=== PATIENT | female | born 1970 | race Caucasian/White ===

== ENCOUNTER → 2017-06-24 | Outpatient (CLI) | payer OTHER ==
[~2017-06-24] MED LIST: ASPI81TA27 PO; SIMV10TA84 PO
[2017-06-24 08:11] LABS: Basophils # (auto) 0 uL; Basophils % (auto) 0.4 % (0.0-2.0); Eosinophils # (auto) 0.2 uL; Eosinophils % (auto) 2.6 % (0.0-7.0); Hematocrit 43.5 % (36.0-46.0); Lymphocytes # (auto) 1.7 uL; Lymphocytes % (auto) 21.8 % (10.0-50.0); Mean Corpuscular Hemoglobin 32.1 pg (28.0-32.0); Mean Corpuscular Hgb Conc. 34.3 g/dL (32.0-36.0); Mean Corpuscular Volume 93.6 fL (80.0-100.0); Monocytes # (auto) 0.8 uL; Monocytes % (auto) 9.7 % (0.0-12.0); Neutrophils # (auto) 5.2 uL; Neutrophils % (auto) 65.5 % (37.0-80.0); Platelet Count (auto) 266 10^3/uL (140-450); Red Blood Cells 4.65 10^6/uL (4.0-5.20); White Blood Cell 7.9 10^3/uL (4.4-10.8)
[2017-06-24 08:35] LABS: Albumin 3.7 g/dL (3.4-5.0); BUN/Creatinine Ratio 14.8; Bilirubin, Total 0.5 mg/dL (0.2-1.0); Calcium 9.2 mg/dL (8.5-10.1); Potassium 4.4 mmol/L (3.5-5.1)
== END | disposition home or self-care (01) ==
LOC: LAB 07:28
PROVIDERS: ATTEND Physician Assistant
DX: E78.5 Hyperlipidemia, unspecified (principal); E11.22 Type 2 diabetes mellitus with diabetic chronic kidney disease; I12.9 Hypertensive chronic kidney disease with stage 1 through stage 4 chronic kidney disease, or unspecified chronic kidney disease; N18.3 Chronic kidney disease, stage 3 (moderate); Z86.73 Personal history of transient ischemic attack (TIA), and cerebral infarction without residual deficits; Z79.899 Other long term (current) drug therapy
CPT/HCPCS: 36415; 80053; 80061; 83036; 85025

== ENCOUNTER → 2018-02-02 | Outpatient (CLI) | payer OTHER ==
[2018-02-02 09:19] LABS: White Blood Cell 6.3 10^3/uL (4.4-10.8)
[2018-02-02 09:25] LABS: Basophils % (auto) 1.2 % (0.0-2.0); Lymphocytes % (auto) 20.1 % (10.0-50.0); Monocytes % (auto) 9.1 % (0.0-12.0); Neutrophils # (auto) 4.3 uL; Neutrophils % (auto) 67.6 % (37.0-80.0)
[2018-02-02 09:26] LABS: Basophils # (auto) 0.1 uL; Eosinophils # (auto) 0.1 uL; Hematocrit 44.7 % (36.0-46.0); Hemoglobin 15.2 g/dL (12.2-16.2); Lymphocytes # (auto) 1.3 uL; Mean Corpuscular Hemoglobin 32.2 pg (28.0-32.0); Mean Corpuscular Volume 94.5 fL (80.0-100.0); Monocytes # (auto) 0.6 uL; Platelet Count (auto) 264 10^3/uL (140-450); Red Blood Cells 4.72 10^6/uL (4.0-5.20); Red Cell Distribution Width 12.8 % (11.8-14.3)
[2018-02-02 10:45] LABS: Follicle Stimulating Hormone 11.42 IU/L (SEE BELOW); Leuteinizing Hormone 5.3 IU/L
== END | disposition home or self-care (01) ==
LOC: LAB 08:38
PROVIDERS: ATTEND Obstetrics & Gynecology
DX: N93.9 Abnormal uterine and vaginal bleeding, unspecified (principal); I10 Essential (primary) hypertension; E11.9 Type 2 diabetes mellitus without complications
CPT/HCPCS: 36415; 82670; 83001; 83002; 84403; 84443; 85025

== ENCOUNTER → 2018-10-01 | Outpatient (CLI) | payer OTHER ==
[~2018-10-01] MED LIST changes: +ASPI-404 PO; -ASPI81TA27 PO
[2018-10-01 10:36] LABS: Basophils # (auto) 0 uL; Basophils % (auto) 0.6 % (0.0-2.0); Eosinophils # (auto) 0.1 uL; Eosinophils % (auto) 1.7 % (0.0-7.0); Hematocrit 46.3 % (36.0-46.0); Hemoglobin 15.7 g/dL (12.2-16.2); Lymphocytes # (auto) 1.3 uL; Lymphocytes % (auto) 18.5 % (10.0-50.0); Mean Corpuscular Hemoglobin 31.9 pg (28.0-32.0); Mean Corpuscular Volume 93.8 fL (80.0-100.0); Monocytes # (auto) 0.7 uL; Monocytes % (auto) 10.7 % (0.0-12.0); Neutrophils # (auto) 4.7 uL; Neutrophils % (auto) 68.5 % (37.0-80.0); Platelet Count (auto) 258 10^3/uL (140-450); Red Blood Cells 4.94 10^6/uL (4.0-5.20); Red Cell Distribution Width 12.7 % (11.8-14.3); White Blood Cell 6.9 10^3/uL (4.4-10.8)
[2018-10-01 11:51] LABS: Follicle Stimulating Hormone 4.56 IU/L (SEE BELOW); Leuteinizing Hormone 1.9 IU/L
== END | disposition home or self-care (01) ==
LOC: LAB 10:07
PROVIDERS: ATTEND Obstetrics & Gynecology
DX: N95.1 Menopausal and female climacteric states (principal)
CPT/HCPCS: 36415; 82670; 83001; 83002; 84443; 85025

== ENCOUNTER → 2018-11-30 | Outpatient (CLI) | payer OTHER ==
[2018-11-30 09:40] LABS: Basophils # (auto) 0 uL; Basophils % (auto) 0.4 % (0.0-2.0); Eosinophils # (auto) 0.1 uL; Eosinophils % (auto) 1.5 % (0.0-7.0); Hematocrit 43.4 % (36.0-46.0); Hemoglobin 14.6 g/dL (12.2-16.2); Lymphocytes # (auto) 2.1 uL; Lymphocytes % (auto) 20.8 % (10.0-50.0); Mean Corpuscular Hemoglobin 31.7 pg (28.0-32.0); Mean Corpuscular Hgb Conc. 33.8 g/dL (32.0-36.0); Mean Corpuscular Volume 93.9 fL (80.0-100.0); Monocytes # (auto) 0.9 uL; Neutrophils # (auto) 6.7 uL; Neutrophils % (auto) 68.3 % (37.0-80.0); Platelet Count (auto) 292 10^3/uL (140-450); Red Blood Cells 4.62 10^6/uL (4.0-5.20); Red Cell Distribution Width 12.7 % (11.8-14.3); White Blood Cell 9.9 10^3/uL (4.4-10.8)
[2018-11-30 10:24] LABS: Potassium 4.1 mmol/L (3.5-5.1)
[2018-11-30 10:41] LABS: Albumin 3.4 g/dL (3.4-5.0); BUN/Creatinine Ratio 16.9; Bilirubin, Total 0.4 mg/dL (0.2-1.0); Calcium 9.1 mg/dL (8.5-10.1); Total Protein 7.6 g/dL (6.4-8.2)
== END | disposition home or self-care (01) ==
LOC: LAB 08:36
PROVIDERS: ATTEND Physician Assistant
DX: R03.0 Elevated blood-pressure reading, without diagnosis of hypertension (principal); E78.5 Hyperlipidemia, unspecified; N95.1 Menopausal and female climacteric states; F32.81 Premenstrual dysphoric disorder
CPT/HCPCS: 36415; 80053; 80061; 85025

== ENCOUNTER → 2019-03-14 | Outpatient (CLI) | payer OTHER ==
[2019-03-14 09:44] LABS: Albumin 3.8 g/dL (3.4-5.0); Calcium 8.7 mg/dL (8.5-10.1)
[2019-03-14 09:48] LABS: BUN/Creatinine Ratio 17.9; Bilirubin, Total 0.4 mg/dL (0.2-1.0); Total Protein 7.8 g/dL (6.4-8.2)
[2019-03-14 11:04] LABS: Basophils # (auto) 0 uL; Basophils % (auto) 0.4 % (0.0-2.0); Eosinophils # (auto) 0.2 uL; Eosinophils % (auto) 2.6 % (0.0-7.0); Hemoglobin 15.4 g/dL (12.2-16.2); Lymphocytes # (auto) 1.9 uL; Lymphocytes % (auto) 26.8 % (10.0-50.0); Mean Corpuscular Hgb Conc. 33.5 g/dL (32.0-36.0); Mean Corpuscular Volume 92.5 fL (80.0-100.0); Monocytes # (auto) 0.6 uL; Neutrophils # (auto) 4.3 uL; Neutrophils % (auto) 61.2 % (37.0-80.0); Platelet Count (auto) 283 10^3/uL (140-450); Red Blood Cells 4.97 10^6/uL (4.0-5.20); Red Cell Distribution Width 12.7 % (11.8-14.3); White Blood Cell 7.1 10^3/uL (4.4-10.8)
== END | disposition home or self-care (01) ==
LOC: LAB 09:00
PROVIDERS: ATTEND Physician Assistant
DX: E78.5 Hyperlipidemia, unspecified (principal); F32.81 Premenstrual dysphoric disorder; E55.9 Vitamin D deficiency, unspecified; R03.0 Elevated blood-pressure reading, without diagnosis of hypertension; R73.9 Hyperglycemia, unspecified
CPT/HCPCS: 36415; 80053; 80061; 82306; 85025

== ENCOUNTER → 2019-08-08 | Outpatient (CLI) | payer OTHER | END | disposition home or self-care (01) | LOC: LAB 11:18 | PROVIDERS: ATTEND Physician Assistant | DX: N39.0 Urinary tract infection, site not specified (principal) | CPT/HCPCS: 87086 ==

== ENCOUNTER → 2019-08-30 | Outpatient (CLI) | payer OTHER | END | disposition home or self-care (01) | LOC: LAB 10:41 | PROVIDERS: ATTEND Internal Medicine | DX: N39.0 Urinary tract infection, site not specified (principal) | CPT/HCPCS: 87086 ==

== ENCOUNTER → 2019-09-08 | Outpatient (CLI) | payer OTHER ==
[~2019-09-08] MED LIST changes: -ASPI-404 PO; +ASPI-543 PO
== END | disposition home or self-care (01) ==
LOC: LAB 13:23
PROVIDERS: ATTEND Urology
DX: N39.0 Urinary tract infection, site not specified (principal)
CPT/HCPCS: 87086; 87088; 87186

== ENCOUNTER → 2019-10-18 | Outpatient (CLI) | payer OTHER | END | disposition home or self-care (01) | LOC: LAB 12:05 | PROVIDERS: ATTEND Urology | DX: N39.0 Urinary tract infection, site not specified (principal) | CPT/HCPCS: 87086 ==

== ENCOUNTER → 2020-03-21 | Outpatient (CLI) | payer OTHER | END | disposition home or self-care (01) | LOC: LAB 10:26 | PROVIDERS: ATTEND Urology | DX: N39.0 Urinary tract infection, site not specified (principal) | CPT/HCPCS: 87086 ==

== ENCOUNTER → 2020-05-22 | Outpatient (CLI) | payer OTHER ==
[2020-05-22 08:47] LABS: Basophils # (auto) 0 10 ^3/uL (0-0.2); Basophils % (auto) 0.4 % (0.0-2.0); Eosinophils # (auto) 0.1 10 ^3/uL (0-0.8); Eosinophils % (auto) 1.7 % (0.0-7.0); Hematocrit 43.2 % (36.0-46.0); Hemoglobin 14.9 g/dL (12.2-16.2); Lymphocytes # (auto) 1.9 10 ^3/uL (0.4-5.4); Lymphocytes % (auto) 23.2 % (10.0-50.0); Mean Corpuscular Hemoglobin 32.4 pg (28.0-32.0); Mean Corpuscular Hgb Conc. 34.5 g/dL (32.0-36.0); Mean Corpuscular Volume 93.8 fL (80.0-100.0); Monocytes # (auto) 0.8 10 ^3/uL (0-1.3); Monocytes % (auto) 9.4 % (0.0-12.0); Neutrophils # (auto) 5.2 10 ^3/uL (1.6-8.6); Neutrophils % (auto) 65.3 % (37.0-80.0); Platelet Count (auto) 262 10^3/uL (140-450); Red Cell Distribution Width 12.7 % (11.8-14.3)
[2020-05-22 09:29] LABS: Albumin 3.9 g/dL (3.4-5.0); Potassium 4.3 mmol/L (3.5-5.1)
[2020-05-22 11:22] LABS: BUN/Creatinine Ratio 19.8; Bilirubin, Total 0.8 mg/dL (0.2-1.0); Calcium 9.4 mg/dL (8.5-10.1); Total Protein 7.9 g/dL (6.4-8.2)
== END | disposition home or self-care (01) ==
LOC: LAB 08:26
PROVIDERS: ATTEND Physician Assistant
DX: Z00.00 Encounter for general adult medical examination without abnormal findings (principal); E78.5 Hyperlipidemia, unspecified; R73.9 Hyperglycemia, unspecified; E55.9 Vitamin D deficiency, unspecified; N39.0 Urinary tract infection, site not specified; Z68.32 Body mass index [BMI] 32.0-32.9, adult
CPT/HCPCS: 36415; 80053; 80061; 82306; 85025

== ENCOUNTER → 2021-03-29 | Outpatient (CLI) | payer OTHER ==
[2021-03-29 09:13] LABS: Basophils # (auto) 0 10 ^3/uL (0-0.2); Basophils % (auto) 0.4 % (0.0-2.0); Eosinophils # (auto) 0.2 10 ^3/uL (0-0.8); Eosinophils % (auto) 2.7 % (0.0-7.0); Hemoglobin 14.6 g/dL (12.2-16.2); Lymphocytes # (auto) 1.7 10 ^3/uL (0.4-5.4); Lymphocytes % (auto) 27.2 % (10.0-50.0); Mean Corpuscular Hemoglobin 31.8 pg (28.0-32.0); Mean Corpuscular Hgb Conc. 34.1 g/dL (32.0-36.0); Mean Corpuscular Volume 93.3 fL (80.0-100.0); Monocytes # (auto) 0.6 10 ^3/uL (0-1.3); Monocytes % (auto) 9.5 % (0.0-12.0); Neutrophils # (auto) 3.8 10 ^3/uL (1.6-8.6); Neutrophils % (auto) 60.2 % (37.0-80.0); Red Blood Cells 4.61 10^6/uL (4.0-5.20); White Blood Cell 6.4 10^3/uL (4.4-10.8)
[2021-03-29 09:25] LABS: Albumin 3.6 g/dL (3.4-5.0); Potassium 4.1 mmol/L (3.5-5.1)
[2021-03-29 09:30] LABS: BUN/Creatinine Ratio 18.3; Bilirubin, Total 0.4 mg/dL (0.2-1.0); Total Protein 7.3 g/dL (6.4-8.2)
== END | disposition home or self-care (01) ==
LOC: LAB 08:19
PROVIDERS: ATTEND Nurse Practitioner Family
DX: E55.9 Vitamin D deficiency, unspecified (principal); F41.9 Anxiety disorder, unspecified; E73.9 Lactose intolerance, unspecified; E78.5 Hyperlipidemia, unspecified
CPT/HCPCS: 36415; 80053; 80061; 82306; 83036; 85025

== ENCOUNTER → 2021-06-17 | Outpatient (CLI) | payer OTHER | END | disposition home or self-care (01) | LOC: LAB 15:10 | PROVIDERS: ATTEND Urology | DX: N39.0 Urinary tract infection, site not specified (principal) | CPT/HCPCS: 87086 ==

== ENCOUNTER → 2021-06-25 | Outpatient (CLI) | payer OTHER | END | disposition home or self-care (01) | LOC: LAB 11:52 | PROVIDERS: ATTEND Urology | DX: N39.0 Urinary tract infection, site not specified (principal) | CPT/HCPCS: 87086 ==

== ENCOUNTER → 2022-04-07 | Outpatient (CLI) | payer OTHER ==
[2022-04-07 09:50] LABS: Basophils # (auto) 0 10 ^3/uL (0-0.2); Basophils % (auto) 0.5 % (0.0-2.0); Eosinophils # (auto) 0.2 10 ^3/uL (0-0.8); Eosinophils % (auto) 2.5 % (0.0-7.0); Hematocrit 43.9 % (36.0-46.0); Hemoglobin 15.2 g/dL (12.2-16.2); Lymphocytes # (auto) 1.8 10 ^3/uL (0.4-5.4); Lymphocytes % (auto) 25.4 % (10.0-50.0); Mean Corpuscular Hgb Conc. 34.6 g/dL (32.0-36.0); Mean Corpuscular Volume 92.5 fL (80.0-100.0); Monocytes # (auto) 0.7 10 ^3/uL (0-1.3); Monocytes % (auto) 9.2 % (0.0-12.0); Neutrophils # (auto) 4.5 10 ^3/uL (1.6-8.6); Neutrophils % (auto) 62.4 % (37.0-80.0); Red Blood Cells 4.74 10^6/uL (4.0-5.20); Red Cell Distribution Width 12.7 % (11.8-14.3); White Blood Cell 7.2 10^3/uL (4.4-10.8)
[2022-04-07 10:11] LABS: Potassium 4.2 mmol/L (3.5-5.1)
[2022-04-07 10:19] LABS: Albumin 3.7 g/dL (3.4-5.0); Bilirubin, Total 0.5 mg/dL (0.2-1.0); Calcium 9.1 mg/dL (8.5-10.1); Total Protein 7.7 g/dL (6.4-8.2)
== END | disposition home or self-care (01) ==
LOC: LAB 08:52
PROVIDERS: ATTEND Nurse Practitioner Family
DX: R73.03 Prediabetes (principal); E55.9 Vitamin D deficiency, unspecified; E78.5 Hyperlipidemia, unspecified
CPT/HCPCS: 36415; 80053; 80061; 82043; 82306; 84439; 84443; 85025

== ENCOUNTER → 2023-10-13 | Outpatient (CLI) | payer OTHER ==
[~2023-10-13] MED LIST changes: +SIMV10TA20 PO; -SIMV10TA84 PO
[2023-10-14 06:06] LABS: RPR Non Reactive (Non Reactive)
[2023-10-14 13:45] LABS: Chlamydia Trachomatis, NAA Negative (Negative); Neisseria gonorrhoeae, NAA Negative (Negative)
[2023-10-15 02:06] LABS: HSV 1 IgG Antibody <0.91 index (0.00-0.90); HSV 2 IgG Antibody <0.91 index (0.00-0.90)
== END | disposition home or self-care (01) ==
LOC: LAB 11:35
PROVIDERS: ATTEND Nurse Practitioner Family
DX: Z20.2 Contact with and (suspected) exposure to infections with a predominantly sexual mode of transmission (principal)
CPT/HCPCS: 86592; 86695; 86696; 86703

== ENCOUNTER → 2024-04-14 | Outpatient (CLI) | payer OTHER ==
[2024-04-14 11:15] LABS: Basophils # (auto) 0 10 ^3/uL (0-0.2); Basophils % (auto) 0.7 % (0.0-2.0); Eosinophils # (auto) 0.2 10 ^3/uL (0-0.8); Hematocrit 45.7 % (36.0-46.0); Hemoglobin 15.4 g/dL (12.2-16.2); Lymphocytes # (auto) 1.7 10 ^3/uL (0.4-5.4); Lymphocytes % (auto) 24.7 % (10.0-50.0); Mean Corpuscular Hemoglobin 31.1 pg (28.0-32.0); Mean Corpuscular Hgb Conc. 33.7 g/dL (32.0-36.0); Mean Corpuscular Volume 92.3 fL (80.0-100.0); Monocytes # (auto) 0.6 10 ^3/uL (0-1.3); Monocytes % (auto) 9.1 % (0.0-12.0); Neutrophils # (auto) 4.2 10 ^3/uL (1.6-8.6); Neutrophils % (auto) 62.5 % (37.0-80.0); Nucleated Red Blood Cells % 0.1 %; Platelet Count (auto) 256 10^3/uL (140-450); Red Blood Cells 4.94 10^6/uL (4.0-5.20); Red Cell Distribution Width 13.4 % (11.8-14.3); White Blood Cell 6.7 10^3/uL (4.4-10.8)
[2024-04-14 11:53] LABS: Alanine Aminotransferase 19 U/L (7-40); Albumin 4.8 g/dL (3.2-4.8); Anion Gap 9 (5-15); Aspartate Aminotransferase 20 U/L (13-40); BUN/Creatinine Ratio 13.5 (10.0-20.0); Blood Urea Nitrogen 12 mg/dL (9-23); Calcium 10.1 mg/dL (8.7-10.4); Carbon Dioxide 25 mmol/L (20-31); Chloride 103 mmol/L (98-107); Cholesterol 174 mg/dL (< 200); Glucose 99 mg/dL (74-106); HDL Cholesterol 60 mg/dL (40-59); LDL Cholesterol 95 mg/dL (< 100); Potassium 4.4 mmol/L (3.5-5.1); Sodium 137 mmol/L (136-145); Triglycerides 68 mg/dL (< 150)
[2024-04-14 11:54] LABS: Bilirubin, Total 0.6 mg/dL (0.2-1.0)
[2024-04-14 12:01] LABS: Alkaline Phosphatase 157 U/L (46-116)
== END | disposition home or self-care (01) ==
LOC: LAB 10:56
PROVIDERS: ATTEND Nurse Practitioner Family
DX: E78.5 Hyperlipidemia, unspecified (principal); E55.9 Vitamin D deficiency, unspecified; R73.03 Prediabetes; F41.9 Anxiety disorder, unspecified
CPT/HCPCS: 36415; 80053; 80061; 82043; 82306; 82672; 83036; 84403; 84443; 85025

== ENCOUNTER → 2024-06-29 | Outpatient (CLI) | payer OTHER ==
[2024-06-30 08:07] LABS: Immunoglobulin A 305 mg/dL (87-352)
[2024-07-02 06:07] LABS: Endomysial IgA Antibody Negative (Negative)
== END | disposition home or self-care (01) ==
LOC: LAB 09:33
PROVIDERS: ATTEND Physician Assistant
DX: R19.7 Diarrhea, unspecified (principal)
CPT/HCPCS: 82784; 83516; 86255; 87045; 87427; 87493

== ENCOUNTER → 2024-09-10 | Day surgery (SDC) | payer OTHER ==
[2024-09-07 11:33] LABS: Hematocrit 45.9 % (36.0-46.0); Hemoglobin 15.4 g/dL (12.2-16.2); Mean Corpuscular Hemoglobin 30.6 pg (28.0-32.0); Mean Corpuscular Volume 90.8 fL (80.0-100.0); Nucleated Red Blood Cells % 0.1 %
[2024-09-07 11:48] LABS: INR 0.97 (0.9-1.15); Partial Thromboplastin Time 29.7 SEC (24.5-34.5); Prothrombin Time 10.3 sec (9.3-11.8)
[2024-09-07 11:51] LABS: Alanine Aminotransferase 19 U/L (7-40); Albumin 4.8 g/dL (3.2-4.8); Anion Gap 9 (5-15); BUN/Creatinine Ratio 12.6 (10.0-20.0); Bilirubin, Total 0.4 mg/dL (0.2-1.0); Blood Urea Nitrogen 11 mg/dL (9-23); Calcium 10.1 mg/dL (8.7-10.4); Carbon Dioxide 27 mmol/L (20-31); Chloride 103 mmol/L (98-107); Glucose 94 mg/dL (74-106); Potassium 4.3 mmol/L (3.5-5.1); Sodium 139 mmol/L (136-145); Total Protein 7.9 g/dL (5.7-8.2)
[2024-09-07 11:57] LABS: Alkaline Phosphatase 137 U/L (46-116)
[~2024-09-10] VITALS: Ht 157.5 cm; Wt 79.8 kg
[~2024-09-10] MED LIST changes: +ASPI81CH59 PO; +CALC280T PO; +CHOL20007 PO; +D-MA1POW OR; +HYDR10SY18 PO; +MAGN400T40 PO; +OXYB10GE TOP; +ZINC100T5 PO
[2024-09-10] MEDS: fentaNYL CITRATE 100 MCG/2 ML VL ONE (10:03)
[2024-09-10] MEDS: MIDAZOLAM HCL 2MG/2ML 2ml VIAL (1mg/ml) ONE ×3 (10:03→10:26)
[2024-09-10] MEDS: EPINEPHrine HCL 1 MG/10 ML SYRG ONE ×2 (10:19→10:26)
--- NOTE | 2024-09-10 10:48 | DVHNC2 ---
Procedure - PROCEDURE DATE: SEPTEMBER 10, 2024 PERFORMED BY: DR. BACON REFERRING PROVIDER:DR LESTER KURTZ PROCEDURE PERFORMED: 1. COLONOSCOPY WITH MODERATE SEDATION 2.COLONOSCOPY WITH BIOPSY 3.COLONOSCOPY WITH COLD SNARE POLYPECTOMY 4.COLONOSCOPY WITH ENDOCLIP PLACEMENT PREPROCEDURE DIAGNOSIS: 1. COLON CANCER SCREENING 2.CHANGE IN BOWEL HABITS POSTPROCEDURE DIAGNOSIS: 1. INTERNALHEMORRHOIDS 2. SEVERE DIVERTICULOSIS WITH NARROWING LEFT COLON 3.INFLAMMED ILEOCECAL VALVE MEDICATIONS USED: 9MG OF VERSED AND 100 MCG OF FENTANYL IV INDICATIONS FOR PROCEDURE: THE PATIENT IS A 53`-YEAR-OLD FEMALE PRESENTS FOR OUTPATIENT COLONOSCOPY FOR SCREENING, CHANGE IN BOWEL HABITS THAT IMPROVED WITH D/C ABX FOR CHRONIC UTI DETAILS OF THE PROCEDURE: INFORMED CONSENT WAS OBTAINED AFTER RISKS BENEFITS AND ALTERNATIVES WERE DISCUSSED AT LENGTH WITH THE PATIENT. THE PATIENT GAVE CONSENT TO THE PROCEDURES WELL A MEDICATION USED FOR SEDATION. THE PATIENT WAS PLACED IN THE LEFT LATERAL DECUBITUS POSITION. DIGITAL RECTAL EXAMINATION SHOWED INTERNAL HEMORRHOIDS AN OLYMPUS VARIABLE TORSION ADULT COLONOSCOPE WAS INSERTED INTO THE RECTUM ADVANCE THE SIGMOID, I COULD NOT ADVANCE BEYOND THIS POINT DUE TO INFLAMMATION AND NARROWING DUE TO DIVERTICULOSIS. THE SCOPE WAS WITHDRAWN AND A ENDOSCOPE WAS INSERTED AND AND EASILY ADVANCED TO THE CECUM. THE SCOPE WAS THEN WITHDRAWN. THE PREP WAS GOOD WITH ONLY SMALL AMOUNTS OF STOOL. THE VALVE WAS ENLARGED AND INFLAMMED-BIOPSIES WERE TAKEN AND THE PATIENT HAD OOZING OF BLOOD. MORE THAN 30CC WAS NOTED AND EPINEPHRINE WAS INJECTED TO CONTROL BLEEDING. THE SCOPE WAS THEN WITHDRAWN. THERE WERE NO LARGE POLYPS, MASSES, STRICTURES, OR ARTERIOVENOUS MALFORMATION SEEN. THERE WAS SEVERE DIVERTICULOSIS SEEN. THERE WAS A POLYP IN THE RECTUM MEASURING 6MM REMOVED WITH SNARE AND ONE ENDOCLIP WAS PLACED. RETROFLEXION SHOWED INTERNAL HEMORRHOIDS. PATIENT TOLERATED THE PROCEDURE WELL. PREP SCORE: 9 IMPRESSION: 1. SEVERE DIVERTICULOSIS AND NARROWING OF THE LEFT COLON 2. INFLAMED IC VALVE BIOSPIES TAKEN AND OOZING OF BLOOD 3.INTERNAL HEMORRHOIDS 4.RECTAL POLYP RECOMMENDATIONS: 1. FOLLOW UP IN GI CLINIC 2. WILL OBSERVE FOR ANY COMPLICATIONS IN RECOVERY 3. REPEAT COLONOSCOPY IN 3 YEARS UNLESS INDICATED OTHERWISE 4.PATIENT WILL NEED CT ABD AND PELVIS 5.CONSIDER IBD WORKUP, FECAL CALPROTECTIN AND IMAGING I WOULD LIKE TO THANK DR. KURTZ FOR THE REFERRAL LANDY BACON MD Sep 10, 2024 10:48
--- NOTE | 2024-09-10 11:59 | DVH ---
EXAM: CT Abdomen and Pelvis Without Intravenous Contrast CLINICAL INDICATION: PAIN, BLOATING, ABD HARDNESS TECHNIQUE: Axial computed tomography images of the abdomen and pelvis without intravenous contrast. This CT exam was performed using one or more of the following dose reduction techniques: automated exposure control, adjustment of the mA and/or kV according to patient size, and/or use of iterative r econstruction technique. CONTRAST: COMPARISON: No relevant prior studies available. FINDINGS: LUNG BASES: Unremarkable. No mass. No consolidation. MEDIASTINUM: Small esophageal hiatal hernia. ABDOMEN: LIVER: Ill-defined hypodense lesion of the liver, likely cysts. This could be further evaluated wit h MRI or CT of the abdomen using hepatic mass protocol. Fatty infiltration of the liver. GALLBLADDER AND BILE DUCTS: Unremarkable. No calcified stones. No ductal dilation. PANCREAS: Unremarkable. No ductal dilation. SPLEEN: Unremarkable. No splenomegaly. ADRENALS: Unremarkable. No mass. KIDNEYS AND URETERS: Unremarkable. No obstructing stones. No hydronephrosis. STOMACH AND BOWEL: Fecal retention in the colon consistent with constipation. No obstruction. No mucosal thickening. PELVIS: APPENDIX: No findings to suggest acute appendicitis. BLADDER: Unremarkable. No stones. REPRODUCTIVE: Unremarkable as visualized. ABDOMEN and PELVIS: INTRAPERITONEAL SPACE: Unremarkable. No free air. No significant fluid collection. BONES/JOINTS: No acute fracture. No dislocation. SOFT TISSUES: Umbilical hernia containing fat. VASCULATURE: Unremarkable. No abdominal aortic aneurysm. LYMPH NODES: Unremarkable. No enlarged lymph nodes. OTHER FINDINGS: Comparison None. . IMPRESSION: 1. Ill-defined hypodense lesion of the liver, likely cysts. This could be further evaluated with MRI or CT of the abdomen using hepatic mass protocol. 2. Small esophageal hiatal hernia. 3. Fecal retention in the colon consistent with constipation. 4. Umbilical hernia containing fat. HS:Y
[2024-09-10 12:15] VITALS: BP 149/89; PULSE 81; RESP 13; O2SAT 100
== END | disposition home or self-care (01) ==
LOC: GI 09:21
PROVIDERS: ATTEND Specialist
DX: R19.5 Other fecal abnormalities (principal); D12.8 Benign neoplasm of rectum; K57.30 Diverticulosis of large intestine without perforation or abscess without bleeding; K64.8 Other hemorrhoids; E66.9 Obesity, unspecified; E78.00 Pure hypercholesterolemia, unspecified; F41.9 Anxiety disorder, unspecified; Z98.51 Tubal ligation status; Z98.890 Other specified postprocedural states; Z82.49 Family history of ischemic heart disease and other diseases of the circulatory system; Z79.82 Long term (current) use of aspirin; Z79.899 Other long term (current) drug therapy; Z86.73 Personal history of transient ischemic attack (TIA), and cerebral infarction without residual deficits
CPT/HCPCS: 36415; 45380; 45385; 74176; 80053; 85025; 85610; 85730; 88305; J0169; J2250; J3010; 99152; 99153

== ENCOUNTER 2024-10-13 11:43 | Outpatient (CLI) | payer OTHER ==
[2024-10-13 12:56] LABS: Alanine Aminotransferase 16 U/L (7-40); Albumin 4.7 g/dL (3.2-4.8); Anion Gap 7 (5-15); BUN/Creatinine Ratio 17.1 (10.0-20.0); Bilirubin, Total 0.3 mg/dL (0.2-1.0); Blood Urea Nitrogen 14 mg/dL (9-23); Calcium 9.5 mg/dL (8.7-10.4); Carbon Dioxide 28 mmol/L (20-31); Chloride 104 mmol/L (98-107); Glucose 100 mg/dL (74-106); Lipase 32 U/L (12-53); Potassium 4.3 mmol/L (3.5-5.1); Sodium 139 mmol/L (136-145); Total Protein 8.0 g/dL (5.7-8.2)
[2024-10-13 12:59] LABS: Alkaline Phosphatase 130 U/L (46-116)
== END 2024-10-13 17:00 | disposition home or self-care (01) ==
LOC: LAB 11:43
PROVIDERS: ATTEND Physician Assistant
DX: K76.89 Other specified diseases of liver (principal)
CPT/HCPCS: 36415; 80053; 83690

== ENCOUNTER 2024-10-28 15:06 | Inpatient (IN) | payer OTHER ==
[~2024-10-28] VITALS: Ht 157.5 cm; Wt 79.0 kg
--- NOTE | 2024-10-28 15:47 | ED.PDOC ---
GI ASSESSMENT HPI Comments This is a 53 year old female presenting to the ED with chief complaint of abdominal pain. Patient reports that she has been experiencing chronic LUQ abdominal pain for the past 2 months. Patient relays that she had a recent colonoscopy done in August where polyps and diverticulosis was found, but medications prescribed after have provided no relief. Patient denies any N/V/D, fever, chills, dizziness, or chest pain. Patient is a hypertensive at arrival. Chief Complaint: Abdominal Pain Time Seen by MD: 15:45 Primary Care Provider: JESICA Patricia Notes: Nurses Notes, Medications, Allergies Allergies: Coded Allergies: NO KNOWN ALLERGIES (Unverified , 06/06/16) Home Meds Reported Medications Aspirin (Aspirin Low Dose) 81 Mg Chw, 1 TAB PO DAILY, #90 TAB 3 Refills 09/07/24 Zinc Gluconate (ZINC) 100 Mg Tab, 100 MG PO, TAB 09/07/24 Cholecalciferol (VITAMIN D3) 2,000 Unit Tab, 1 TAB PO DAILY, #90 TAB 3 Refills 09/07/24 Calcium Amino Acid Chelate (Calcium) 280 Mg Tab, 280 MG PO, TAB 09/07/24 Magnesium Oxide (MAGNESIUM OXIDE) 400 Mg Tab, 1 TAB PO DAILY, #90 TAB 3 Refills 09/07/24 Mannose (D-MANNOSE) Pow, 1 OR, POW 09/07/24 Hydroxyzine Hcl (Hydroxyzine Hcl) 10 Mg/5 Ml Syp, 5 ML PO PRN, #150 ML 09/07/24 Oxybutynin Chloride (Gelnique) 10 % Gel, 1 PACK TOP DAILY, #90 PACK 3 Refills 09/07/24 Aspirin (Aspir-Low) 81 Mg Tab, 81 MG PO DAILY for 30 Days, MG 06/07/16 Simvastatin (Simvastatin) 10 Mg Tab, 10 MG PO DAILY for 30 Days, MG 06/07/16 Information Source: Patient Mode of Arrival: Ambulatory Timing: Months Duration: Since onset Prehospital treatment: None Quality: Sharp Vomitus: None Stool: Normal Severity: Moderate Recent: Recent Surgery Recent Hx of: None Pain Location: Diffuse, LLQ Associated sign and symptoms: Abdominal Pain Past Medical History PAST MEDICAL HISTORY: DM, High Lipids, HTN Surgical History: Denies all surgeries [employer]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 Family History Family History: Reviewed,noncontributory to illness, No family hx of DM, No family hx of Heart philip, No family hx of HTN Social History Smoker: Non-Smoker Alcohol: Denies ETOH Use Drugs: Denies Drug Use Lives In: Home Constitutional: denies: chills, diaphoresis, fatigue, fever, malaise, sweats, weakness, others EENTM: denies: blurred vision, double vision, ear bleeding, ear discharge, ear drainage, ear pain, ear ringing, eye pain, eye redness, hearing loss, mouth pain, mouth swelling, nasal discharge, nose bleeding, nose congestion, nose pain, photophobia, tearing, throat pain, throat swelling, voice changes, others Respiratory: denies: cough, hemoptysis, orthopnea, SOB at rest, shortness of breath, SOB with excertion, stridor, wheezing, others Cardiovascular: denies: chest pain, dizzy spells, diaphoresis, Dyspnea on exertion, edema, irregular heart beat, left arm pain, lightheadedness, palpitations, PND, syncope, others Gastrointestinal: reports: abdominal pain; denies: abdomen distended, blood streaked bowels, constipated, diarrhea, dysphagia, difficulty swallowing, hematemesis, melena, poor appetite, poor fluid intake, rectal bleeding, rectal pain, vomiting, others Genitourinary: denies: abnormal vagina bleeding, burning, dyspareunia, dysuria, flank pain, frequency, hematuria, incontinence, pain, , vagina discharge, urgency, others Neurological: denies: dizziness, fainting, headache, left sided numbness, left sided weakness, numbness, paresthesia, pre-existing deficit, right sided numbness, right sided weakness, seizure, speech problems, tingling, tremors, weakness, others Musculoskeletal: denies: back pain, gout, joint pain, joint swelling, muscle pain, muscle stiffness, neck pain, others Integumetry: denies: bruises, change in color, change in hair/nails, dryness, laceration, lesions, lumps, rash, wounds, others Allergic/Immunocompromised: denies: Difficulty Healing, Frequent Infections, Hives, Itching, others Hematologic/Lymphatic: denies: anemia, blood clots, easy bleeding, easy bruising, swollen glands, others Endocrine: denies: excessive hunger, excessive sweating, excessive thirst, excessive urination, flushing, intolerance to cold, intolerance to heat, unexplained weight gain, unexplained weight loss, others Psychiatric: denies: anxiety, bipolar disorder, depression, hopeless, panic disorder, schizophrenia, sleepless, suicidal, others All Other Systems: Reviewed and Negative Physical Exam General Appearance: Moderate Distress (Moderate distress due to diffuse left lower quadrant abdominal pain), Obese HEENT: Normal ENT Inspection, Pharynx Normal, TMs Normal Neck: Full Range of Motion, Non-Tender, Normal, Normal Inspection Respiratory: Chest Non-Tender, Lungs Clear, No Accessory Muscle Use, No Respiratory Distress, Normal Breath Sounds Cardiovascular: No Edema, No JVD, No Murmur, No Gallop, Normal Peripheral Pulses, Regular Rate/Rhythm Breast Exam: Deferred Gastrointestinal: Other (Diffuse bilateral lower quadrant tenderness to pal pation throughout with left-sided greater than right. Nonspecific pain. No pulsatile masses. Abdomen was mildly rigid.) Genitalia: Deferred Pelvic: Deferred Rectal: Deferred Extremities: No calf tenderness, Normal capillary refill, Normal inspection, Normal range of motion, Non-tender, No pedal edema Musculoskeletal : Apperance: Normal Neurologic: Alert, No Motor Deficits, Normal Affect, Normal Mood, No Sensory Deficits Cerebellar Function: NOT DONE Reflexes: NOT DONE Skin: Dry, Normal Color, Warm Lymphatic: No Adenopathy Was a procedure done? Was a procedure done?: No GI differential Dx Differential Diagnosis: Appendicitis, Cholecystitis, Constipation, Diverticular disease, Gastritis/PUD, Gastroenteritis, Pancreatitis, Other (Diverticulitis) X-Ray, Labs, Meds, VS Vital Signs Date Time Temp Pulse Resp B/P (MAP) Pulse Ox O2 Delivery O2 Flow Rate FiO2 10/28/24 15:17 75 10/28/24 15:07 98.2 100 16 151/115 96 98.2 Lab Test 10/28/24 15:54 Range/Units White Blood Count 12.0 H 4.4-10.8 10^3/uL Red Blood Count 5.31 H 4.0-5.20 10^6/uL Hemoglobin 16.3 H 12.2-16.2 g/dL Hematocrit 47.9 H 36.0-46.0 % Mean Corpuscular Volume 90.1 80.0-100.0 fL Mean Corpuscular Hemoglobin 30.7 28.0-32.0 pg Mean Corpuscular Hemoglobin Concent 34.1 32.0-36.0 g/dL Red Cell Distribution Width 13.2 11.8-14.3 % Platelet Count 326 140-450 10^3/uL Mean Platelet Volume 9.3 6.9-10.8 fL Neutrophils (%) (Auto) 83.1 H 37.0-80.0 % Lymphocytes (%) (Auto) 9.7 L 10.0-50.0 % Monocytes (%) (Auto) 6.1 0.0-12.0 % Eosinophils (%) (Auto) 0.6 0.0-7.0 % Basophils (%) (Auto) 0.5 0.0-2.0 % Neutrophils # (Auto) 10.0 H 1.6-8.6 10 ^3/uL Lymphocytes # (Auto) 1.2 0.4-5.4 10 ^3/uL Monocytes # (Auto) 0.7 0-1.3 10 ^3/uL Eosinophils # (Auto) 0.1 0-0.8 10 ^3/uL Basophils # (Auto) 0.1 0-0.2 10 ^3/uL Nucleated Red Blood Cells 0.1 % Sodium Level 141 136-145 mmol/L Potassium Level 4.6 3.5-5.1 mmol/L Chloride Level 104 98-107 mmol/L Carbon Dioxide Level 25 20-31 mmol/L Anion Gap 12 5-15 Blood Urea Nitrogen 10 9-23 mg/dL Creatinine 0.85 0.550-1.02 mg/dL Glomerular Filtration Rate Calc 83 >90 mL/min BUN/Creatinine Ratio 11.8 10.0-20.0 Serum Glucose 113 H 74-106 mg/dL Calcium Level 10.0 8.7-10.4 mg/dL Troponin I High Sensitivity < 3 L </=34 ng/L Lipase 25 12-53 U/L X-Ray, Labs, Meds, VS Comment All studies performed the ED were evaluated by me personally. EKG revealed a sinus rhythm with a rate of 75. Probable left atrial enlargement noted with right axis deviation. MA interval 122 and QT interval of 479. Serum studies were for any systemic concerns. Urinalysis was pending at time of this note. CT of the abdomen and pelvis revealed a small bowel obstruction and possible metastasis concerns. Liver involvement as well. Patient will be admitted for GI evaluation and possible surgical intervention. Time of 1ST Reevaluation: 18:15 Reevaluation 1ST: Improved Consultation: PCP Patient Education/Counseling: Diagnosis, Treatment Family Education/Counseling: Diagnosis, Treatment, No Family Present SEPSIS Sepsis Screen Date sepsis recognized/suspect: Oct 28, 2024 Time Sepsis recognized/suspect: 1509 Recent Procedure: No Respiratory Rate >20: No Heart Rate >90: Yes Temp<36 C (96.8 F) or >38.3 C: No SBP <90 or MAP <65 mmHG: No New Acute Mental Status Change: No Is the patient on CPAP, BIPAP,: No Physician Orders Electrocardigram (10/28/24 15:24) Urinalysis (10/28/24 15:43) Ct Ab Pel Wo Con-No Oral Or Iv (10/28/24 15:43) Vital Signs Date Time Temp Pulse Resp B/P (MAP) Pulse Ox O2 Delivery O2 Flow Rate FiO2 10/28/24 15:17 75 10/28/24 15:07 98.2 100 16 151/115 96 98.2 Laboratory Tests Test 10/28/24 15:54 White Blood Count 12.0 10^3/uL (4.4-10.8) H Departure 1 Departure Time of Disposition: 18:15 Impression: Primary Impression: Small bowel obstruction Additional Impressions: Hypertension Diabetes Disposition: ADMITTED INPATIENT Condition: Fair Discharged With: Self Critical Care Note Critical Care Time?: No Stability Stability form required: No Heart Score Heart Score: Heart Score Response (Comments) Value History Slightly Suspicious 0 EKG Repolarization Disturb 1 Age 45-64 1 Risk Factors 1 or 2 risk factors 1 Troponin Normal limit 0 Total 3 I personally scribed for NATO PARIKH PAC ([email or web address]) on 10/28/24 at 15:47. Electronically submitted by Manoj Frost ([email or web address]). NATO PARIKH PAC Oct 28, 2024 15:47
[2024-10-28 16:08] LABS: Hematocrit 47.9 % (36.0-46.0); Hemoglobin 16.3 g/dL (12.2-16.2); Mean Corpuscular Hemoglobin 30.7 pg (28.0-32.0); Mean Corpuscular Volume 90.1 fL (80.0-100.0); Nucleated Red Blood Cells % 0.1 %
[2024-10-28 16:25] LABS: Chloride 104 mmol/L (98-107); Potassium 4.6 mmol/L (3.5-5.1); Sodium 141 mmol/L (136-145)
[2024-10-28 16:27] LABS: Anion Gap 12 (5-15); Calcium 10.0 mg/dL (8.7-10.4); Carbon Dioxide 25 mmol/L (20-31)
[2024-10-28 16:32] LABS: BUN/Creatinine Ratio 11.8 (10.0-20.0); Blood Urea Nitrogen 10 mg/dL (9-23); Glucose 113 mg/dL (74-106); Lipase 25 U/L (12-53)
--- NOTE | 2024-10-28 16:32 | DVH ---
EXAM: CT CT AB PEL WO CON-NO ORAL OR IV INDICATION: Diffuse abdominal pain TECHNIQUE: Volumetric multidetector CT images of the abdomen and pelvis were obtained without contras t. All CT scans at this facility use dose modulation, iterative reconstruction, and/or weight based d osing when appropriate to reduce radiation dose to as low as reasonably achievable. COMPARISON: US ABDOMEN COMPLETE SONOGRAM on DOS: 10/18/24 FINDINGS: [LOWER CHEST]: The partially visualized lung bases are clear without a pleural effusion. Trace perica rdial effusion. Indeterminate nodule/ mass of the periphery of the right breast, measuring 0.9 cm [LIVER]: Oval cannonball like hypoattenuating lesions of the liver concerning primarily for metastati c disease. Dominant lesion of the left hepatic lobe, 2.7 cm. [GALLBLADDER AND BILIARY TREE]: No cholelithiasis. [SPLEEN]: Unremarkable. [PANCREAS]: Unremarkable. [ADRENAL GLANDS]: Unremarkable [KIDNEYS]: No hydronephrosis. No nephroureterolithiasis. No suspicious focal lesion. [BLADDER]: Unremarkable for the degree distention. [REPRODUCTIVE ORGANS]: Unremarkable. [BOWEL/MESENTERY]: Stomach is normal. Significant abnormal area of masslike spiculated appearance loc ated within the right lower quadrant measuring 3.4 x 2.3 cm with marginal coarse calcification (coron al image 43). Lesion possibly located in the region of the cecum to ileum and subsequent proximal sma ll-bowel obstruction with dilation up to 3.2 cm. Surgical consultation recommended. Areas of inconsp icuous nodularity and possible soft tissue irregularity along the anterior lower omentum and peritone al carcinomatosis not excluded. Small amount of sigmoid diverticulosis. [ASCITES]: Small volume ascites [LYMPHADENOPATHY]: Measurable abnormal CT apparent lymphadenopathy [VASCULATURE]: No aneurysmal dilatation. [ABDOMINAL WALL]: Unremarkable. [MUSCULOSKELETAL]: No acute fracture or aggressive focal osseous lesion. Multifocal degenerative nixon ge of the visualized spine. IMPRESSION: 1. Abnormal spiculated mass of the right lower quadrant with possible involvement of the cecum to ile um and subsequent proximal small-bowel obstruction. 2. Surgical consultation recommended. 3. Abnormal hypoattenuating lesions of the liver concerning for metastatic disease. 4. Abnormal nodularity of the anterior lower omentum and possible peritoneal carcinomatosis. 5. Small volume ascites.
[2024-10-28] MEDS: HYDROcodone-ACET 10/325MG TAB PO ONE (21:06)
[2024-10-28] MEDS: ONDANSETRON ODT 4 MG TAB PO ONE (21:08)
[2024-10-29] VITALS (9 sets, daily range): BP systolic 102–183; BP diastolic 60–136; PULSE 55–111; RESP 14–31; TEMP 98.1–98.4; O2SAT 94–99
[2024-10-29] MEDS ORDERED: ONDANSETRON HCL 4 MG/2 ML VIAL IV PRN (03:30)
[2024-10-29 03:47] LABS: Hematocrit 41.1 % (36.0-46.0); Hemoglobin 14.2 g/dL (12.2-16.2); Mean Corpuscular Hemoglobin 31.1 pg (28.0-32.0); Mean Corpuscular Volume 90.0 fL (80.0-100.0); Nucleated Red Blood Cells % 0.1 %
[2024-10-29] MEDS: PANTOPRAZOLE 40 MG/10 ML VIAL INJ IV ONE ×2 (03:57→04:00)
[2024-10-29 03:58] LABS: Alanine Aminotransferase 14 U/L (7-40); Alkaline Phosphatase 103 U/L (46-116); Anion Gap 12 (5-15); BUN/Creatinine Ratio 13.8 (10.0-20.0); Blood Urea Nitrogen 11 mg/dL (9-23); Calcium 9.5 mg/dL (8.7-10.4); Carbon Dioxide 24 mmol/L (20-31); Chloride 105 mmol/L (98-107); INR 1.07 (0.9-1.15); Partial Thromboplastin Time 28.9 SEC (24.5-34.5); Potassium 4.1 mmol/L (3.5-5.1); Prothrombin Time 11.3 sec (9.3-11.8); Sodium 141 mmol/L (136-145)
[2024-10-29 03:59] LABS: Total Protein 7.2 g/dL (5.7-8.2)
[2024-10-29 04:00] LABS: Albumin 4.0 g/dL (3.2-4.8); Bilirubin, Total 0.3 mg/dL (0.2-1.0)
--- NOTE | 2024-10-29 04:03 | DVHHPRES ---
History of Present Illness Resident Creating Document: TRINI HO RESIDENT History of Present Illness History of Present Illness (HPI): Yen Zafar is a 53-year-old female with a complex medical history including transient ischemic attack (TIA), chronic urinary tract infections (UTIs), dyslipidemia, urinary incontinence, overactive bladder, and diabetic nephropathy presented with a 10-day history of abdominal pain, vomiting, and diarrhea. She describes the abdominal pain as sharp, continuous, and radiating to the shoulder, with a severity of 10 out of 10. The pain worsens with food intake and improves with fasting. Associated symptoms include chills, bloating, and an inability to pass gas. She reports a 10-pound weight loss, decreased appetite, and abdominal discomfort upon eating. These symptoms reportedly began in May, and she underwent a colonoscopy in August. Additionally, she notes that her blood pressure readings have been elevated recently. She denies experiencing fever or shortness of breath. Past Medical History (PMH): TIA, chronic UTIs, dyslipidemia, urinary incontinence, overactive bladder, diabetic nephropathy Past Surgical History (PSH): Hysterectomy in 2019 Family history (FH): History of basal cell carcinoma in father at the age of 40 EtOH: Denies alcohol use Smoking /Vaping: Patient denies smoking Recreational Drugs: Denies recreational drug use Residence: Lives with and daughter Home Medications: Oxybutynin, simvastatin, nitrofurantoin Allergies: Seasonal allergies PCP: Dr. America Inman Specialist relevant to admission: GI, surgery Review of Systems Review of Systems CONSTITUTIONAL: Fever, night sweats, Lymphadenopathy, ecchymoses, fatigue: Negative, complains of decreased appetite and weight loss DERMATOLOGIC: Rash, New/growing/changing skin lesions: Negative HEENT: Vision change, eye pain, Rhinorrhea, sinus pain, epistaxis, dysphagia, odynophagia, globus sensation, Change in hearing, tinnitus, vertigo, otalgia, Dental problems, oral ulcers or lesions: : Negative ENDOCRINE: Weight change, heat or cold intolerance, tremor, insomnia, neck pain or swelling, Polyuria, polydipsia, polyphagia, Abnormal hair growth, change in nails: Negative CARDIOVASCULAR: Chest pain, palpitations, syncope, Edema, cyanosis, claudication, Orthopnea, paroxysmal nocturnal dyspnea: Negative PULMONARY: Shortness of breath, dyspnea with exertion, Cough, hemoptysis, wheezing, chest pain : Negative GI: Complains of abdominal pain, nausea, vomiting : Dysuria, frequency, urgency, Urinary incontinence, hematuria, foamy urine, nocturia, Change in libido, erectile dysfunction, Change in menses, dysmenorrhea, dyspaerunia, pelvic pain: : Negative MUSCULOSKELETAL: Joint swelling or pain, muscle pain, back pain: : Negative NEUROLOGIC: Headache, scotoma, Change in smell or taste, change in facial muscles, Muscle weakness, paresthesias, anesthesia, Ataxia, change in speech: Negative PSYCHIATRIC: Depression, anxiety, hallucinations, trang, suicidal/homicidal thoughts, Binging, purging: Negative Allergies: Coded Allergies: NO KNOWN ALLERGIES (Unverified , 06/06/16) Exam Vital Signs Vital Signs Date Time Temp Pulse Resp B/P (MAP) Pulse Ox O2 Delivery O2 Flow Rate FiO2 10/28/24 21:08 161/102 10/28/24 20:56 99.0 89 18 97 99.0 Exam General Appearance: Alert, Oriented X3, Cooperative, No acute distress HEENT: Atraumatic, PERRLA, EOMI, Mucous membrane moist/pink Respiratory: Clear to auscultation, Normal air movement Cardiovascular: Regular rate, Normal S1, Normal S2, No murmurs, no chest wall tenderness Abdominal: Diffuse abdominal tenderness, bowel sounds heard Extremities: No clubbing, No cyanosis, No edema, Normal pulses, No ten derness/swelling Skin: No rashes, No breakdown, No significant lesion Neuro: Normal gait, Normal speech, Strength at 5/5 X4 ext, Normal tone, Sensation intact, Cranial nerves 3-12 NL, Reflexes 2+ Psych/Mental Status: Mental status NL, Mood NL Labs/Xrays Labs Test 10/28/24 15:54 Range/Units White Blood Count 12.0 H 4.4-10.8 10^3/uL Red Blood Count 5.31 H 4.0-5.20 10^6/uL Hemoglobin 16.3 H 12.2-16.2 g/dL Hematocrit 47.9 H 36.0-46.0 % Mean Corpuscular Volume 90.1 80.0-100.0 fL Mean Corpuscular Hemoglobin 30.7 28.0-32.0 pg Mean Corpuscular Hemoglobin Concent 34.1 32.0-36.0 g/dL Red Cell Distribution Width 13.2 11.8-14.3 % Platelet Count 326 140-450 10^3/uL Mean Platelet Volume 9.3 6.9-10.8 fL Neutrophils (%) (Auto) 83.1 H 37.0-80.0 % Lymphocytes (%) (Auto) 9.7 L 10.0-50.0 % Monocytes (%) (Auto) 6.1 0.0-12.0 % Eosinophils (%) (Auto) 0.6 0.0-7.0 % Basophils (%) (Auto) 0.5 0.0-2.0 % Neutrophils # (Auto) 10.0 H 1.6-8.6 10 ^3/uL Lymphocytes # (Auto) 1.2 0.4-5.4 10 ^3/uL Monocytes # (Auto) 0.7 0-1.3 10 ^3/uL Eosinophils # (Auto) 0.1 0-0.8 10 ^3/uL Basophils # (Auto) 0.1 0-0.2 10 ^3/uL Nucleated Red Blood Cells 0.1 % Sodium Level 141 136-145 mmol/L Potassium Level 4.6 3.5-5.1 mmol/L Chloride Level 104 98-107 mmol/L Carbon Dioxide Level 25 20-31 mmol/L Anion Gap 12 5-15 Blood Urea Nitrogen 10 9-23 mg/dL Creatinine 0.85 0.550-1.02 mg/dL Glomerular Filtration Rate Calc 83 >90 mL/min BUN/Creatinine Ratio 11.8 10.0-20.0 Serum Glucose 113 H 74-106 mg/dL Calcium Level 10.0 8.7-10.4 mg/dL Troponin I High Sensitivity < 3 L </=34 ng/L Lipase 25 12-53 U/L SEPSIS Sepsis Screen Date sepsis recognized/suspect: Oct 28, 2024 Time Sepsis recognized/suspect: 1509 Recent Procedure: No Respiratory Rate >20: No Heart Rate >90: Yes Temp<36 C (96.8 F) or >38.3 C: No SBP <90 or MAP <65 mmHG: No New Acute Mental Status Change: No Is the patient on CPAP, BIPAP,: No Physician Orders Electrocardigram (10/28/24 15:24) Urinalysis (10/28/24 15:43) Ct Ab Pel Wo Con-No Oral Or Iv (10/28/24 15:43) Admit (10/28/24 21:13) Oxygen By Nasal Cannula (10/28/24 21:13) Stat Ekg For Chest Pain (10/28/24 21:13) Notify Of Changes From Base (10/28/24 21:13) Artist Model For 24 Hours (10/28/24 21:13) Emergency Dysrhythmia Protocol (10/28/24 21:13) Rhythm Strips Once Every Shift (10/28/24 21:13) Npo (Nothing By Mouth) Diet (10/29/24 Breakfast) Vital Signs Date Time Temp Pulse Resp B/P (MAP) Pulse Ox O2 Delivery O2 Flow Rate FiO2 10/28/24 21:08 161/102 10/28/24 20:56 99.0 89 18 161/102 (121) 97 99.0 10/28/24 15:17 75 10/28/24 15:07 98.2 100 16 151/115 96 98.2 Laboratory Tests Test 10/28/24 15:54 White Blood Count 12.0 10^3/uL (4.4-10.8) H Medications Medications Dose Ordered Sig/Pedro Pablo Route Start Time Stop Time Status Last Admin Dose Admin Acetaminophen/ Hydrocodone Bitart 1 tab ONCE ONCE PO 10/28/24 15:45 10/28/24 15:46 DC 10/28/24 21:06 1 TAB Clonidine HCl 0.2 mg ONCE ONCE PO 10/28/24 18:15 10/28/24 18:38 DC 10/28/24 21:08 0.2 MG Ondansetron HCl 4 mg ONCE ONCE PO 10/28/24 15:45 10/28/24 15:46 DC 10/28/24 21:08 4 MG Assessment/Plan Assessment/Plan Assessment and plan # Small bowel obstruction likely due to ileocecal mass - NPO - IV fluids next and GI consult - surgery consult - Pain medication - Patient does not have any active vomiting, we will consider NG tube once patient starts vomiting Colonoscopy report done recently: 1. SEVERE DIVERTICULOSIS AND NARROWING OF THE LEFT COLON 2. INFLAMED IC VALVE BIOSPIES TAKEN AND OOZING OF BLOOD 3.INTERNAL HEMORRHOIDS 4.RECTAL POLYP # Liver mass - Oval cannonball like hypoattenuating lesions of the liver concerning primarily for metastatic disease. Dominant lesion of the left hepatic lobe, 2.7 cm. 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 # History of transient ischemic attack - Follow-up with PCP on discharge - resume asa and statin once patient is on diet PUD prophylaxis: protonix 40mg DVT prophylaxis: brisk movement. Barriers to discharge: Medical diagnosis and management in progress. Patient lives with family. Independent for ADL. PCP: Dr. America Inman Specialist Relevent To Admission: GI, surgery Case discussed with Dr. Alvarado. Code Status: Full Code. Complex patient care discussion needed. Spend total 35 minutes for bedside assessment, case discussion and management. Plan discussed with: Patient My Orders Orders - TRINI HO Procedure Category Date Status Time Admit ADMIT 10/28/24 Transmitted 21:13 Oxygen By Nasal RT 10/28/24 Transmitted Cannula 21:13 Stat Ekg For Chest [facility] 10/28/24 In Process Pain 21:13 Notify Md Of Changes [facility] 10/28/24 In Process From Base 21:13 Artist Model For [facility] 10/28/24 In Process 24 Hours 21:13 Emergency Dysrhythmia [facility] 10/28/24 In Process Protocol 21:13 Rhythm Strips Once [facility] 10/28/24 In Process Every Shift 21:13 Npo (Nothing By DIET 10/29/24 Transmitted Mouth) Diet Breakfast Date of Service: Oct 28, 2024 Billing Provider: JANIE ALVARADO MD Common Visit Codes: [id number] INP/OBS CARE (HIGH) Secondary Visit Codes: [id number] CARE PLAN 30 MINUTES TRINI HO RESIDENT Oct 28, 2024 21:46 KEIKO BOYD Oct 29, 2024 08:31
[2024-10-29 04:10] LABS: Glucose 115 mg/dL (74-106)
[2024-10-29] MEDS: KETOROLAC TROMETH 30 MG/ML 1ML VIAL IV ONE (04:22)
[2024-10-29] MEDS: SODIUM CHLORIDE 0.9% 1,000 ML IV ONE (05:16)
--- NOTE | 2024-10-29 08:13 | DVH ---
Limited ultrasound abdomen INDICATION: for ascites Technique: 2-D real-time ultrasound was performed with axial and sagittal images submitted for evalu ation. FINDINGS: No drainable ascites is seen in the 4 quadrants of the abdomen IMPRESSION: 1. No signs of ascites
[2024-10-29] MEDS ORDERED: PATIENTS OWN MEDICATION (Simvastatin 10 MG) PO SCH (10:00)
[2024-10-29] MEDS ORDERED: OXYBUTYNIN CHL 5 MG TAB PO SCH (10:00)
--- NOTE | 2024-10-29 10:07 | DVHPN2 ---
Progress Note Date Seen: Oct 29, 2024 Medical Necessity Reason Pt with a Central, PICC or Fol: No Objective vital signs Vital Sign Date Time Temp Pulse Resp B/P (MAP) Pulse Ox O2 Delivery O2 Flow Rate FiO2 10/29/24 09:00 98.3 61 31 102/60 (74) 98 98.3 10/29/24 08:30 Room Air* 0 21 Total Intake and Output 10/28/24 10/28/24 10/29/24 15:00 23:00 07:00 Intake Total 150 ml Balance 150 ml medications Current Medications Medications Dose Ordered Sig/Pedro Pablo Route Start Time Stop Time Status Last Admin Dose Admin Metronidazole 100 ml @ 100 mls/hr Q8HR IV 10/29/24 14:00 Ondansetron HCl 4 mg Q4HPRN PRN IV 10/29/24 03:30 laboratory and microbiology Laboratory Tests 10/29/24 03:25 Test 10/29/24 03:25 Range/Units Serum Glucose 115 H 74-106 mg/dL Problem List/Assessment/Plan Problem List/Assessment/Plan 10/29/24 several weeks of abdominal pain mostly in the right lower abdomen, pain radiates to the back, has been accompanied by diarrhea , patient did not notice blood in her stool but over the last 4 weeks she lost over 10 pounds of body weight, she had a hysterectomy and left oophorectomy in the past and tubal ligation, she still has her right ovary. she had a colonoscopy two months ago and was told after the colonoscopy that " everything is normal and that she has some cysts on the liver but they are nothing to worry about.on examination her abdomen is soft, slightly distended and tender to deep palpation in the right lower quadrant, no guarding and no rebound . labs and imaging reviewed, explained to patient that we do not have an accurate diagnosis and that she does not need an emergency operation today. also explained that on the ct scan she seems top have a mass in the right lower abdomen which could be related to the right ovary or the right side of her intestine and that we will obtain an MRI to get a better idea of what we are dealing with. also explained that she will most likely need an operation to solve her current problem. Plan discussed with: Patient, Spouse HERMILO GIRON MD Oct 29, 2024 10:07
[2024-10-29] MEDS ORDERED: DICYCLOMINE HCL 10 MG CAP PO ONE (11:15)
[2024-10-29] MEDS ORDERED: ALPR2TAB2 PO (11:26)
[2024-10-29] MEDS ORDERED: NITR-52 PO (11:27)
[2024-10-29] MEDS: MORPHINE SULFATE INJ 2 MG/ml SYRG IV PRN (13:58)
--- NOTE | 2024-10-29 14:40 | DVHPN2 ---
Subjective The patient is seen and examined at bedside. Complain of weakness. Reviewed: Care Plan, H&P, Labs, Medications, Previous Orders, Radiology Changes from previous H/P or p: No Changes Objective Vitals Vital Signs Date Time Temp Pulse Resp B/P (MAP) Pulse Ox O2 Delivery O2 Flow Rate FiO2 10/29/24 13:58 63 12 114/64 10/29/24 13:00 98.1 98 98.1 10/29/24 11:23 Room Air* 0 21 Intake/Output Intake and Output 10/29/24 07:00 Intake Total 150 ml Balance 150 ml Intake IV Total 150 ml General Appearance: Alert, Oriented X3, mild distress HEENT: Atraumatic, PERRLA, EOMI, Mucous membr. moist/pink Neck: Supple Lungs: Clear to auscultation, Normal air movement Cardiovascular: Regular rate, Normal S1, Normal S2, No murmurs, Gallops, Rubs Abdomen: Normal bowel sounds, Soft, No tenderness Neuro: Cranial nerves 3-12 NL Psych/Mental Status: Mental status NL Medications Current Medications Medications Dose Ordered Sig/Pedro Pablo Route Start Time Stop Time Status Last Admin Dose Admin Metronidazole 100 ml @ 100 mls/hr Q8HR IV 10/29/24 14:00 10/29/24 14:11 100 MLS/HR Ondansetron HCl 4 mg Q4HPRN PRN IV 10/29/24 03:30 Morphine Sulfate 1 mg Q4HP PRN IV 10/29/24 13:30 10/29/24 13:58 1 MG Laboratory Results Laboratory Tests 10/29/24 03:25 Chemistry Test 10/28/24 15:54 10/29/24 03:25 Calcium Level 10.0 mg/dL (8.7-10.4) 9.5 mg/dL (8.7-10.4) Albumin 4.0 g/dL (3.2-4.8) Total Protein 7.2 g/dL (5.7-8.2) Coagulation Test 10/29/24 03:25 Prothrombin Time 11.3 sec (9.3-11.8) Prothrombin Time INR 1.07 (0.9-1.15) Activated Partial Thromboplast Time 28.9 SEC (24.5-34.5) Lipid panel Test 10/28/24 15:54 Lipase 25 U/L (12-53) LFT Test 10/29/24 03:25 Alanine Aminotransferase (ALT) 14 U/L (7-40) Alkaline Phosphatase 103 U/L (46-116) Aspartate Amino Transferase (AST) 15 U/L (13-40) Total Bilirubin 0.3 mg/dL (0.2-1.0) Urinalysis Test 10/29/24 05:43 Urine Test Negative (Negative) Labs and/or images reviewed: Labs reviewed by me Assessment/Plan Assessment/Plan # Small bowel obstruction likely due to ileocecal mass - NPO - IV fluids next and GI consult - surgery consult - Pain medication - Patient does not have any active vomiting, we will consider NG tube once patient starts vomiting Colonoscopy report done recently: 1. SEVERE DIVERTICULOSIS AND NARROWING OF THE LEFT COLON 2. INFLAMED IC VALVE BIOSPIES TAKEN AND OOZING OF BLOOD 3.INTERNAL HEMORRHOIDS 4.RECTAL POLYP # Liver mass - Oval cannonball like hypoattenuating lesions of the liver concerning primarily for metastatic disease. Dominant lesion of the left hepatic lobe, 2.7 cm. 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 # History of transient ischemic attack - Follow-up with PCP on discharge - resume asa and statin once patient is on diet PUD prophylaxis: protonix 40mg DVT prophylaxis: brisk movement. Continuing current management. Appreciate surgery input. Plan discussed with: Patient My Orders Orders - ARTEM VILLATORO MD Procedure Category Date Status Time Morphine Sulfate PHA 10/29/24 In Process Injection 13:30 Date of Service: Oct 29, 2024 Billing Provider: ARTEM VILLATORO MD Common Visit Codes: [id number] INP/OBS CARE(HIGH) ARTEM VILLATORO MD Oct 29, 2024 14:40
--- NOTE | 2024-10-29 15:29 | DVHINCON2 ---
Date of service: Oct 29, [address] Whatley Reason for Consultation Right lower quadrant pain and abnormal finding GI tract imaging History of Present Illness History of Present Illness (HPI): Yen Zafar is a 53-year-old female with a complex medical history including transient ischemic attack (TIA), chronic urinary tract infections (UTIs), dyslipidemia, urinary incontinence, overactive bladder, and diabetic nephropathy presented with a 10-day history of abdominal pain, vomiting, and diarrhea. She describes the abdominal pain as sharp, continuous, and radiating to the shoulder, with a severity of 10 out of 10. The pain worsens with food intake and improves with fasting. Associated symptoms include chills, bloating, and an inability to pass gas. She reports a 10-pound weight loss, decreased appetite, and abdominal discomfort upon eating. These symptoms reportedly began in May, and she underwent a colonoscopy in August. Additionally, she notes that her blood pressure readings have been elevated recently. She denies experiencing fever or shortness of breath. Patient has been complaining of chronic right lower quadrant pain Her recent ultrasound on October 18 had shown suspicious liver lesions. She had been scheduled for outpatient elective MRI through the clinic Recent outpatient elective colonoscopy by Dr Schroeder on September 10, 2024 POSTPROCEDURE DIAGNOSIS: 1. INTERNALHEMORRHOIDS 2. SEVERE DIVERTICULOSIS WITH NARROWING LEFT COLON 3.INFLAMMED ILEOCECAL VALVE Past Medical History Past Medical History (PMH): TIA, chronic UTIs, dyslipidemia, urinary incontinence, overactive bladder, diabetic nephropathy Past Surgical History Past Surgical History (PSH): Left oopherectomy many yrs ago;Hysterectomy in 2019 Family History: FH: hypertension G8 FATHER FH: stroke G8 FATHER Family History Family history (FH): History of basal cell carcinoma in father at the age of 40 Home Medications: Oxybutynin, simvastatin, nitrofurantoin Allergies: Seasonal allergies PCP: Dr. America Inman Specialist relevant to admission: GI, surgery Social History EtOH: Denies alcohol use Smoking /Vaping: Patient denies smoking Recreational Drugs: Denies recreational drug use Residence: Lives with and daughter Allergies: Coded Allergies: NO KNOWN ALLERGIES (Unverified , 06/06/16) Home Meds Reported Medications Nitrofurantoin (Nitrofurantoin) 100 Mg Cap, 1 CAP PO DAILY, #14 CAP 10/29/24 Alprazolam (Xanax) 2 Mg Tab, 5 MG PO PRN, TAB 10/29/24 Zinc Gluconate (ZINC) 100 Mg Tab, 100 MG PO, TAB 09/07/24 Cholecalciferol (VITAMIN D3) 2,000 Unit Tab, 1 TAB PO DAILY, #90 TAB 3 Refills 09/07/24 Calcium Amino Acid Chelate (Calcium) 280 Mg Tab, 280 MG PO, TAB 09/07/24 Magnesium Oxide (MAGNESIUM OXIDE) 400 Mg Tab, 1 TAB PO DAILY, #90 TAB 3 Refills 09/07/24 Hydroxyzine Hcl (Hydroxyzine Hcl) 10 Mg/5 Ml Syp, 5 ML PO PRN, #150 ML 09/07/24 Oxybutynin Chloride (Gelnique) 10 % Gel, 1 PACK TOP DAILY, #90 PACK 3 Refills 09/07/24 Simvastatin (Simvastatin) 10 Mg Tab, 10 MG PO DAILY for 30 Days, MG 06/07/16 Discontinued Reported Medications Aspirin (Aspirin Low Dose) 81 Mg Chw, 1 TAB PO DAILY, #90 TAB 3 Refills 09/07/24 Aspirin (Aspir-Low) 81 Mg Tab, 81 MG PO DAILY for 30 Days, MG 06/07/16 Current Medications Current Medications Medications (Trade) Dose Ordered Sig/Pedro Pablo Route PRN Reason Start Time Stop Time Status Last Admin Oxybutynin Chloride (Ditropan Tablet) 5 mg BID PO 10/29/24 10:00 10/29/24 03:08 DC Patient Own Medication 10 mg DAILY PO 10/29/24 10:00 10/29/24 03:09 DC Metronidazole 100 ml @ 100 mls/hr Q8HR IV 10/29/24 14:00 10/29/24 14:11 Ondansetron HCl (Zofran) 4 mg Q4HPRN PRN IV NAUSEA / VOMITING 10/29/24 03:30 Morphine Sulfate 1 mg Q4HP PRN IV PAIN SCALE 7 THRU 10 10/29/24 13:30 10/29/24 13:58 Review of Systems As per HPI Vital Signs Vital Signs Date Time Temp Pulse Resp B/P (MAP) Pulse Ox O2 Delivery O2 Flow Rate FiO2 10/29/24 13:58 63 12 114/64 10/29/24 13:00 98.1 98 98.1 10/29/24 11:23 Room Air* 0 21 Physical Exam General Appearance: Alert, Oriented X3, Cooperative, No acute distress HEENT: Atraumatic, PERRLA, EOMI, Mucous membrane moist/pink Respiratory: Clear to auscultation, Normal air movement Cardiovascular: Regular rate, Normal S1, Normal S2, No murmurs, no chest wall tenderness Abdominal: Diffuse abdominal tenderness, bowel sounds heard Extremities: No clubbing, No cyanosis, No edema, Normal pulses, No tenderness/swelling Skin: No rashes, No breakdown, No significant lesion Neuro: Normal gait, Normal speech, Strength at 5/5 X4 ext, Normal tone, Sensation intact, Cranial nerves 3-12 NL, Reflexes 2+ Psych/Mental Status: Mental status NL, Mood NL Labs/Diagnostic Data Labs Test 10/29/24 05:43 10/29/24 03:25 10/28/24 15:54 Range/Units Urine Test Negative Negative White Blood Count 6.7 # 4.4-10.8 10^3/uL Red Blood Count 4.57 4.0-5.20 10^6/uL Hemoglobin 14.2 12.2-16.2 g/dL Hematocrit 41.1 # 36.0-46.0 % Mean Corpuscular Volume 90.0 80.0-100.0 fL Mean Corpuscular Hemoglobin 31.1 28.0-32.0 pg Mean Corpuscular Hemoglobin Concent 34.6 32.0-36.0 g/dL Red Cell Distribution Width 13.3 11.8-14.3 % Platelet Count 276 140-450 10^3/uL Mean Platelet Volume 9.4 6.9-10.8 fL Neutrophils (%) (Auto) 62.9 37.0-80.0 % Lymphocytes (%) (Auto) 21.6 10.0-50.0 % Monocytes (%) (Auto) 14.9 H 0.0-12.0 % Eosinophils (%) (Auto) 0.2 0.0-7.0 % Basophils (%) (Auto) 0.4 0.0-2.0 % Neutrophils # (Auto) 4.2 1.6-8.6 10 ^3/uL Lymphocytes # (Auto) 1.4 0.4-5.4 10 ^3/uL Monocytes # (Auto) 1.0 0-1.3 10 ^3/uL Eosinophils # (Auto) 0 0-0.8 10 ^3/uL Basophils # (Auto) 0 0-0.2 10 ^3/uL Nucleated Red Blood Cells 0.1 % Prothrombin Time 11.3 9.3-11.8 sec Prothrombin Time INR 1.07 0.9-1.15 Activated Partial Thromboplast Time 28.9 24.5-34.5 SEC Sodium Level 141 136-145 mmol/L Potassium Level 4.1 3.5-5.1 mmol/L Chloride Level 105 98-107 mmol/L Carbon Dioxide Level 24 20-31 mmol/L Anion Gap 12 5-15 Blood Urea Nitrogen 11 9-23 mg/dL Creatinine 0.80 0.550-1.02 mg/dL Glomerular Filtration Rate Calc 89 >90 mL/min BUN/Creatinine Ratio 13.8 10.0-20.0 Serum Glucose 115 H 74-106 mg/dL Calcium Level 9.5 8.7-10.4 mg/dL Total Bilirubin 0.3 0.2-1.0 mg/dL Aspartate Amino Transferase (AST) 15 13-40 U/L Alanine Aminotransferase (ALT) 14 7-40 U/L Alkaline Phosphatase 103 46-116 U/L Total Protein 7.2 5.7-8.2 g/dL Albumin 4.0 3.2-4.8 g/dL Carcinoembryonic Antigen < 0.50 <=5.0 ng/mL Beta HCG, Quantitative 4.5 H 1.5-4.2 mIU/mL Troponin I High Sensitivity < 3 L </=34 ng/L Lipase 25 12-53 U/L CT SCAN ABD PELVIS IMPRESSION: 1. Abnormal spiculated mass of the right lower quadrant with possible involvement of the cecum to ileum and subsequent proximal small-bowel obstruction. 2. Surgical consultation recommended. 3. Abnormal hypoattenuating lesions of the liver concerning for metastatic disease. 4. Abnormal nodularity of the anterior lower omentum and possible peritoneal carcinomatosis. 5. Small volume ascites. Abd USG IMPRESSION: Coarsened liver echotexture suggestive of chronic liver disease. There are multiple hepatic indeterminate lesions measuring up to 3 cm. Recommend further evaluation with a MRI multiphase liver. No ascites Problems(with codes): (1) Abnormal finding on GI tract imaging (2) RLQ abdominal mass (3) RLQ abdominal pain (4) Diabetes (5) Hypertension (6) Small bowel obstruction (7) TIA (transient ischemic attack) (8) Multiple metastatic lesions in liver Plan/Recommendation Plan Suspect probable right lower quadrant spiculated mass with metastatic lesions in the liver and possible peritoneal carcinomatosis Patient has been seen by surgical consult ; consideration for OBGYN consult also She is currently NPO except for ice chips am going to start her on IV Clinimix If she has any recurrent nausea vomiting we will insert an NG tube to low int ermittent suction Pain control, IV antibiotics ; Bentyl as needed for abdominal pain or [place] Check tumor markers including CA 125, CEA, serum alpha fetoprotein, CA 19 nine Review recent colonoscopy pathology results IR consult for CT-guided biopsy of the liver lesions Awaiting MRI with oral and IV contrast Plan discussed with: Patient, Spouse, Other (ER Nurse) JOSE A SEYMOUR MD Oct 29, 2024 15:29
--- NOTE | 2024-10-29 16:13 | DVH ---
EXAM: MRI MRI ABD PLEVIS W/WO CONT HISTORY: Liver lesions COMPARISON: CT CT AB PEL WO CON-NO ORAL OR IV on DOS: 10/28/24 TECHNIQUE: Multiplanar, multisequence imaging of the abdomen and pelvis was performed with and withou t contrast. FINDINGS: [LOWER CHEST]: No pleural effusion. [LIVER]: In regards to the clinical question, 2 dominant lesions located within the right and left he patic lobes demonstrate heterogeneous T2 signal with heterogeneous enhancement concerning for metasta tic disease. Right liver lesion measures 2.2 cm, hepatic segment 7. Left hepatic segment 2 lesion baylee sures 3.1 cm. Question additional inconspicuous 0.7 cm lesion in hepatic segment 8. Diffusion images demonstrate extensive nearly innumerable T2 hyperintense lesions which are essentially occult on post contrast imaging. There are 2 lesions on diffusion in the left hepatic lobe. Phleboliths in the pelvi s. refer to series 7. [SPLEEN]: Unremarkable. [PANCREAS]: The pancreas is normal in appearance without focal lesions. Normal pancreatic duct size. [GALLBLADDER AND DUCTS]: Gallbladder is normal in appearance. The cystic duct, right and left hepatic ducts, common hepatic duct, and common bile ducts are unremarkable. [ADRENAL GLANDS]: Unremarkable. [KIDNEYS]: Normal enhancement without suspicious lesions or hydronephrosis. [VISUALIZED BOWEL]: Upon correlation with the prior CT for high-resolution, significant abnormal area of possible spiculation with enhancement measuring 3.4 x 3.4 cm in the right lower quadrant potentia lly involving the distal ileum. On postcontrast of the pelvis, question abnormal area nodular enhance ment along the margins of the distal small bowel loops in the lower anterior pelvis (series 28, image 11). Presumed spiculated masslike area demonstrates homogeneous enhancement. Adjacent asymmetric enh ancement along the distal ileal loops. [VASCULATURE]: Unremarkable. [LYMPHADENOPATHY]: No evidence for lymphadenopathy. [ASCITES]: Trace volume right pericolic gutter, Left upper quadrant perisplenic and perihepatic ascit es. Additional trace ascites at the level of the false pelvis on along the margins of the distal sma ll bowel. [MUSCULOSKELETAL]: Bone marrow signal is normal. Presumed 2.3 cm thoracic vertebral body hemangioma i ncompletely characterized with narrow zone of transition [OTHER]: None IMPRESSION: 1. Upon correlation with the prior CT, significant abnormal area of possible spiculation with enhance ment measuring 3.4 x 3.4 cm in the right lower quadrant potentially involving the distal ileum. Addit ional favor abnormal enhancement along the lower anterior peritoneum. 2. Adjacent asymmetric enhancement along the distal ileal loops. 3. Two dominant lesions located within the right and left hepatic lobes demonstrate heterogeneous T2 signal with heterogeneous enhancement concerning for metastatic disease. Superimposed innumerable les ions throughout the liver best appreciated on diffusion. 4. Right liver lesion measures 2.2 cm, hepatic segment 5. Left hepatic segment 2 lesion measures 3.1 cm. 6. Trace volume right pericolic gutter, Left upper quadrant perisplenic and perihepatic ascites. 7. No measurable lymphadenopathy. 8. Overall favor metastatic disease and recommend CT versus ultrasound-guided biopsy. Left hepatic lo be lesion may be amenable to ultrasound-guided biopsy.
[2024-10-29] MEDS ORDERED: CLINIMIX PER PHARMACY 0 ML IV SCH (18:15)
[2024-10-29] MEDS ORDERED: DEXTROSE (50%) 50ML SYRG IV SCH (18:30)
[2024-10-29] MEDS: AMINO ACID INFUSION IN D10W 1,000 ML IV SCH (22:45)
[2024-10-29] MEDS: GADOTERATE MEG 10 MMOL/20ml INJ (0.5MMOL/ml) IV ONE (23:03)
[2024-10-29] MEDS: InsuLIN REG 1unit/0.01ml Soln (100units/ml) SC SCH (23:46)
[2024-10-29] MEDS: ACCU-CHEK COMFORT CURVE STRIP VI SCH (23:46)
[2024-10-30] VITALS (8 sets, daily range): BP systolic 118–166; BP diastolic 74–97; PULSE 56–85; RESP 14–18; TEMP 97.6–98.2; O2SAT 96–98
[2024-10-30 06:39] LABS: Alanine Aminotransferase 12 U/L (7-40); Albumin 3.7 g/dL (3.2-4.8); Alkaline Phosphatase 90 U/L (46-116); Anion Gap 11 (5-15); BUN/Creatinine Ratio 16.0 (10.0-20.0); Blood Urea Nitrogen 13 mg/dL (9-23); Calcium 8.8 mg/dL (8.7-10.4); Carbon Dioxide 23 mmol/L (20-31); Glucose 99 mg/dL (74-106); Magnesium 2.0 mg/dL (1.6-2.6); Potassium 3.6 mmol/L (3.5-5.1); Sodium 141 mmol/L (136-145); Total Protein 6.4 g/dL (5.7-8.2)
[2024-10-30 06:40] LABS: Bilirubin, Total 0.4 mg/dL (0.2-1.0)
[2024-10-30 06:58] LABS: Chloride 107 mmol/L (98-107)
--- NOTE | 2024-10-30 09:35 | DVHINCON2 ---
Date of service: Oct 30, 2024 Family History: FH: hypertension G8 FATHER FH: stroke G8 FATHER Allergies: Coded Allergies: NO KNOWN ALLERGIES (Unverified , 06/06/16) Home Meds Reported Medications Nitrofurantoin (Nitrofurantoin) 100 Mg Cap, 1 CAP PO DAILY, #14 CAP 10/29/24 Alprazolam (Xanax) 2 Mg Tab, 5 MG PO PRN, TAB 10/29/24 Zinc Gluconate (ZINC) 100 Mg Tab, 100 MG PO, TAB 09/07/24 Cholecalciferol (VITAMIN D3) 2,000 Unit Tab, 1 TAB PO DAILY, #90 TAB 3 Refills 09/07/24 Calcium Amino Acid Chelate (Calcium) 280 Mg Tab, 280 MG PO, TAB 09/07/24 Magnesium Oxide (MAGNESIUM OXIDE) 400 Mg Tab, 1 TAB PO DAILY, #90 TAB 3 Refills 09/07/24 Hydroxyzine Hcl (Hydroxyzine Hcl) 10 Mg/5 Ml Syp, 5 ML PO PRN, #150 ML 09/07/24 Oxybutynin Chloride (Gelnique) 10 % Gel, 1 PACK TOP DAILY, #90 PACK 3 Refills 09/07/24 Simvastatin (Simvastatin) 10 Mg Tab, 10 MG PO DAILY for 30 Days, MG 06/07/16 Discontinued Reported Medications Aspirin (Aspirin Low Dose) 81 Mg Chw, 1 TAB PO DAILY, #90 TAB 3 Refills 09/07/24 Aspirin (Aspir-Low) 81 Mg Tab, 81 MG PO DAILY for 30 Days, MG 06/07/16 Current Medications Current Medications Medications (Trade) Dose Ordered Sig/Pedro Pablo Route PRN Reason Start Time Stop Time Status Last Admin Oxybutynin Chloride (Ditropan Tablet) 5 mg BID PO 10/29/24 10:00 10/29/24 03:08 DC Patient Own Medication 10 mg DAILY PO 10/29/24 10:00 10/29/24 03:09 DC Metronidazole 100 ml @ 100 mls/hr Q8HR IV 10/29/24 14:00 10/30/24 05:51 Morphine Sulfate 1 mg Q4HP PRN IV PAIN SCALE 7 THRU 10 10/29/24 13:30 10/29/24 13:58 Amino Acids 0 ml @ 0 mls/hr PER PHARMACY IV 10/29/24 18:15 Amino Acids/ Electrolytes/ Dextrose 1,000 ml @ 41 mls/hr DAILY@2200 IV 10/29/24 22:00 10/29/24 22:45 Diagnostic Test (Pha) (Accu-Chek Comfort Curve T) 1 strip Q6HR 10/30/24 00:00 10/30/24 05:51 Insulin Human Regular (InsuLIN R) FOLLOW SLIDING SCALE Q6HR SC 10/30/24 00:00 Dextrose 50 ml UD IV 10/29/24 18:30 Vital Signs Vital Signs Date Time Temp Pulse Resp B/P (MAP) Pulse Ox O2 Delivery O2 Flow Rate FiO2 10/30/24 09:09 97.6 56 16 124/76 (92) 96 97.6 10/29/24 20:00 Room Air* 0 21 Labs/Diagnostic Data Labs Test 10/30/24 05:49 10/30/24 05:48 10/29/24 15:41 10/29/24 05:43 Range/Units POC Glucose 113 H 70-106 mg/dl Sodium Level 141 136-145 mmol/L Potassium Level 3.6 3.5-5.1 mmol/L Chloride Level 107 98-107 mmol/L Carbon Dioxide Level 23 20-31 mmol/L Anion Gap 11 5-15 Blood Urea Nitrogen 13 9-23 mg/dL Creatinine 0.81 0.550-1.02 mg/dL Glomerular Filtration Rate Calc 88 >90 mL/min BUN/Creatinine Ratio 16.0 10.0-20.0 Serum Glucose 99 74-106 mg/dL Calcium Level 8.8 8.7-10.4 mg/dL Phosphorus Level 2.5 2.4-5.1 mg/dL Magnesium Level 2.0 1.6-2.6 mg/dL Total Bilirubin 0.4 0.2-1.0 mg/dL Aspartate Amino Transferase (AST) 15 13-40 U/L Alanine Aminotransferase (ALT) 12 7-40 U/L Alkaline Phosphatase 90 46-116 U/L Total Protein 6.4 5.7-8.2 g/dL Albumin 3.7 3.2-4.8 g/dL Urine Test Negative Negative Test 10/29/24 03:25 10/28/24 15:54 Range/Units White Blood Count 6.7 # 4.4-10.8 10^3/uL Red Blood Count 4.57 4.0-5.20 10^6/uL Hemoglobin 14.2 12.2-16.2 g/dL Hematocrit 41.1 # 36.0-46.0 % Mean Corpuscular Volume 90.0 80.0-100.0 fL Mean Corpuscular Hemoglobin 31.1 28.0-32.0 pg Mean Corpuscular Hemoglobin Concent 34.6 32.0-36.0 g/dL Red Cell Distribution Width 13.3 11.8-14.3 % Platelet Count 276 140-450 10^3/uL Mean Platelet Volume 9.4 6.9-10.8 fL Neutrophils (%) (Auto) 62.9 37.0-80.0 % Lymphocytes (%) (Auto) 21.6 10.0-50.0 % Monocytes (%) (Auto) 14.9 H 0.0-12.0 % Eosinophils (%) (Auto) 0.2 0.0-7.0 % Basophils (%) (Auto) 0.4 0.0-2.0 % Neutrophils # (Auto) 4.2 1.6-8.6 10 ^3/uL Lymphocytes # (Auto) 1.4 0.4-5.4 10 ^3/uL Monocytes # (Auto) 1.0 0-1.3 10 ^3/uL Eosinophils # (Auto) 0 0-0.8 10 ^3/uL Basophils # (Auto) 0 0-0.2 10 ^3/uL Nucleated Red Blood Cells 0.1 % Prothrombin Time 11.3 9.3-11.8 sec Prothrombin Time INR 1.07 0.9-1.15 Activated Partial Thromboplast Time 28.9 24.5-34.5 SEC Beta HCG, Quantitative 4.5 H 1.5-4.2 mIU/mL Troponin I High Sensitivity < 3 L </=34 ng/L Lipase 25 12-53 U/L Assessment 10/30/24 explained to patient with her listening- in, on his phone that MRI shows a mass like lesion in the right lower abdomen, possibly related to distal ileum and several lesions (possibly metastatic) in the liver. will proceed with exploratory laparotomy, possible right hemicolectomy and liver biopsy tomorrow, procedure and risks and complications explained in detail, all questions answered. Plan discussed with: Patient, Spouse HERMILO GIRON MD Oct 30, 2024 09:35
--- NOTE | 2024-10-30 10:36 | DVH ---
Chest x-ray Technique: PA and lateral views CLINICAL INDICATION: pre op FINDINGS: Heart size is normal. No infiltrates or effusions. No bony thoracic abnormalities. IMPRESSION: 1. Normal chest x-ray.
[2024-10-30] MEDS: D5W/SOD CHL 0.45%/KCL 20MEQ 1,000 ML IV SCH (12:23)
--- NOTE | 2024-10-30 13:28 | DVHPN2 ---
Progress Note - Dictate Date Seen: Oct 30, 2024 Medical Necessity Reason Pt with a Central, PICC or Fol: No Subjective No new complaints Patient did have some loose bowel movements today Patient is currently NPO Surgical consult appreciated vital signs Vital Sign Date Time Temp Pulse Resp B/P (MAP) Pulse Ox O2 Delivery O2 Flow Rate FiO2 10/30/24 13:21 98.2 78 18 131/83 (99) 96 98.2 10/30/24 08:00 Room Air* 0 21 Total Intake and Output 10/29/24 10/29/24 10/30/24 15:00 23:00 07:00 Intake Total 200 ml 100 ml Balance 200 ml 100 ml medications Current Medications Medications Dose Ordered Sig/Pedro Pablo Route Start Time Stop Time Status Last Admin Dose Admin Metronidazole 100 ml @ 100 mls/hr Q8HR IV 10/29/24 14:00 10/30/24 05:51 100 MLS/HR Ondansetron HCl 4 mg Q4HPRN PRN IV 10/29/24 03:30 Morphine Sulfate 1 mg Q4HP PRN IV 10/29/24 13:30 10/29/24 13:58 1 MG Amino Acids 0 ml @ 0 mls/hr PER PHARMACY IV 10/29/24 18:15 Amino Acids/ Electrolytes/ Dextrose 1,000 ml @ 41 mls/hr DAILY@2200 IV 10/29/24 22:00 10/29/24 22:45 41 MLS/HR Diagnostic Test (Pha) 1 strip Q6HR 10/30/24 00:00 10/30/24 12:21 1 STRIP Insulin Human Regular FOLLOW SLIDING SCALE Q6HR SC 10/30/24 00:00 Dextrose 50 ml UD IV 10/29/24 18:30 Potassium Chloride/Dextrose/ Sod Cl 1,000 ml @ 100 mls/hr Q10H IV 10/30/24 09:45 10/30/24 12:23 100 MLS/HR objective General Appearance: Alert, Oriented X3, Cooperative, No acute distress HEENT: Atraumatic, PERRLA, EOMI, Mucous membrane moist/pink Respiratory: Clear to auscultation, Normal air movement Cardiovascular: Regular rate, Normal S1, Normal S2, No murmurs, no chest wall tenderness Abdominal: Diffuse abdominal tenderness, bowel sounds heard Extremities: No clubbing, No cyanosis, No edema, Normal pulses, No tenderness/swelling Skin: No rashes, No breakdown, No significant lesion Neuro: Normal gait, Normal speech, Strength at 5/5 X4 ext, Normal tone, Sensation intact, Cranial nerves 3-12 NL, Reflexes 2+ Psych/Mental Status: Mental status NL, Mood NL laboratory and microbiology Laboratory Tests 10/30/24 05:48 10/29/24 03:25 Test 10/30/24 05:48 Range/Units Serum Glucose 99 74-106 mg/dL Problems(with codes): (1) RLQ abdominal mass (2) RLQ abdominal pain (3) Abnormal finding on GI tract imaging (4) Multiple metastatic lesions in liver (5) TIA (transient ischemic attack) (6) Small bowel obstruction Prognosis Plan Patient has been seen by surgical consult There was a plan for a possible laparotomy right hemicolectomy and liver biopsy tomorrow Patient is currently on a full liquid diet, NPO after midnight Start IV Clinimix at 42 mL/hour Continue IV antibiotics Tumor markers are pending Plan discussed with: Patient JOSE A SEYMOUR MD Oct 30, 2024 13:28
--- NOTE | 2024-10-30 17:09 | DVH ---
RIGHT Upper Extremity Venous Duplex Clinical History: RUE SWELLING Comparison: None Technique: Duplex Doppler evaluation of the venous system of the RIGHT lower neck and upper extremity including color Doppler and spectral/pulsed waveform analysis was performed. Findings: The internal jugular vein demonstrates appropriate compressibility and waveform variability. The subclavian vein is patent on color Doppler evaluation without intraluminal thrombus and demonstra shanice waveform variability. The visualized portion of the brachiocephalic vein is patent on color Doppler evaluation without intr aluminal thrombus and demonstrates waveform variability. The axillary vein demonstrates appropriate compressibility and waveform variability. The brachial veins demonstrate appropriate compressibility and patency on Doppler evaluation. The basilic vein demonstrates appropriate compressibility and patency on Doppler evaluation. The cephalic vein demonstrates appropriate compressibility and patency on Doppler evaluation. Impression: No venous thrombus identified in the RIGHT upper extremity vessels evaluated above.
--- NOTE | 2024-10-30 22:34 | DVHPN2 ---
Subjective The patient is seen and examined at bedside. No complaint today. Reviewed: Care Plan, H&P, Labs, Medications, Previous Orders, Radiology Changes from previous H/P or p: No Changes Objective Vitals Vital Signs Date Time Temp Pulse Resp B/P (MAP) Pulse Ox O2 Delivery O2 Flow Rate FiO2 10/30/24 17:09 98.0 71 14 166/97 (120) 96 98.0 10/30/24 08:00 Room Air* 0 21 Intake/Output Intake and Output 10/30/24 07:00 Intake Total 300 ml Balance 300 ml Intake Oral 0 ml IV Total 300 ml # Voids 1 General Appearance: Alert, Oriented X3, mild distress HEENT: Atraumatic, PERRLA, EOMI, Mucous membr. moist/pink Neck: Supple Lungs: Clear to auscultation, Normal air movement Cardiovascular: Regular rate, Normal S1, Normal S2, No murmurs, Gallops, Rubs Abdomen: Normal bowel sounds, Soft, No tenderness Neuro: Cranial nerves 3-12 NL Psych/Mental Status: Mental status NL Medications Current Medications Medications Dose Ordered Sig/Pedro Pablo Route Start Time Stop Time Status Last Admin Dose Admin Metronidazole 100 ml @ 100 mls/hr Q8HR IV 10/29/24 14:00 10/30/24 21:59 100 MLS/HR Ondansetron HCl 4 mg Q4HPRN PRN IV 10/29/24 03:30 Morphine Sulfate 1 mg Q4HP PRN IV 10/29/24 13:30 10/29/24 13:58 1 MG Diagnostic Test (Pha) 1 strip Q6HR 10/30/24 00:00 10/30/24 17:54 1 STRIP Insulin Human Regular FOLLOW SLIDING SCALE Q6HR SC 10/30/24 00:00 Dextrose 50 ml UD IV 10/29/24 18:30 Potassium Chloride/Dextrose/ Sod Cl 1,000 ml @ 100 mls/hr Q10H IV 10/30/24 09:45 10/30/24 12:23 100 MLS/HR Laboratory Results Laboratory Tests 10/29/24 03:25 10/30/24 05:48 Chemistry Test 10/30/24 05:48 Albumin 3.7 g/dL (3.2-4.8) Calcium Level 8.8 mg/dL (8.7-10.4) Magnesium Level 2.0 mg/dL (1.6-2.6) Phosphorus Level 2.5 mg/dL (2.4-5.1) Total Protein 6.4 g/dL (5.7-8.2) LFT Test 10/30/24 05:48 Alanine Aminotransferase (ALT) 12 U/L (7-40) Alkaline Phosphatase 90 U/L (46-116) Aspartate Amino Transferase (AST) 15 U/L (13-40) Total Bilirubin 0.4 mg/dL (0.2-1.0) Urinalysis Test 10/29/24 05:43 Urine Test Negative (Negative) Labs and/or images reviewed: Labs reviewed by me Assessment/Plan Assessment/Plan # Small bowel obstruction likely due to ileocecal mass - NPO - IV fluids next and GI consult - surgery consult - Pain medication - Patient does not have any active vomiting, we will consider NG tube once patient starts vomiting Colonoscopy report done recently: 1. SEVERE DIVERTICULOSIS AND NARROWING OF THE LEFT COLON 2. INFLAMED IC VALVE BIOSPIES TAKEN AND OOZING OF BLOOD 3.INTERNAL HEMORRHOIDS 4.RECTAL POLYP # Liver mass - Oval cannonball like hypoattenuating lesions of the liver concerning primarily for metastatic disease. Dominant lesion of the left hepatic lobe, 2.7 cm. 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 # History of transient ischemic attack - Follow-up with PCP on discharge - resume asa and statin once patient is on diet PUD prophylaxis: protonix 40mg DVT prophylaxis: brisk movement. Continuing current management. Appreciate surgery input. NPO past midnight Possible surgery in a.m. Ultrasound right upper arm rule out DVT Plan discussed with: Patient My Orders Orders - ARTEM VILLATORO MD Procedure Category Date Status Time Rt Upper Dvt US 10/30/24 Resulted 13:17 Date of Service: Oct 30, 2024 Billing Provider: ARTEM VILLATORO MD Common Visit Codes: [id number] INP/OBS CARE(HIGH) ARTEM VILLATORO MD Oct 30, 2024 22:34
[2024-10-31] VITALS (9 sets, daily range): BP systolic 132–161; BP diastolic 71–82; PULSE 52–94; RESP 12–19; TEMP 97.4–98.5; O2SAT 95–100
[2024-10-31] MEDS: ceFAZolin 2 GM/D5W50ml 50 ML IV ONE (06:42)
[2024-10-31] MEDS ORDERED: MIDAZOLAM HCL 2MG/2ML 2ml VIAL (1mg/ml) ONE (07:30)
[2024-10-31] MEDS ORDERED: fentaNYL CITRATE 100 MCG/2 ML VL ONE ×2 (07:30→08:29)
[2024-10-31] MEDS ORDERED: HYDROmorphone HCL 2 MG/ML VL/or syr ONE (07:30)
[2024-10-31] MEDS ORDERED: KETAMINE 50mg/ML 10ml Vial 10 ML ONE (07:31)
[2024-10-31] MEDS ORDERED: GLYCOPYRROLATE 0.2 MG/ML 1ML VIAL ONE (07:31)
[2024-10-31] MEDS ORDERED: PROPOFOL 10 MG/ML 20 ML IV ONE (07:31)
[2024-10-31] MEDS ORDERED: LIDOCAINE 2% (LOCAL ANESTH.) PF 5ml SDV ONE (07:31)
[2024-10-31] MEDS ORDERED: ROCURONIUM 10MG/ML 10ML VIAL IV ONE (07:31)
[2024-10-31] MEDS ORDERED: KETOROLAC TROMETH 30 MG/ML 1ML VIAL ONE (07:31)
[2024-10-31] MEDS: LIDOCAINE W/ EPINEPHRINE 1% 20ML VIAL ONE (08:12)
[2024-10-31] MEDS: BUPIVACAINE 0.5% P/F INJ 10 ML VIAL ONE (08:12)
[2024-10-31 08:16] LABS: Hematocrit 39.1 % (36.0-46.0); Hemoglobin 13.5 g/dL (12.2-16.2); Mean Corpuscular Hemoglobin 31.0 pg (28.0-32.0); Mean Corpuscular Volume 90.0 fL (80.0-100.0); Nucleated Red Blood Cells % 0.0 %
[2024-10-31 08:30] LABS: Alanine Aminotransferase 14 U/L (7-40); Alkaline Phosphatase 97 U/L (46-116); Anion Gap 12 (5-15); Calcium 9.1 mg/dL (8.7-10.4); Carbon Dioxide 22 mmol/L (20-31); Chloride 107 mmol/L (98-107); Glucose 97 mg/dL (74-106); Magnesium 1.9 mg/dL (1.6-2.6); Potassium 3.8 mmol/L (3.5-5.1); Sodium 141 mmol/L (136-145); Total Protein 7.0 g/dL (5.7-8.2)
[2024-10-31 08:31] LABS: Albumin 4.0 g/dL (3.2-4.8); Bilirubin, Total 0.3 mg/dL (0.2-1.0)
[2024-10-31 08:32] LABS: BUN/Creatinine Ratio 6.8 (10.0-20.0); Blood Urea Nitrogen < 5 mg/dL (9-23)
[2024-10-31] MEDS ORDERED: SUGAMMADEX 200mg/2ml Vial (100MG/ML) IV ONE (08:50)
[2024-10-31] MEDS ORDERED: ONDANSETRON HCL 4 MG/2 ML VIAL IV PRN ×2 (09:45→10:00)
[2024-10-31] MEDS ORDERED: HYDROmorphone HCL 2 MG/ML VL/or syr IV PRN (09:45)
[2024-10-31] MEDS: ACCU-CHEK COMFORT CURVE STRIP VI ONE (09:59)
--- NOTE | 2024-10-31 09:59 | DVHOP ---
DATE OF SURGERY: 10/31/2024 PREOPERATIVE DIAGNOSIS: Right lower quadrant abdominal mass. 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 SURGEON: Bar Fine MD. OPERATION PERFORMED: Exploratory laparotomy, right hemicolectomy, resection of peritoneal implant, ileoascending colostomy. DESCRIPTION OF PROCEDURE: Under general endotracheal anesthesia, with the patient's skin prepped and draped, a midline incision was made and the abdomen was manually and visually inspected. It contained numerous peritoneal implants visible and palpable on the anterior abdominal wall as well as on the mesentery and mesocolon and the mesenteric and antimesenteric borders of numerous bowel loops. Within the liver, there were palpable lesions in the left lobe as well as the right lobe of the liver. The right colon was densely adherent to the retroperitoneum with a large tumor, which was nearly completely obstructing the ileocecal segment. For this reason, a right hemicolectomy was performed in order to prevent the patient from developing a complete bowel obstruction in the near future. The cecum and ascending colon were mobilized, cross-clamped with a bowel clamp, mesentery divided between clamps and ligated. The distal ilium was similarly controlled with a bowel clamp. The mesentery was divided between clamps and ligated. Subsequently, a bowel clamp was used to prevent spillage of any enteric contents and the distal ileum as well as the cecum and ascending colon were transected. The specimen was removed from the field. A large peritoneal implant was submitted for frozen section histopathology, which is reported as showing malignant neoplasm, deferred for permanent. The patient's distal ilium and ascending colon were then brought to opposition and an anastomosis established between the two segments using a handsewn technique with 3-0 Monocryl and 3-0 Prolene for the inner and outer layer respectively. Mesenteric defect was approximated using 2-0 Monocryl suture. Abdomen was profusely irrigated. Irrigant was aspirated. Hemostasis was meticulously accomplished, found to be complete. A 10 mm Higinio-Holguin drain was inserted to the vicinity but not abutting against the anastomosis. It was exteriorized separately and secured with a 3-0 nylon suture. Following report of an accurate needle and sponge count, the abdomen was closed using #1 double-stranded PDS suture and metallic skin yanick. The patient remained hemodynamically stable throughout the procedure and left the operating room following an accurate needle and sponge count. The family was thoroughly informed in the waiting area. MD SUDHEER Rosales/INGRIS TID: [id number] RECEIPT: [id number]
[2024-10-31] MEDS: PANTOPRAZOLE 40 MG/10 ML VIAL INJ IV SCH (10:00)
[2024-10-31] MEDS: HYDROmorphone HCL 2 MG/ML VL/or syr ONE ×4 (10:16→11:11)
[2024-10-31] MEDS: HYDROmorphone HCL 2 MG/ML VL/or syr IV PRN (10:18)
--- NOTE | 2024-10-31 10:27 | DVH ---
INDICATION: CONFIRM NGT PLACEMENT TECHNIQUE: Frontal view of the chest. COMPARISON: XY CHEST TWO VIEWS ROUTINE on DOS: 10/30/24 FINDINGS: NG tube tip in the stomach. The heart and mediastinal contours are grossly unremarkable. There is no evidence of pleural disease. The lungs are clear. The bony structures of the chest are intact wit hout fracture. IMPRESSION: 1. No evidence of acute disease. NG tube tip in the stomach
--- NOTE | 2024-10-31 10:46 | ECG ---
[facility] Test Date: 2024-10-28 Test Time: 15:17:24 Pat Name: DICK THOMAS Department: ED Room: 0214T A Gender: F Hand Cultivator: momo : 1970 Requested By: EMERGENCY EMERGENCY Order Number: [id number] Reading MD: Mane Aden Measurements Intervals [place] Rate: 75 P: 60 ID: [id number] QRS: 131 QRSD: 82 T: 102 QT: 479 QTc: 536 Interpretive Statements Sinus rhythm Probable left atrial enlargement Right axis deviation Nonspecific T abnrm, anterolateral leads Prolonged QT interval Baseline wander in lead(s) V6 Electronically Signed On 11-02-2024 9:26:13 PDT by Mane Aden Please click the below link to view image of tracing.
--- NOTE | 2024-10-31 10:57 | DVHPN2 ---
Subjective The patient is seen and examined at bedside. status post surgery. Sleepy Reviewed: Care Plan, H&P, Labs, Medications, Previous Orders, Radiology Changes from previous H/P or p: No Changes Objective Vitals Vital Signs Date Time Temp Pulse Resp B/P (MAP) Pulse Ox O2 Delivery O2 Flow Rate FiO2 10/31/24 10:52 61 12 166/88 10/31/24 10:49 100 10/31/24 09:49 97.2 97.2 10/31/24 09:49 Room Air 0 10/31/24 09:49 95 Intake/Output Intake and Output 10/31/24 07:00 Intake Total 2600 ml Balance 2600 ml Intake Oral 1400 ml IV Total 1200 ml # Voids 9 # Bowel Movements 2 General Appearance: Alert, mild distress HEENT: Atraumatic, PERRLA, EOMI, Mucous membr. moist/pink Neck: Supple Lungs: Clear to auscultation, Normal air movement Cardiovascular: Regular rate, Normal S1, Normal S2, No murmurs, Gallops, Rubs Abdomen: Normal bowel sounds, Soft, No tenderness Neuro: Cranial nerves 3-12 NL Psych/Mental Status: Mental status NL Medications Current Medications Medications Dose Ordered Sig/Pedro Pablo Route Start Time Stop Time Status Last Admin Dose Admin Morphine Sulfate 1 mg Q4HP PRN IV 10/29/24 13:30 10/29/24 13:58 1 MG Diagnostic Test (Pha) 1 strip Q6HR 10/30/24 00:00 10/31/24 06:00 1 STRIP Insulin Human Regular FOLLOW SLIDING SCALE Q6HR SC 10/30/24 00:00 Dextrose 50 ml UD IV 10/29/24 18:30 Potassium Chloride/Dextrose/ Sod Cl 1,000 ml @ 120 mls/hr Q8H20M IV 10/31/24 09:45 Cefazolin Sodium/ Dextrose 50 ml @ 50 mls/hr Q8HR IV 10/31/24 14:00 Metronidazole 100 ml @ 100 mls/hr Q8HR IV 10/31/24 14:00 Hydromorphone HCl 1 mg Q3HPRN PRN IV 10/31/24 09:45 Ondansetron HCl 4 mg Q4HPRN PRN IV 10/31/24 09:45 Pantoprazole Sodium 40 mg DAILY IV 10/31/24 10:00 Laboratory Results Laboratory Tests 10/31/24 07:20 Chemistry Test 10/31/24 07:20 Albumin 4.0 g/dL (3.2-4.8) Calcium Level 9.1 mg/dL (8.7-10.4) Magnesium Level 1.9 mg/dL (1.6-2.6) Phosphorus Level 2.4 mg/dL (2.4-5.1) Total Protein 7.0 g/dL (5.7-8.2) LFT Test 10/31/24 07:20 Alanine Aminotransferase (ALT) 14 U/L (7-40) Alkaline Phosphatase 97 U/L (46-116) Aspartate Amino Transferase (AST) 17 U/L (13-40) Total Bilirubin 0.3 mg/dL (0.2-1.0) Urinalysis Test 10/29/24 05:43 Urine Test Negative (Negative) Labs and/or images reviewed: Labs reviewed by me Assessment/Plan Assessment/Plan # Small bowel obstruction likely due to ileocecal mass - NPO - IV fluids next and GI consult - surgery consult - Pain medication - Patient does not have any active vomiting, we will consider NG tube once patient starts vomiting Colonoscopy report done recently: 1. SEVERE DIVERTICULOSIS AND NARROWING OF THE LEFT COLON 2. INFLAMED IC VALVE BIOSPIES TAKEN AND OOZING OF BLOOD 3.INTERNAL HEMORRHOIDS 4.RECTAL POLYP # Liver mass - Oval cannonball like hypoattenuating lesions of the liver concerning primarily for metastatic disease. Dominant lesion of the left hepatic lobe, 2.7 cm. 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 # History of transient ischemic attack - Follow-up with PCP on discharge - resume asa and statin once patient is on diet PUD prophylaxis: protonix 40mg DVT prophylaxis: brisk movement. Continuing current management. Appreciate surgery input. NPO past midnight Possible surgery in a.m. Ultrasound right upper arm rule out DVT 10/31: status post surgery. Will follow up with biopsy. Continue pain medication Continue IVF Restart diet when patient more awake. This medical document was created using an electronic medical record system with [employer] direct computerized dictation system. Although this document has been carefully reviewed, there may still be some phonetic and typographical errors. These areas are purely typographical due to imperfections of the software programs, and do not reflect any compromise in the patient's medical care. Plan discussed with: Patient My Orders Orders - ARTEM VILLATORO MD Procedure Category Date Status Time Rt Upper Dvt US 10/30/24 Resulted 13:17 Npo (Nothing By DIET 10/31/24 Transmitted Mouth) Diet Breakfast Date of Service: Oct 31, 2024 Billing Provider: ARTEM VILLATORO MD Common Visit Codes: [id number] INP/OBS CARE(HIGH) ARTEM VILLATORO MD Oct 31, 2024 10:57
[2024-10-31] MEDS: D5W/SOD CHL 0.45%/KCL 20MEQ 1,000 ML IV SCH (13:02)
--- NOTE | 2024-10-31 14:39 | DVHPN2 ---
Progress Note Date Seen: Oct 31, 2024 Resident Creating Document: IOANA ROCHE RESIDENT Medical Necessity Reason Pt with a Central, PICC or Fol: No Subjective Review of Systems Patient seen and examined at bedside S/p right lower quadrant ileocecal mass resection Minimal NG tube drainage Denies any nausea or vomiting Remains NPO Positive bowel sounds Passed bowel movement this morning Elevated CA 125 Objective vital signs Vital Sign Date Time Temp Pulse Resp B/P (MAP) Pulse Ox O2 Delivery O2 Flow Rate FiO2 10/31/24 13:00 97.4 61 19 135/71 (92) 99 97.4 10/31/24 11:45 Nasal Cannula* 3 32 Total Intake and Output 10/30/24 10/30/24 10/31/24 15:00 23:00 07:00 Intake Total 500 ml 1000 ml 1100 ml Balance 500 ml 1000 ml 1100 ml medications Current Medications Medications Dose Ordered Sig/Pedro Pablo Route Start Time Stop Time Status Last Admin Dose Admin Morphine Sulfate 1 mg Q4HP PRN IV 10/29/24 13:30 10/31/24 12:57 1 MG Diagnostic Test (Pha) 1 strip Q6HR 10/30/24 00:00 10/31/24 12:00 1 STRIP Insulin Human Regular FOLLOW SLIDING SCALE Q6HR SC 10/30/24 00:00 Dextrose 50 ml UD IV 10/29/24 18:30 Potassium Chloride/Dextrose/ Sod Cl 1,000 ml @ 120 mls/hr Q8H20M IV 10/31/24 09:45 10/31/24 13:02 120 MLS/HR Cefazolin Sodium/ Dextrose 50 ml @ 50 mls/hr Q8HR IV 10/31/24 14:00 Metronidazole 100 ml @ 100 mls/hr Q8HR IV 10/31/24 14:00 Hydromorphone HCl 1 mg Q3HPRN PRN IV 10/31/24 09:45 Ondansetron HCl 4 mg Q4HPRN PRN IV 10/31/24 09:45 Pantoprazole Sodium 40 mg DAILY IV 10/31/24 10:00 Examination General Appearance: Cooperative. Well developed. Well nourished. NAD Pulmonary/Respiratory: Equal bilateral air entry Cardiovascular/Chest: Regular rate and rhythm. No murmurs. No JVD. Abdominal Exam: Normal bowel sounds. Soft. normal abdomen, incision noted, clean. Minimal drainage in the BRANDAN drain. Neuro/Mental Status: A&O x4. Coherent. Thoughts/Psych: Normal thought pattern. Appropriate mood and affect. Good judgement and insight Skin Exam: Normal inspection. Normal color. Warm. Dry laboratory and microbiology Laboratory Tests 10/31/24 07:20 Test 10/31/24 07:20 Range/Units Serum Glucose 97 74-106 mg/dL Labs and/or images reviewed: Labs reviewed by me, Image(s) reviewed by me Problem List/Assessment/Plan Problem List/Assessment/Plan Right lower quadrant ileocecal mass Multiple metastatic lesions in the liver? SBO Peritoneal carcinomatosis? Breast mass Ascites Plan: Continue postop care Remains NPO Continue Clinimix Continue antibiotics Elevated CA 125 Outpatient follow up with Oncology recommended Thank you so much for the opportunity to consult on your patient. GI team will follow the patient. In case of any questions or concerns please feel free to reach out. Plan discussed with Dr. Germain Plan discussed with: Patient, Spouse, Other (RN) Dietary Evaluation Review Comments: 1) Continue TPN as needed 2) Advance to 60g CCHO cardiac diet when medically feasible 3) Refer to outpatient RD for weight management 4) Follow-up with gastroenterology and oncology 5) Continue to monitor I&O, labs, and skin integrity Expected Outcomes/Goals: 1) appetite and labs to improve 2) diet to advance 3) GI symptoms to resolve 4) f/u in 3-5 days IOANA ROCHE RESIDENT Oct 31, 2024 14:39
[2024-10-31] MEDS: ceFAZolin 2 GM/D5W50ml 50 ML IV SCH (16:03)
[2024-10-31] MEDS: ACETAMINOPHEN IV 100 ML IV ONE (16:56)
[2024-10-31] MEDS: HYDROMORPHONE HCL 1 MG/ML INJ IV PRN (17:18)
[2024-11-01] VITALS (8 sets, daily range): BP systolic 115–161; BP diastolic 65–86; PULSE 50–101; RESP 15–19; TEMP 97.9–98.7; O2SAT 93–99
[2024-11-01 07:49] LABS: Hematocrit 35.4 % (36.0-46.0); Hemoglobin 12.1 g/dL (12.2-16.2); Mean Corpuscular Hemoglobin 30.5 pg (28.0-32.0); Mean Corpuscular Volume 88.9 fL (80.0-100.0); Nucleated Red Blood Cells % 0.0 %
[2024-11-01 07:55] LABS: Albumin 3.8 g/dL (3.2-4.8); Alkaline Phosphatase 87 U/L (46-116); Anion Gap 11 (5-15); Calcium 8.9 mg/dL (8.7-10.4); Carbon Dioxide 25 mmol/L (20-31); Chloride 104 mmol/L (98-107); Potassium 4.0 mmol/L (3.5-5.1); Sodium 140 mmol/L (136-145); Total Protein 6.5 g/dL (5.7-8.2)
[2024-11-01 07:56] LABS: Alanine Aminotransferase 9 U/L (7-40); BUN/Creatinine Ratio 8.3 (10.0-20.0); Bilirubin, Total 0.2 mg/dL (0.2-1.0); Blood Urea Nitrogen < 5 mg/dL (9-23); Glucose 116 mg/dL (74-106)
--- NOTE | 2024-11-01 09:36 | DVHPN2 ---
Progress Note Date Seen: Nov 01, 2024 Medical Necessity Reason Pt with a Central, PICC or Fol: No Objective vital signs Vital Sign Date Time Temp Pulse Resp B/P (MAP) Pulse Ox O2 Delivery O2 Flow Rate FiO2 11/01/24 08:36 97.9 50 15 130/78 (95) 99 97.9 10/31/24 20:00 Nasal Cannula* 2 28 Total Intake and Output 10/31/24 10/31/24 11/01/24 15:00 23:00 07:00 Intake Total 1100 ml 150 ml Output Total 165 ml 600 ml Balance -165 ml 1100 ml -450 ml medications Current Medications Medications Dose Ordered Sig/Pedro Pablo Route Start Time Stop Time Status Last Admin Dose Admin Morphine Sulfate 1 mg Q4HP PRN IV 10/29/24 13:30 10/31/24 12:57 1 MG Diagnostic Test (Pha) 1 strip Q6HR 10/30/24 00:00 11/01/24 05:11 1 STRIP Insulin Human Regular FOLLOW SLIDING SCALE Q6HR SC 10/30/24 00:00 11/01/24 06:21 2 UNITS Dextrose 50 ml UD IV 10/29/24 18:30 Potassium Chloride/Dextrose/ Sod Cl 1,000 ml @ 120 mls/hr Q8H20M IV 10/31/24 09:45 10/31/24 21:11 120 MLS/HR Cefazolin Sodium/ Dextrose 50 ml @ 50 mls/hr Q8HR IV 10/31/24 14:00 11/01/24 06:11 50 MLS/HR Metronidazole 100 ml @ 100 mls/hr Q8HR IV 10/31/24 14:00 11/01/24 05:06 100 MLS/HR Hydromorphone HCl 1 mg Q3HPRN PRN IV 10/31/24 09:45 Cancel Ondansetron HCl 4 mg Q4HPRN PRN IV 10/31/24 09:45 Pantoprazole Sodium 40 mg DAILY IV 10/31/24 10:00 Hydromorphone HCl 1 mg Q3HPRN PRN IV 10/31/24 16:45 11/01/24 06:15 1 MG laboratory and microbiology Laboratory Tests 11/01/24 06:24 Test 11/01/24 06:24 Range/Units Serum Glucose 116 H 74-106 mg/dL Problem List/Assessment/Plan Problem List/Assessment/Plan 10/29/24 several weeks of abdominal pain mostly in the right lower abdomen, pain radiates to the back, has been accompanied by diarrhea , patient did not notice blood in her stool but over the last 4 weeks she lost over 10 pounds of body weight, she had a hysterectomy and left oophorectomy in the past and tubal ligation, she still has her right ovary. she had a colonoscopy two months ago and was told after the colonoscopy that " everything is normal and that she has some cysts on the liver but they are nothing to worry about.on examination her abdomen is soft, slightly distended and tender to deep palpation in the right lower quadrant, no guarding and no rebound . labs and imaging reviewed, explained to patient that we do not have an accurate diagnosis and that she does not need an emergency operation today. also explained that on the ct scan she seems top have a mass in the right lower abdomen which could be related to the right ovary or the right side of her intestine and that we will obtain an MRI to get a better idea of what we are dealing with. also explained that she will most likely need an operation to solve her current problem. 11/01/24 patient's and parents at bedside, thorough explanation of operative findings and the inability to surgically cure her problem, full disclosure of disseminated nature of her malignancy and probable need for further treatments and interventions discussed in detail. all questions answered. Plan discussed with: Patient, Spouse, Other Dietary Evaluation Review Comments: 1) Continue TPN as needed 2) Advance to 60g CCHO cardiac diet when medically feasible 3) Refer to outpatient RD for weight management 4) Follow-up with gastroenterology and oncology 5) Continue to monitor I&O, labs, and skin integrity Expected Outcomes/Goals: 1) appetite and labs to improve 2) diet to advance 3) GI symptoms to resolve 4) f/u in 3-5 days HERMILO GIRON MD Nov 01, 2024 09:36
--- NOTE | 2024-11-01 10:23 | DVHPN2 ---
Subjective The patient is seen and examined at bedside. status post surgery. Sleepy Reviewed: Care Plan, H&P, Labs, Medications, Previous Orders, Radiology Changes from previous H/P or p: No Changes Objective Vitals Vital Signs Date Time Temp Pulse Resp B/P (MAP) Pulse Ox O2 Delivery O2 Flow Rate FiO2 11/01/24 08:36 97.9 50 15 130/78 (95) 99 97.9 10/31/24 20:00 Nasal Cannula* 2 28 Intake/Output Intake and Output 11/01/24 07:00 Intake Total 1250 ml Output Total 765 ml Balance 485 ml Intake Oral 0 ml IV Total 1250 ml Output Urine Total 550 ml Drainage Total 215 ml General Appearance: Alert, mild distress HEENT: Atraumatic, PERRLA, EOMI, Mucous membr. moist/pink Neck: Supple Lungs: Clear to auscultation, Normal air movement Cardiovascular: Regular rate, Normal S1, Normal S2, No murmurs, Gallops, Rubs Abdomen: Normal bowel sounds, Soft, No tenderness Neuro: Cranial nerves 3-12 NL Psych/Mental Status: Mental status NL Medications Current Medications Medications Dose Ordered Sig/Pedro Pablo Route Start Time Stop Time Status Last Admin Dose Admin Morphine Sulfate 1 mg Q4HP PRN IV 10/29/24 13:30 10/31/24 12:57 1 MG Diagnostic Test (Pha) 1 strip Q6HR 10/30/24 00:00 11/01/24 05:11 1 STRIP Insulin Human Regular FOLLOW SLIDING SCALE Q6HR SC 10/30/24 00:00 11/01/24 06:21 2 UNITS Dextrose 50 ml UD IV 10/29/24 18:30 Potassium Chloride/Dextrose/ Sod Cl 1,000 ml @ 120 mls/hr Q8H20M IV 10/31/24 09:45 10/31/24 21:11 120 MLS/HR Cefazolin Sodium/ Dextrose 50 ml @ 50 mls/hr Q8HR IV 10/31/24 14:00 11/01/24 06:11 50 MLS/HR Metronidazole 100 ml @ 100 mls/hr Q8HR IV 10/31/24 14:00 11/01/24 05:06 100 MLS/HR Hydromorphone HCl 1 mg Q3HPRN PRN IV 10/31/24 09:45 Cancel Ondansetron HCl 4 mg Q4HPRN PRN IV 10/31/24 09:45 Pantoprazole Sodium 40 mg DAILY IV 10/31/24 10:00 Hydromorphone HCl 1 mg Q3HPRN PRN IV 10/31/24 16:45 11/01/24 06:15 1 MG Laboratory Results Laboratory Tests 11/01/24 06:24 Chemistry Test 11/01/24 06:24 Albumin 3.8 g/dL (3.2-4.8) Calcium Level 8.9 mg/dL (8.7-10.4) Total Protein 6.5 g/dL (5.7-8.2) LFT Test 11/01/24 06:24 Alanine Aminotransferase (ALT) 9 U/L (7-40) Alkaline Phosphatase 87 U/L (46-116) Aspartate Amino Transferase (AST) 14 U/L (13-40) Total Bilirubin 0.2 mg/dL (0.2-1.0) Urinalysis Test 10/29/24 05:43 Urine Test Negative (Negative) Labs and/or images reviewed: Labs reviewed by me Assessment/Plan Assessment/Plan # Small bowel obstruction likely due to ileocecal mass status post resection - NPO - IV fluids next and GI consult - surgery consult - Pain medication - Patient does not have any active vomiting, we will consider NG tube once patient starts vomiting Colonoscopy report done recently: 1. SEVERE DIVERTICULOSIS AND NARROWING OF THE LEFT COLON 2. INFLAMED IC VALVE BIOSPIES TAKEN AND OOZING OF BLOOD 3.INTERNAL HEMORRHOIDS 4.RECTAL POLYP # Liver mass - Oval cannonball like hypoattenuating lesions of the liver concerning primarily for metastatic disease. Dominant lesion of the left hepatic lobe, 2.7 cm. 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 # History of transient ischemic attack - Follow-up with PCP on discharge - resume asa and statin once patient is on diet #Elevation of CA 125. PUD prophylaxis: protonix 40mg DVT prophylaxis: brisk movement. Continuing current management. Discuss in length with patient regarding to surgery finding. Discuss about potential cancer with mets. Waiting for biopsy Patient express the disappointed in health care system . She said from February 2024, she has severe right abdominal pain. She was bouncing from doctor office to doctor office, from her PCP, to urologist, to GI specialist without finding anything wrong with her. Her last colonoscopy couple month ago show only 2 polyps. Her one ovary was resected from a long time ago with benign cyst, the remain ovary on her right was left untouched. Her CA 125 elevated. She probably has ovarian cancer that spread to liver, colon, peritoneal and breast. I ask her if she want me to consult heme onc as inpatient, but she said she doesn't want it. Her is working on getting her to [facility]. The patient is crying in shock and despaired. I have tried to comfort her as much as I can. We are waiting for biopsy report. Discharge planning when clear by surgeon. I start her on clinimix for nutrient support. She still NPO. I also will give ativan 1mg IV q6h PRN for anxiety. 10/31: status post surgery. Will follow up with biopsy. Continue pain medication Continue IVF Restart diet when patient more awake. This medical document was created using an electronic medical record system with [employer] direct computerized dictation system. Although this document has been carefully reviewed, there may still be some phonetic and typographical errors. These areas are purely typographical due to imperfections of the software programs, and do not reflect any compromise in the patient's medical care. Plan discussed with: Patient, Other (RN) Date of Service: Nov 01, 2024 Billing Provider: ARTEM VILLATORO MD Common Visit Codes: [id number] INP/OBS CARE(HIGH) ARTEM VILLATORO MD Nov 01, 2024 10:23
[2024-11-01] MEDS ORDERED: PPN PER PHARMACY 0 ML IV SCH (12:45)
[2024-11-01] MEDS: LORazepam 2MG/ML-1ML VIAL IV PRN (13:04)
[2024-11-01] MEDS ORDERED: CLINIMIX PER PHARMACY 0 ML IV SCH (14:30)
[2024-11-01 15:14] LABS: Magnesium 1.7 mg/dL (1.6-2.6)
--- NOTE | 2024-11-01 15:52 | DVHPN2 ---
Progress Note Date Seen: Nov 01, 2024 Resident Creating Document: IOANA ROCHE RESIDENT Medical Necessity Reason Pt with a Central, PICC or Fol: No Subjective Review of Systems Patient seen and examined at bedside 100 cc serosanguineous output noted from right BRANDAN drain NG tube to LIS, 50 cc drained this morning, 250 cc drainage since Running Clinimix Notes abdominal incisional pain 10/26 Objective vital signs Vital Sign Date Time Temp Pulse Resp B/P (MAP) Pulse Ox O2 Delivery O2 Flow Rate FiO2 11/01/24 14:44 86 19 131/76 11/01/24 12:35 98.3 98 98.3 10/31/24 20:00 Nasal Cannula* 2 28 Total Intake and Output 10/31/24 10/31/24 11/01/24 15:00 23:00 07:00 Intake Total 1100 ml 150 ml Output Total 165 ml 600 ml Balance -165 ml 1100 ml -450 ml medications Current Medications Medications Dose Ordered Sig/Pedro Pablo Route Start Time Stop Time Status Last Admin Dose Admin Morphine Sulfate 1 mg Q4HP PRN IV 10/29/24 13:30 10/31/24 12:57 1 MG Diagnostic Test (Pha) 1 strip Q6HR 10/30/24 00:00 11/01/24 05:11 1 STRIP Insulin Human Regular FOLLOW SLIDING SCALE Q6HR SC 10/30/24 00:00 11/01/24 06:21 2 UNITS Dextrose 50 ml UD IV 10/29/24 18:30 Potassium Chloride/Dextrose/ Sod Cl 1,000 ml @ 120 mls/hr Q8H20M IV 10/31/24 09:45 11/01/24 10:45 120 MLS/HR Cefazolin Sodium/ Dextrose 50 ml @ 50 mls/hr Q8HR IV 10/31/24 14:00 11/01/24 06:11 50 MLS/HR Metronidazole 100 ml @ 100 mls/hr Q8HR IV 10/31/24 14:00 11/01/24 14:31 100 MLS/HR Hydromorphone HCl 1 mg Q3HPRN PRN IV 10/31/24 09:45 Cancel Ondansetron HCl 4 mg Q4HPRN PRN IV 10/31/24 09:45 Pantoprazole Sodium 40 mg DAILY IV 10/31/24 10:00 11/01/24 10:00 40 MG Hydromorphone HCl 1 mg Q3HPRN PRN IV 10/31/24 16:45 11/01/24 14:44 1 MG Lorazepam 1 mg Q6HP PRN IV 11/01/24 12:45 11/01/24 13:04 1 MG Amino Acids 0 ml @ 0 mls/hr PER PHARMACY IV 11/01/24 14:30 Examination General Appearance: Cooperative. Well developed. Well nourished. NAD Pulmonary/Respiratory: Equal bilateral air entry Cardiovascular/Chest: Regular rate and rhythm. No murmurs. No JVD. Abdominal Exam: Normal bowel sounds. Soft. normal abdomen, incision noted, clean. Minimal drainage in the BRANDAN drain. Neuro/Mental Status: A&O x4. Coherent. Thoughts/Psych: Normal thought pattern. Appropriate mood and affect. Good judgement and insight Skin Exam: Normal inspection. Normal color. Warm. Dry laboratory and microbiology Laboratory Tests 11/01/24 06:24 Test 11/01/24 06:24 Range/Units Serum Glucose 116 H 74-106 mg/dL Labs and/or images reviewed: Labs reviewed by me, Image(s) reviewed by me Problem List/Assessment/Plan Problem List/Assessment/Plan Right lower quadrant ileocecal mass Multiple metastatic lesions in the liver? SBO Peritoneal carcinomatosis? Breast mass Ascites Plan: Continue postop care Remains NPO Continue Clinimix Continue antibiotics Elevated CA 125 Outpatient follow up with Oncology recommended Thank you so much for the opportunity to consult on your patient. GI team will follow the patient. In case of any questions or concerns please feel free to reach out. Plan discussed with Dr. Geramin Plan discussed with: Patient, Other (RN) Dietary Evaluation Review Comments: 1) Continue TPN as needed 2) Advance to 60g CCHO cardiac diet when medically feasible 3) Refer to outpatient RD for weight management 4) Follow-up with gastroenterology and oncology 5) Continue to monitor I&O, labs, and skin integrity Expected Outcomes/Goals: 1) appetite and labs to improve 2) diet to advance 3) GI symptoms to resolve 4) f/u in 3-5 days IOANA ROCHE RESIDENT Nov 01, 2024 15:52
[2024-11-01] MEDS: D5W/SOD CHL 0.45%/KCL 20MEQ 1,000 ML IV ONE (17:14)
[2024-11-01] MEDS: ACCU-CHEK COMFORT CURVE STRIP VI SCH (18:00)
[2024-11-01] MEDS ORDERED: DEXTROSE (50%) 50ML SYRG IV SCH (18:00)
[2024-11-01] MEDS: InsuLIN REG 1unit/0.01ml Soln (100units/ml) SC SCH (18:00)
[2024-11-01] MEDS: AMINO ACID INFUSION IN D10W 1,000 ML IV SCH (23:25)
[2024-11-02] VITALS (8 sets, daily range): BP systolic 136–144; BP diastolic 79–92; PULSE 83–122; RESP 15–18; TEMP 97.8–99.4; O2SAT 94–98
[2024-11-02 06:31] LABS: Hematocrit 34.3 % (36.0-46.0); Hemoglobin 11.7 g/dL (12.2-16.2); Mean Corpuscular Hemoglobin 30.6 pg (28.0-32.0); Mean Corpuscular Volume 89.6 fL (80.0-100.0); Nucleated Red Blood Cells % 0.0 %
[2024-11-02 06:51] LABS: Albumin 3.5 g/dL (3.2-4.8); Alkaline Phosphatase 81 U/L (46-116); Anion Gap 11 (5-15); Calcium 8.7 mg/dL (8.7-10.4); Carbon Dioxide 27 mmol/L (20-31); Chloride 102 mmol/L (98-107); Magnesium 1.7 mg/dL (1.6-2.6); Sodium 140 mmol/L (136-145); Total Protein 6.2 g/dL (5.7-8.2)
[2024-11-02 06:56] LABS: BUN/Creatinine Ratio 7.5 (10.0-20.0); Blood Urea Nitrogen < 5 mg/dL (9-23); Glucose 108 mg/dL (74-106); Potassium 3.5 mmol/L (3.5-5.1)
[2024-11-02 06:57] LABS: Alanine Aminotransferase < 9 U/L (7-40); Bilirubin, Total 0.3 mg/dL (0.2-1.0)
[2024-11-02 07:16] LABS: Triglycerides 58 mg/dL (< 150)
[2024-11-02] MEDS ORDERED: HYDROMORPHONE HCL 1 MG/ML INJ IM PRN (09:15)
[2024-11-02] MEDS ORDERED: LORazepam 2MG/ML-1ML VIAL IM PRN (09:15)
[2024-11-02] MEDS: HYDROMORPHONE HCL 1 MG/ML INJ IV PRN (09:57)
--- NOTE | 2024-11-02 11:01 | DVHPN2 ---
Subjective The patient is seen and examined at bedside. at bedside. Reviewed: Care Plan, H&P, Labs, Medications, Previous Orders, Radiology Changes from previous H/P or p: No Changes Objective Vitals Vital Signs Date Time Temp Pulse Resp B/P (MAP) Pulse Ox O2 Delivery O2 Flow Rate FiO2 11/02/24 09:57 107 16 137/92 11/02/24 08:30 98.4 95 98.4 11/01/24 20:00 Room Air* 0 21 Intake/Output Intake and Output 11/02/24 07:00 Intake Total 396 ml Output Total 750 ml Balance -354 ml Intake Oral 0 ml IV Total 396 ml Output Urine Total 450 ml Gastric Drainage Total 200 ml Drainage Total 100 ml General Appearance: Alert, mild distress HEENT: Atraumatic, PERRLA, EOMI, Mucous membr. moist/pink Neck: Supple Lungs: Clear to auscultation, Normal air movement Cardiovascular: Regular rate, Normal S1, Normal S2, No murmurs, Gallops, Rubs Abdomen: Normal bowel sounds, Soft, No tenderness Neuro: Cranial nerves 3-12 NL Psych/Mental Status: Mental status NL Medications Current Medications Medications Dose Ordered Sig/Pedro Pablo Route Start Time Stop Time Status Last Admin Dose Admin Morphine Sulfate 1 mg Q4HP PRN IV 10/29/24 13:30 10/31/24 12:57 1 MG Cefazolin Sodium/ Dextrose 50 ml @ 50 mls/hr Q8HR IV 10/31/24 14:00 11/01/24 22:22 50 MLS/HR Metronidazole 100 ml @ 100 mls/hr Q8HR IV 10/31/24 14:00 11/01/24 21:19 100 MLS/HR Hydromorphone HCl 1 mg Q3HPRN PRN IV 10/31/24 09:45 Cancel Ondansetron HCl 4 mg Q4HPRN PRN IV 10/31/24 09:45 Pantoprazole Sodium 40 mg DAILY IV 10/31/24 10:00 11/01/24 10:00 40 MG Amino Acids 0 ml @ 0 mls/hr PER PHARMACY IV 11/01/24 14:30 Diagnostic Test (Pha) 1 strip Q6HR 11/01/24 18:00 11/02/24 05:44 1 STRIP Insulin Human Regular FOLLOW SLIDING SCALE Q6HR SC 11/01/24 18:00 Dextrose 50 ml UD IV 11/01/24 18:00 Amino Acids/ Electrolytes/ Dextrose 1,000 ml @ 41 mls/hr DAILY@2200 IV 11/01/24 22:00 11/01/24 23:25 41 MLS/HR Hydromorphone HCl 1 mg Q3HPRN PRN IV 11/02/24 10:00 11/02/24 09:57 1 MG Lorazepam 1 mg Q6HP PRN IV 11/02/24 10:00 Laboratory Results Laboratory Tests 11/02/24 05:41 Chemistry Test 11/02/24 05:41 Albumin 3.5 g/dL (3.2-4.8) Calcium Level 8.7 mg/dL (8.7-10.4) Magnesium Level 1.7 mg/dL (1.6-2.6) Phosphorus Level 1.9 mg/dL (2.4-5.1) L Total Protein 6.2 g/dL (5.7-8.2) Lipid panel Test 11/02/24 05:41 Triglycerides Level 58 mg/dL (< 150) LFT Test 11/02/24 05:41 Alanine Aminotransferase (ALT) < 9 U/L (7-40) Alkaline Phosphatase 81 U/L (46-116) Aspartate Amino Transferase (AST) 14 U/L (13-40) Total Bilirubin 0.3 mg/dL (0.2-1.0) Urinalysis Test 10/29/24 05:43 Urine Test Negative (Negative) Labs and/or images reviewed: Labs reviewed by me Assessment/Plan Assessment/Plan # Small bowel obstruction likely due to ileocecal mass status post resection - NPO - IV fluids next and GI consult - surgery consult - Pain medication - Patient does not have any active vomiting, we will consider NG tube once patient starts vomiting Colonoscopy report done recently: 1. SEVERE DIVERTICULOSIS AND NARROWING OF THE LEFT COLON 2. INFLAMED IC VALVE BIOSPIES TAKEN AND OOZING OF BLOOD 3.INTERNAL HEMORRHOIDS 4.RECTAL POLYP # Liver mass - Oval cannonball like hypoattenuating lesions of the liver concerning primarily for metastatic disease. Dominant lesion of the left hepatic lobe, 2.7 cm. 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 # History of transient ischemic attack - Follow-up with PCP on discharge - resume asa and statin once patient is on diet #Elevation of CA 125. PUD prophylaxis: protonix 40mg DVT prophylaxis: brisk movement. 10/31: status post surgery. Will follow up with biopsy. Continue pain medication Continue IVF Restart diet when patient more awake. 11/01: Continuing current management. Discuss in length with patient regarding to surgery finding. Discuss about potential cancer with mets. Waiting for biopsy Patient express the disappointed in health care system . She said from February 2024, she has severe right abdominal pain. She was bouncing from doctor office to doctor office, from her PCP, to urologist, to GI specialist without finding anything wrong with her. Her last colonoscopy couple month ago show only 2 polyps. Her one ovary was resected from a long time ago with benign cyst, the remain ovary on her right was left untouched. Her CA 125 elevated. She probably has ovarian cancer that spread to liver, colon, peritoneal and breast. I ask her if she want me to consult heme onc as inpatient, but she said she doesn't want it. Her is working on getting her to [facility]. The patient is crying in shock and despaired. I have tried to comfort her as much as I can. We are waiting for biopsy report. Discharge planning when clear by surgeon. I start her on clinimix for nutrient support. She still NPO. I also will give ativan 1mg IV q6h PRN for anxiety. 11/02: Continuing current management. We will place midline. We will start the patient on Clinimix. Waiting for surgeon to see when the patient can started on diet. Encouraged the patient to be out of bed and ambulate. Patient has been burping a lot today however no flatus or bowel movement that. This medical document was created using an electronic medical record system with [employer] direct computerized dictation system. Although this document has been carefully reviewed, there may still be some phonetic and typographical errors. These areas are purely typographical due to imperfections of the software programs, and do not reflect any compromise in the patient's medical care. Plan discussed with: Patient, Spouse My Orders Orders - ARTEM VILLATORO MD Procedure Category Date Status Time Clinimix Per Pharmacy PHA 11/01/24 In Process 14:30 Clinimix Per Pharmacy ANN 11/01/24 In Process 22:00 Glucose Blood PHA 11/01/24 In Process (Accu-Chek Comfort 18:00 Insulin R (Human) PHA 11/01/24 In Process (Insulin R) 18:00 Dextrose 50% Syringe PHA 11/01/24 In Process 18:00 Amino Acid Infusion PHA 11/01/24 In Process In D10w (Clinimix 4. 22:00 Pt Request For Service PT 11/01/24 Logged 18:49 Complete Blood Count LAB 11/03/24 Verified 05:00 Complete Blood Count LAB 11/04/24 Verified 05:00 Complete Blood Count LAB 11/05/24 Verified 05:00 Complete Blood Count LAB 11/06/24 Verified 05:00 Insert Midline ORDERS 11/02/24 Transmitted 09:12 Hydromorphone Hcl Inj PHA 11/02/24 In Process (Dilaudid Injectio 10:00 Lorazepam 2mg/Ml Inj PHA 11/02/24 In Process (Ativan Inj) 10:00 Date of Service: Nov 02, 2024 Billing Provider: ARTEM VILLATORO MD Common Visit Codes: [id number] INP/OBS CARE(HIGH) ARTEM VILLATORO MD Nov 02, 2024 11:01
[2024-11-02] MEDS: LORazepam 2MG/ML-1ML VIAL IV PRN (11:05)
[2024-11-02] MEDS: POTASSIUM PHOSPHATE 26.4 MEQ in SODIUM CHL 0.9% 100 ML IV ONE (11:30)
--- NOTE | 2024-11-02 12:20 | DVHPN2 ---
Progress Note Date Seen: Nov 02, 2024 Medical Necessity Reason Pt with a Central, PICC or Fol: No Objective vital signs Vital Sign Date Time Temp Pulse Resp B/P (MAP) Pulse Ox O2 Delivery O2 Flow Rate FiO2 11/02/24 10:27 97 20 147/87 11/02/24 08:30 98.4 95 98.4 11/01/24 20:00 Room Air* 0 21 Total Intake and Output 11/01/24 11/01/24 11/02/24 15:00 23:00 07:00 Intake Total 100 ml 296 ml Output Total 50 ml 700 ml Balance 50 ml -404 ml medications Current Medications Medications Dose Ordered Sig/Pedro Pablo Route Start Time Stop Time Status Last Admin Dose Admin Morphine Sulfate 1 mg Q4HP PRN IV 10/29/24 13:30 10/31/24 12:57 1 MG Cefazolin Sodium/ Dextrose 50 ml @ 50 mls/hr Q8HR IV 10/31/24 14:00 11/01/24 22:22 50 MLS/HR Metronidazole 100 ml @ 100 mls/hr Q8HR IV 10/31/24 14:00 11/01/24 21:19 100 MLS/HR Hydromorphone HCl 1 mg Q3HPRN PRN IV 10/31/24 09:45 Cancel Ondansetron HCl 4 mg Q4HPRN PRN IV 10/31/24 09:45 Pantoprazole Sodium 40 mg DAILY IV 10/31/24 10:00 11/02/24 11:20 40 MG Amino Acids 0 ml @ 0 mls/hr PER PHARMACY IV 11/01/24 14:30 Diagnostic Test (Pha) 1 strip Q6HR 11/01/24 18:00 11/02/24 05:44 1 STRIP Insulin Human Regular FOLLOW SLIDING SCALE Q6HR SC 11/01/24 18:00 Dextrose 50 ml UD IV 11/01/24 18:00 Amino Acids/ Electrolytes/ Dextrose 1,000 ml @ 41 mls/hr DAILY@2200 IV 11/01/24 22:00 11/01/24 23:25 41 MLS/HR Hydromorphone HCl 1 mg Q3HPRN PRN IV 11/02/24 10:00 11/02/24 09:57 1 MG Lorazepam 1 mg Q6HP PRN IV 11/02/24 10:00 11/02/24 11:05 1 MG laboratory and microbiology Laboratory Tests 11/02/24 05:41 Test 11/02/24 05:41 Range/Units Serum Glucose 108 H 74-106 mg/dL Problem List/Assessment/Plan Problem List/Assessment/Plan 10/29/24 several weeks of abdominal pain mostly in the right lower abdomen, pain radiates to the back, has been accompanied by diarrhea , patient did not notice blood in her stool but over the last 4 weeks she lost over 10 pounds of body weight, she had a hysterectomy and left oophorectomy in the past and tubal ligation, she still has her right ovary. she had a colonoscopy two months ago and was told after the colonoscopy that " everything is normal and that she has some cysts on the liver but they are nothing to worry about.on examination her abdomen is soft, slightly distended and tender to deep palpation in the right lower quadrant, no guarding and no rebound . labs and imaging reviewed, explained to patient that we do not have an accurate diagnosis and that she does not need an emergency operation today. also explained that on the ct scan she seems top have a mass in the right lower abdomen which could be related to the right ovary or the right side of her intestine and that we will obtain an MRI to get a better idea of what we are dealing with. also explained that she will most likely need an operation to solve her current problem. 11/01/24 patient's and parents at bedside, thorough explanation of operative findings and the inability to surgically cure her problem, full disclosure of disseminated nature of her malignancy and probable need for further treatments and interventions discussed in detail. all questions answered. 11/02/24 NO FLATUS OR BM, ABDOMEN NON DISTENDED APPROPRIATELY TENDER, WOUND CLEAN AND WELL APPROXIMATED, BRANDAN DRAINAGE SEROSANGUINEOUS. AMBULATING. Plan discussed with: Patient, Spouse Dietary Evaluation Review Comments: 1) Continue TPN as needed 2) Advance to 60g CCHO cardiac diet when medically feasible 3) Refer to outpatient RD for weight management 4) Follow-up with gastroenterology and oncology 5) Continue to monitor I&O, labs, and skin integrity Expected Outcomes/Goals: 1) appetite and labs to improve 2) diet to advance 3) GI symptoms to resolve 4) f/u in 3-5 days HERMILO GIRON MD Nov 02, 2024 12:20
--- NOTE | 2024-11-02 15:39 | DVHPN2 ---
Progress Note Date Seen: Nov 02, 2024 Resident Creating Document: IOANA ROCHE RESIDENT Medical Necessity Reason Pt with a Central, PICC or Fol: No Subjective Review of Systems Patient seen and examined at bedside notes abdominal pain denies nausea or vomitting 50cc serosanguineous output in JPD 100cc dark brown NGT output Objective vital signs Vital Sign Date Time Temp Pulse Resp B/P (MAP) Pulse Ox O2 Delivery O2 Flow Rate FiO2 11/02/24 12:54 99.4 85 16 143/92 (109) 96 99.4 11/01/24 20:00 Room Air* 0 21 Total Intake and Output 11/01/24 11/01/24 11/02/24 15:00 23:00 07:00 Intake Total 100 ml 296 ml Output Total 50 ml 700 ml Balance 50 ml -404 ml medications Current Medications Medications Dose Ordered Sig/Pedro Pablo Route Start Time Stop Time Status Last Admin Dose Admin Morphine Sulfate 1 mg Q4HP PRN IV 10/29/24 13:30 10/31/24 12:57 1 MG Cefazolin Sodium/ Dextrose 50 ml @ 50 mls/hr Q8HR IV 10/31/24 14:00 11/01/24 22:22 50 MLS/HR Metronidazole 100 ml @ 100 mls/hr Q8HR IV 10/31/24 14:00 11/01/24 21:19 100 MLS/HR Hydromorphone HCl 1 mg Q3HPRN PRN IV 10/31/24 09:45 Cancel Ondansetron HCl 4 mg Q4HPRN PRN IV 10/31/24 09:45 Pantoprazole Sodium 40 mg DAILY IV 10/31/24 10:00 11/02/24 11:20 40 MG Amino Acids 0 ml @ 0 mls/hr PER PHARMACY IV 11/01/24 14:30 Diagnostic Test (Pha) 1 strip Q6HR 11/01/24 18:00 11/02/24 12:00 1 STRIP Insulin Human Regular FOLLOW SLIDING SCALE Q6HR SC 11/01/24 18:00 11/02/24 12:39 2 UNITS Dextrose 50 ml UD IV 11/01/24 18:00 Amino Acids/ Electrolytes/ Dextrose 1,000 ml @ 41 mls/hr DAILY@2200 IV 11/01/24 22:00 11/01/24 23:25 41 MLS/HR Hydromorphone HCl 1 mg Q3HPRN PRN IV 11/02/24 10:00 11/02/24 09:57 1 MG Lorazepam 1 mg Q6HP PRN IV 11/02/24 10:00 11/02/24 11:05 1 MG Examination General Appearance: Cooperative. Well developed. Well nourished. NAD Pulmonary/Respiratory: Equal bilateral air entry Cardiovascular/Chest: Regular rate and rhythm. No murmurs. No JVD. Abdominal Exam: Normal bowel sounds. Soft. normal abdomen, incision noted, clean. Minimal drainage in the BRANDAN drain. Neuro/Mental Status: A&O x4. Coherent. Thoughts/Psych: Normal thought pattern. Appropriate mood and affect. Good judgement and insight Skin Exam: Normal inspection. Normal color. Warm. Dry laboratory and microbiology Laboratory Tests 11/02/24 05:41 Test 11/02/24 05:41 Range/Units Serum Glucose 108 H 74-106 mg/dL Labs and/or images reviewed: Labs reviewed by me, Image(s) reviewed by me Problem List/Assessment/Plan Problem List/Assessment/Plan Right lower quadrant ileocecal mass Multiple metastatic lesions in the liver? SBO Peritoneal carcinomatosis? Breast mass Ascites Plan: Continue postop care Remains NPO Continue Clinimix Continue antibiotics Elevated CA 125, discussed with patient Outpatient follow up with Oncology recommended PT Thank you so much for the opportunity to consult on your patient. GI team will follow the patient. In case of any questions or concerns please feel free to reach out. Plan discussed with Dr. Germain Plan discussed with: Patient, Spouse, Other (RN) Dietary Evaluation Review Comments: 1) Continue TPN as needed 2) Advance to 60g CCHO cardiac diet when medically feasible 3) Refer to outpatient RD for weight management 4) Follow-up with gastroenterology and oncology 5) Continue to monitor I&O, labs, and skin integrity Expected Outcomes/Goals: 1) appetite and labs to improve 2) diet to advance 3) GI symptoms to resolve 4) f/u in 3-5 days IOANA ROCHE RESIDENT Nov 02, 2024 15:39
[2024-11-03] VITALS (8 sets, daily range): BP systolic 130–158; BP diastolic 89–96; PULSE 89–112; RESP 15–19; TEMP 97.6–99; O2SAT 95–97
[2024-11-03 06:22] LABS: Hematocrit 33.7 % (36.0-46.0); Hemoglobin 11.8 g/dL (12.2-16.2); Mean Corpuscular Hemoglobin 31.2 pg (28.0-32.0); Mean Corpuscular Volume 89.1 fL (80.0-100.0); Nucleated Red Blood Cells % 0.1 %
[2024-11-03 06:34] LABS: Albumin 3.4 g/dL (3.2-4.8); Alkaline Phosphatase 72 U/L (46-116); Anion Gap 9 (5-15); BUN/Creatinine Ratio 7.9 (10.0-20.0); Carbon Dioxide 28 mmol/L (20-31); Chloride 103 mmol/L (98-107); Sodium 140 mmol/L (136-145); Total Protein 6.0 g/dL (5.7-8.2)
[2024-11-03 06:36] LABS: Alanine Aminotransferase < 9 U/L (7-40); Blood Urea Nitrogen 5 mg/dL (9-23); Calcium 8.6 mg/dL (8.7-10.4); Glucose 120 mg/dL (74-106); Potassium 3.3 mmol/L (3.5-5.1)
[2024-11-03 06:37] LABS: Bilirubin, Total 0.3 mg/dL (0.2-1.0); Magnesium 1.5 mg/dL (1.6-2.6)
[2024-11-03] MEDS: MAGNESIUM SULFATE 1GM/100ML 100 ML IV SCH (10:00)
--- NOTE | 2024-11-03 10:15 | DVHPN2 ---
Progress Note Date Seen: Nov 03, 2024 Medical Necessity Reason Pt with a Central, PICC or Fol: No Objective vital signs Vital Sign Date Time Temp Pulse Resp B/P (MAP) Pulse Ox O2 Delivery O2 Flow Rate FiO2 11/03/24 09:00 97.6 102 19 154/91 (112) 96 97.6 11/02/24 20:00 Room Air* 0 21 Total Intake and Output 11/02/24 11/02/24 11/03/24 15:00 23:00 07:00 Intake Total 0 ml Output Total 1000 ml 1205 ml Balance -1000 ml -1205 ml medications Current Medications Medications Dose Ordered Sig/Pedro Pablo Route Start Time Stop Time Status Last Admin Dose Admin Morphine Sulfate 1 mg Q4HP PRN IV 10/29/24 13:30 10/31/24 12:57 1 MG Cefazolin Sodium/ Dextrose 50 ml @ 50 mls/hr Q8HR IV 10/31/24 14:00 11/03/24 05:32 50 MLS/HR Metronidazole 100 ml @ 100 mls/hr Q8HR IV 10/31/24 14:00 11/03/24 05:32 100 MLS/HR Hydromorphone HCl 1 mg Q3HPRN PRN IV 10/31/24 09:45 Cancel Ondansetron HCl 4 mg Q4HPRN PRN IV 10/31/24 09:45 Pantoprazole Sodium 40 mg DAILY IV 10/31/24 10:00 11/03/24 08:37 40 MG Amino Acids 0 ml @ 0 mls/hr PER PHARMACY IV 11/01/24 14:30 Diagnostic Test (Pha) 1 strip Q6HR 11/01/24 18:00 11/03/24 05:41 1 STRIP Insulin Human Regular FOLLOW SLIDING SCALE Q6HR SC 11/01/24 18:00 11/02/24 12:39 2 UNITS Dextrose 50 ml UD IV 11/01/24 18:00 Amino Acids/ Electrolytes/ Dextrose 1,000 ml @ 41 mls/hr DAILY@2200 IV 11/01/24 22:00 11/02/24 23:22 41 MLS/HR Hydromorphone HCl 1 mg Q3HPRN PRN IV 11/02/24 10:00 11/03/24 08:37 1 MG Lorazepam 1 mg Q6HP PRN IV 11/02/24 10:00 11/03/24 01:41 1 MG Magnesium Sulfate/ Dextrose 100 ml @ 100 mls/hr Q1HR IV 11/03/24 10:00 11/03/24 11:59 Potassium Chloride 100 ml @ 50 mls/hr Q2H IV 11/03/24 09:15 11/03/24 13:14 laboratory and microbiology Laboratory Tests 11/03/24 05:14 Test 11/03/24 05:14 Range/Units Serum Glucose 120 H 74-106 mg/dL Problem List/Assessment/Plan Problem List/Assessment/Plan 10/29/24 several weeks of abdominal pain mostly in the right lower abdomen, pain radiates to the back, has been accompanied by diarrhea , patient did not notice blood in her stool but over the last 4 weeks she lost over 10 pounds of body weight, she had a hysterectomy and left oophorectomy in the past and tubal ligation, she still has her right ovary. she had a colonoscopy two months ago and was told after the colonoscopy that " everything is normal and that she has some cysts on the liver but they are nothing to worry about.on examination her abdomen is soft, slightly distended and tender to deep palpation in the right lower quadrant, no guarding and no rebound . labs and imaging reviewed, explained to patient that we do not have an accurate diagnosis and that she does not need an emergency operation today. also explained that on the ct scan she seems top have a mass in the right lower abdomen which could be related to the right ovary or the right side of her intestine and that we will obtain an MRI to get a better idea of what we are dealing with. also explained that she will most likely need an operation to solve her current problem. 11/01/24 patient's and parents at bedside, thorough explanation of operative findings and the inability to surgically cure her problem, full disclosure of disseminated nature of her malignancy and probable need for further treatments and interventions discussed in detail. all questions answered. 11/02/24 NO FLATUS OR BM, ABDOMEN NON DISTENDED APPROPRIATELY TENDER, WOUND CLEAN AND WELL APPROXIMATED, BRANDAN DRAINAGE SEROSANGUINEOUS. AMBULATING. 11/03/24 PATIENT STATES SHE IS EMOTIONALLY WORSE OF THAT SHE WAS YESTERDAY, i ATTEMPTED TO REASSURE HER THAT SHE WILL GET BETTER BUT THAT SHE DOES HAVE A COOK AHEAD. WOUND CLEAN AND WELL APPROXIMATED, DRAINAGE SERO SANGUINEOUS. GOOD INSPIRATORY EFFORT, ABDOMEN APPROPRIATELY TENDER, Plan discussed with: Patient, Spouse Dietary Evaluation Review Comments: 1) Continue TPN as needed 2) Advance to 60g CCHO cardiac diet when medically feasible 3) Refer to outpatient RD for weight management 4) Follow-up with gastroenterology and oncology 5) Continue to monitor I&O, labs, and skin integrity Expected Outcomes/Goals: 1) appetite and labs to improve 2) diet to advance 3) GI symptoms to resolve 4) f/u in 3-5 days HERMILO GIRON MD Nov 03, 2024 10:15
[2024-11-03] MEDS: POTASSIUM CHL 20MEQ/100ML 100 ML IV SCH (11:07)
--- NOTE | 2024-11-03 11:27 | DVHPN2 ---
Subjective The patient is seen and examined at bedside. at bedside. Reviewed: Care Plan, H&P, Labs, Medications, Previous Orders, Radiology Changes from previous H/P or p: No Changes Objective Vitals Vital Signs Date Time Temp Pulse Resp B/P (MAP) Pulse Ox O2 Delivery O2 Flow Rate FiO2 11/03/24 09:00 97.6 102 19 154/91 (112) 96 97.6 11/02/24 20:00 Room Air* 0 21 Intake/Output Intake and Output 11/03/24 07:00 Intake Total 0 ml Output Total 2205 ml Balance -2205 ml Intake Oral 0 ml Output Urine Total 2000 ml Gastric Drainage Total 150 ml Other 55 ml General Appearance: Alert, mild distress HEENT: Atraumatic, PERRLA, EOMI, Mucous membr. moist/pink Neck: Supple Lungs: Clear to auscultation, Normal air movement Cardiovascular: Regular rate, Normal S1, Normal S2, No murmurs, Gallops, Rubs Abdomen: Normal bowel sounds, Soft, No tenderness Neuro: Cranial nerves 3-12 NL Psych/Mental Status: Mental status NL Medications Current Medications Medications Dose Ordered Sig/Pedro Pablo Route Start Time Stop Time Status Last Admin Dose Admin Morphine Sulfate 1 mg Q4HP PRN IV 10/29/24 13:30 10/31/24 12:57 1 MG Cefazolin Sodium/ Dextrose 50 ml @ 50 mls/hr Q8HR IV 10/31/24 14:00 11/03/24 05:32 50 MLS/HR Metronidazole 100 ml @ 100 mls/hr Q8HR IV 10/31/24 14:00 11/03/24 05:32 100 MLS/HR Hydromorphone HCl 1 mg Q3HPRN PRN IV 10/31/24 09:45 Cancel Ondansetron HCl 4 mg Q4HPRN PRN IV 10/31/24 09:45 Pantoprazole Sodium 40 mg DAILY IV 10/31/24 10:00 11/03/24 08:37 40 MG Amino Acids 0 ml @ 0 mls/hr PER PHARMACY IV 11/01/24 14:30 Diagnostic Test (Pha) 1 strip Q6HR 11/01/24 18:00 11/03/24 11:06 1 STRIP Insulin Human Regular FOLLOW SLIDING SCALE Q6HR SC 11/01/24 18:00 11/03/24 11:21 2 UNITS Dextrose 50 ml UD IV 11/01/24 18:00 Amino Acids/ Electrolytes/ Dextrose 1,000 ml @ 41 mls/hr DAILY@2200 IV 11/01/24 22:00 11/02/24 23:22 41 MLS/HR Hydromorphone HCl 1 mg Q3HPRN PRN IV 11/02/24 10:00 11/03/24 08:37 1 MG Lorazepam 1 mg Q6HP PRN IV 11/02/24 10:00 11/03/24 11:00 1 MG Magnesium Sulfate/ Dextrose 100 ml @ 100 mls/hr Q1HR IV 11/03/24 10:00 11/03/24 11:59 Potassium Chloride 100 ml @ 50 mls/hr Q2H IV 11/03/24 09:15 11/03/24 13:14 11/03/24 11:07 50 MLS/HR Laboratory Results Laboratory Tests 11/03/24 05:14 Chemistry Test 11/03/24 05:14 Albumin 3.4 g/dL (3.2-4.8) Calcium Level 8.6 mg/dL (8.7-10.4) L Magnesium Level 1.5 mg/dL (1.6-2.6) L Phosphorus Level 2.6 mg/dL (2.4-5.1) Total Protein 6.0 g/dL (5.7-8.2) LFT Test 11/03/24 05:14 Alanine Aminotransferase (ALT) < 9 U/L (7-40) Alkaline Phosphatase 72 U/L (46-116) Aspartate Amino Transferase (AST) 11 U/L (13-40) L Total Bilirubin 0.3 mg/dL (0.2-1.0) Urinalysis Test 10/29/24 05:43 Urine Test Negative (Negative) Labs and/or images reviewed: Labs reviewed by me Assessment/Plan Assessment/Plan # Small bowel obstruction likely due to ileocecal mass status post resection - NPO - IV fluids next and GI consult - surgery consult - Pain medication - Patient does not have any active vomiting, we will consider NG tube once patient starts vomiting Colonoscopy report done recently: 1. SEVERE DIVERTICULOSIS AND NARROWING OF THE LEFT COLON 2. INFLAMED IC VALVE BIOSPIES TAKEN AND OOZING OF BLOOD 3.INTERNAL HEMORRHOIDS 4.RECTAL POLYP # Liver mass - Oval cannonball like hypoattenuating lesions of the liver concerning primarily for metastatic disease. Dominant lesion of the left hepatic lobe, 2.7 cm. 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 # History of transient ischemic attack - Follow-up with PCP on discharge - resume asa and statin once patient is on diet #Elevation of CA 125. PUD prophylaxis: protonix 40mg DVT prophylaxis: brisk movement. 10/31: status post surgery. Will follow up with biopsy. Continue pain medication Continue IVF Restart diet when patient more awake. 11/01: Continuing current management. Discuss in length with patient regarding to surgery finding. Discuss about potential cancer with mets. Waiting for biopsy Patient express the disappointed in health care system . She said from February 2024, she has severe right abdominal pain. She was bouncing from doctor office to doctor office, from her PCP, to urologist, to GI specialist without finding anything wrong with her. Her last colonoscopy couple month ago show only 2 polyps. Her one ovary was resected from a long time ago with benign cyst, the remain ovary on her right was left untouched. Her CA 125 elevated. She probably has ovarian cancer that spread to liver, colon, peritoneal and breast. I ask her if she want me to consult heme onc as inpatient, but she said she doesn't want it. Her is working on getting her to [facility]. The patient is crying in shock and despaired. I have tried to comfort her as much as I can. We are waiting for biopsy report. Discharge planning when clear by surgeon. I start her on clinimix for nutrient support. She still NPO. I also will give ativan 1mg IV q6h PRN for anxiety. 11/02: Continuing current management. We will place midline. We will start the patient on Clinimix. Waiting for surgeon to see when the patient can started on diet. Encouraged the patient to be out of bed and ambulate. Patient has been burping a lot today however no flatus or bowel movement that. 11/03: Continue current management. Still waiting for midline. Continue clinimix. This medical document was created using an electronic medical record system with [employer] direct computerized dictation system. Although this document has been carefully reviewed, there may still be some phonetic and typographical errors. These areas are purely typographical due to imperfections of the software programs, and do not reflect any compromise in the patient's medical care. Plan discussed with: Patient, Spouse My Orders Orders - ARTEM VILLATORO MD Procedure Category Date Status Time Transfer Orders XFER 11/02/24 Transmitted 12:52 Magnesium Sulfate PHA 11/03/24 In Process 1gm/100ml 10:00 Potassium Chl PHA 11/03/24 In Process 20meq/100ml 09:15 Comprehensive LAB 11/04/24 Verified Metabolic Panel 04:00 Magnesium LAB 11/04/24 Verified 04:00 Phosphorus LAB 11/04/24 Verified 04:00 Clinimix Per Pharmacy [facility] 11/03/24 In Process 22:00 * Wound Consult CONS 11/03/24 Transmitted * Dietary Consult CONS 11/03/24 Transmitted 09:57 Date of Service: Nov 03, 2024 Billing Provider: ARTEM VILLATORO MD Common Visit Codes: [id number] INP/OBS CARE(HIGH) ARTEM VILLATORO MD Nov 03, 2024 11:27
--- NOTE | 2024-11-03 12:17 | DVHPN2 ---
Progress Note Date Seen: Nov 03, 2024 Resident Creating Document: IOANA ROCHE RESIDENT Medical Necessity Reason Pt with a Central, PICC or Fol: No Subjective Review of Systems Patient seen and examined at bedside Noted to have a sad affect Notes some abdominal pain, improved from prior Denies any nausea or vomiting Has not been able to pass a bowel movement or flatus yet 600 cc brownish output in the NG tube 75 cc serosanguineous output in the BRANDAN drain Objective vital signs Vital Sign Date Time Temp Pulse Resp B/P (MAP) Pulse Ox O2 Delivery O2 Flow Rate FiO2 11/03/24 09:00 97.6 102 19 154/91 (112) 96 97.6 11/02/24 20:00 Room Air* 0 21 Total Intake and Output 11/02/24 11/02/24 11/03/24 15:00 23:00 07:00 Intake Total 0 ml Output Total 1000 ml 1205 ml Balance -1000 ml -1205 ml medications Current Medications Medications Dose Ordered Sig/Pedro Pablo Route Start Time Stop Time Status Last Admin Dose Admin Morphine Sulfate 1 mg Q4HP PRN IV 10/29/24 13:30 10/31/24 12:57 1 MG Cefazolin Sodium/ Dextrose 50 ml @ 50 mls/hr Q8HR IV 10/31/24 14:00 11/03/24 05:32 50 MLS/HR Metronidazole 100 ml @ 100 mls/hr Q8HR IV 10/31/24 14:00 11/03/24 05:32 100 MLS/HR Hydromorphone HCl 1 mg Q3HPRN PRN IV 10/31/24 09:45 Cancel Ondansetron HCl 4 mg Q4HPRN PRN IV 10/31/24 09:45 Pantoprazole Sodium 40 mg DAILY IV 10/31/24 10:00 11/03/24 08:37 40 MG Amino Acids 0 ml @ 0 mls/hr PER PHARMACY IV 11/01/24 14:30 Diagnostic Test (Pha) 1 strip Q6HR 11/01/24 18:00 11/03/24 11:06 1 STRIP Insulin Human Regular FOLLOW SLIDING SCALE Q6HR SC 11/01/24 18:00 11/03/24 11:21 2 UNITS Dextrose 50 ml UD IV 11/01/24 18:00 Amino Acids/ Electrolytes/ Dextrose 1,000 ml @ 41 mls/hr DAILY@2200 IV 11/01/24 22:00 11/02/24 23:22 41 MLS/HR Hydromorphone HCl 1 mg Q3HPRN PRN IV 11/02/24 10:00 11/03/24 08:37 1 MG Lorazepam 1 mg Q6HP PRN IV 11/02/24 10:00 11/03/24 11:00 1 MG Potassium Chloride 100 ml @ 50 mls/hr Q2H IV 11/03/24 09:15 11/03/24 13:14 11/03/24 11:07 50 MLS/HR Examination General Appearance: Cooperative. Well developed. Well nourished. NAD Pulmonary/Respiratory: Equal bilateral air entry Cardiovascular/Chest: Regular rate and rhythm. No murmurs. No JVD. Abdominal Exam: Normal bowel sounds. Soft. normal abdomen, incision noted, clean. Minimal drainage in the BRANDAN drain. Neuro/Mental Status: A&O x4. Coherent. Thoughts/Psych: Normal thought pattern. Appropriate mood and affect. Good judgement and insight Skin Exam: Normal inspection. Normal color. Warm. Dry laboratory and microbiology Laboratory Tests 11/03/24 05:14 Test 11/03/24 05:14 Range/Units Serum Glucose 120 H 74-106 mg/dL Labs and/or images reviewed: Labs reviewed by me, Image(s) reviewed by me Problem List/Assessment/Plan Problem List/Assessment/Plan Right lower quadrant ileocecal mass Multiple metastatic lesions in the liver? SBO Peritoneal carcinomatosis? Breast mass Ascites Plan: Continue postop care Remains NPO Continue Clinimix Continue antibiotics Elevated CA 125, discussed with patient Outpatient follow up with Oncology recommended Physical therapy, ambulate q.4 hours. Thank you so much for the opportunity to consult on your patient. GI team will follow the patient. In case of any questions or concerns please feel free to reach out. Plan discussed with Dr. Germain Plan discussed with: Patient, Spouse, Other (RN) Dietary Evaluation Review Comments: 1) Continue TPN as needed 2) Advance to 60g CCHO cardiac diet when medically feasible 3) Refer to outpatient RD for weight management 4) Follow-up with gastroenterology and oncology 5) Continue to monitor I&O, labs, and skin integrity Expected Outcomes/Goals: 1) appetite and labs to improve 2) diet to advance 3) GI symptoms to resolve 4) f/u in 3-5 days IOANA ROCHE RESIDENT Nov 03, 2024 12:17
[2024-11-03] MEDS ORDERED: hydrALAZINE HCL 20 MG/ML VL IV PRN (12:45)
[2024-11-03] MEDS: MAGNESIUM SULFATE 1GM/100ML 100 ML IV ONE ×2 (20:10→21:48)
[2024-11-04] VITALS (8 sets, daily range): BP systolic 132–163; BP diastolic 82–103; PULSE 85–107; RESP 15–18; TEMP 97.6–100.5; O2SAT 95–98
[2024-11-04] MEDS: hydrALAZINE HCL 20 MG/ML VL IV PRN (00:23)
[2024-11-04 06:40] LABS: Hematocrit 35.0 % (36.0-46.0); Hemoglobin 12.1 g/dL (12.2-16.2); Mean Corpuscular Hemoglobin 30.6 pg (28.0-32.0); Mean Corpuscular Volume 88.4 fL (80.0-100.0); Nucleated Red Blood Cells % 0.0 %
[2024-11-04 06:56] LABS: Albumin 3.4 g/dL (3.2-4.8); Alkaline Phosphatase 72 U/L (46-116); Anion Gap 10 (5-15); BUN/Creatinine Ratio 10.0 (10.0-20.0); Carbon Dioxide 26 mmol/L (20-31); Chloride 102 mmol/L (98-107); Magnesium 2.1 mg/dL (1.6-2.6); Sodium 138 mmol/L (136-145); Total Protein 6.0 g/dL (5.7-8.2)
[2024-11-04 06:57] LABS: Alanine Aminotransferase < 9 U/L (7-40); Bilirubin, Total 0.3 mg/dL (0.2-1.0); Blood Urea Nitrogen 6 mg/dL (9-23); Calcium 8.5 mg/dL (8.7-10.4); Glucose 121 mg/dL (74-106); Potassium 3.2 mmol/L (3.5-5.1)
--- NOTE | 2024-11-04 09:19 | DVHPN2 ---
Progress Note Date Seen: Nov 04, 2024 Resident Creating Document: IOANA ROCHE RESIDENT Medical Necessity Reason Pt with a Central, PICC or Fol: No Subjective Review of Systems Patient seen and examined at bedside Notes anxiety Has not passed bowel movement or gas yet 80 cc serosanguineous drainage noted in the BRANDAN drain NG tube canister filled with 800 cc dark output Denies any nausea vomiting Objective vital signs Vital Sign Date Time Temp Pulse Resp B/P (MAP) Pulse Ox O2 Delivery O2 Flow Rate FiO2 11/04/24 08:16 107 15 95 Room Air* 0 21 11/04/24 07:13 139/92 11/04/24 05:00 100.5 100.5 Total Intake and Output 11/03/24 11/03/24 11/04/24 15:00 23:00 07:00 Intake Total 250 ml 0 ml 0 ml Output Total 600 ml 800 ml Balance 250 ml -600 ml -800 ml medications Current Medications Medications Dose Ordered Sig/Pedro Pablo Route Start Time Stop Time Status Last Admin Dose Admin Morphine Sulfate 1 mg Q4HP PRN IV 10/29/24 13:30 10/31/24 12:57 1 MG Cefazolin Sodium/ Dextrose 50 ml @ 50 mls/hr Q8HR IV 10/31/24 14:00 11/04/24 06:14 50 MLS/HR Hydromorphone HCl 1 mg Q3HPRN PRN IV 10/31/24 09:45 Cancel Ondansetron HCl 4 mg Q4HPRN PRN IV 10/31/24 09:45 Pantoprazole Sodium 40 mg DAILY IV 10/31/24 10:00 11/04/24 08:33 40 MG Amino Acids 0 ml @ 0 mls/hr PER PHARMACY IV 11/01/24 14:30 Diagnostic Test (Pha) 1 strip Q6HR 11/01/24 18:00 11/04/24 06:14 1 STRIP Insulin Human Regular FOLLOW SLIDING SCALE Q6HR SC 11/01/24 18:00 11/04/24 06:47 2 UNITS Dextrose 50 ml UD IV 11/01/24 18:00 Amino Acids/ Electrolytes/ Dextrose 1,000 ml @ 41 mls/hr DAILY@2200 IV 11/01/24 22:00 11/03/24 21:58 41 MLS/HR Hydromorphone HCl 1 mg Q3HPRN PRN IV 11/02/24 10:00 11/04/24 06:43 1 MG Lorazepam 1 mg Q6HP PRN IV 11/02/24 10:00 11/04/24 08:33 1 MG Hydralazine HCl 10 mg Q6HP PRN IV 11/03/24 13:15 11/04/24 00:23 10 MG Metronidazole 100 ml @ 100 mls/hr Q8H IV 11/03/24 20:00 11/04/24 03:15 100 MLS/HR Examination General Appearance: Cooperative. Well developed. Well nourished. NAD Pulmonary/Respiratory: Equal bilateral air entry Cardiovascular/Chest: Regular rate and rhythm. No murmurs. No JVD. Abdominal Exam: Normal bowel sounds. Soft. normal abdomen, incision noted, clean. 80 cc serosanguineous drainage in the BRANDAN drain Neuro/Mental Status: A&O x4. Coherent. Thoughts/Psych: Normal thought pattern. Appropriate mood and affect. Good judgement and insight Skin Exam: Normal inspection. Normal color. Warm. Dry laboratory and microbiology Laboratory Tests 11/04/24 04:53 Test 11/04/24 04:53 Range/Units Serum Glucose 121 H 74-106 mg/dL Labs and/or images reviewed: Labs reviewed by me, Image(s) reviewed by me Problem List/Assessment/Plan Problem List/Assessment/Plan Right lower quadrant ileocecal mass Multiple metastatic lesions in the liver? SBO Peritoneal carcinomatosis? Breast mass Ascites Plan: Continue postop care Remains NPO Continue Clinimix Continue antibiotics Elevated CA 125, discussed with patient Outpatient follow up with Oncology recommended Physical therapy, ambulate q.4 hours. Pending biopsy results Thank you so much for the opportunity to consult on your patient. GI team will follow the patient. In case of any questions or concerns please feel free to reach out. Plan discussed with Dr. Germain Plan discussed with: Patient, Spouse, Other (RN) Dietary Evaluation Review Comments: 1) Continue TPN as needed 2) Advance to 60g CCHO cardiac diet when medically feasible 3) Refer to outpatient RD for weight management 4) Follow-up with gastroenterology and oncology 5) Continue to monitor I&O, labs, and skin integrity Expected Outcomes/Goals: 1) appetite and labs to improve 2) diet to advance 3) GI symptoms to resolve 4) f/u in 3-5 days IOANA ROCHE RESIDENT Nov 04, 2024 09:19
[2024-11-04] MEDS: POTASSIUM CHL 20MEQ/100ML 100 ML IV ONE ×2 (10:48→13:54)
--- NOTE | 2024-11-04 11:52 | DVHPN2 ---
Subjective The patient is seen and examined at bedside. at bedside. Patient still NPO. Still complains of abdominal pain. Reviewed: Care Plan, H&P, Labs, Medications, Previous Orders, Radiology Changes from previous H/P or p: No Changes Objective Vitals Vital Signs Date Time Temp Pulse Resp B/P (MAP) Pulse Ox O2 Delivery O2 Flow Rate FiO2 11/04/24 10:47 85 18 159/91 11/04/24 09:00 98.8 96 98.8 11/04/24 08:16 Room Air* 0 21 Intake/Output Intake and Output 11/04/24 07:00 Intake Total 250 ml Output Total 1400 ml Balance -1150 ml Intake Oral 0 ml IV Total 250 ml Output Urine Total 1400 ml General Appearance: Alert, mild distress HEENT: Atraumatic, PERRLA, EOMI, Mucous membr. moist/pink Neck: Supple Lungs: Clear to auscultation, Normal air movement Cardiovascular: Regular rate, Normal S1, Normal S2, No murmurs, Gallops, Rubs Abdomen: Normal bowel sounds, Soft, No tenderness Neuro: Cranial nerves 3-12 NL Psych/Mental Status: Mental status NL Medications Current Medications Medications Dose Ordered Sig/Pedro Pablo Route Start Time Stop Time Status Last Admin Dose Admin Morphine Sulfate 1 mg Q4HP PRN IV 10/29/24 13:30 10/31/24 12:57 1 MG Cefazolin Sodium/ Dextrose 50 ml @ 50 mls/hr Q8HR IV 10/31/24 14:00 11/04/24 06:14 50 MLS/HR Hydromorphone HCl 1 mg Q3HPRN PRN IV 10/31/24 09:45 Cancel Ondansetron HCl 4 mg Q4HPRN PRN IV 10/31/24 09:45 Pantoprazole Sodium 40 mg DAILY IV 10/31/24 10:00 11/04/24 08:33 40 MG Amino Acids 0 ml @ 0 mls/hr PER PHARMACY IV 11/01/24 14:30 Diagnostic Test (Pha) 1 strip Q6HR 11/01/24 18:00 11/04/24 10:48 1 STRIP Insulin Human Regular FOLLOW SLIDING SCALE Q6HR SC 11/01/24 18:00 11/04/24 06:47 2 UNITS Dextrose 50 ml UD IV 11/01/24 18:00 Amino Acids/ Electrolytes/ Dextrose 1,000 ml @ 41 mls/hr DAILY@2200 IV 11/01/24 22:00 11/03/24 21:58 41 MLS/HR Hydromorphone HCl 1 mg Q3HPRN PRN IV 11/02/24 10:00 11/04/24 10:47 1 MG Lorazepam 1 mg Q6HP PRN IV 11/02/24 10:00 11/04/24 08:33 1 MG Hydralazine HCl 10 mg Q6HP PRN IV 11/03/24 13:15 11/04/24 00:23 10 MG Metronidazole 100 ml @ 100 mls/hr Q8H IV 11/03/24 20:00 11/04/24 10:48 100 MLS/HR Laboratory Results Laboratory Tests 11/04/24 04:53 Chemistry Test 11/04/24 04:53 Albumin 3.4 g/dL (3.2-4.8) Calcium Level 8.5 mg/dL (8.7-10.4) L Magnesium Level 2.1 mg/dL (1.6-2.6) Phosphorus Level 2.3 mg/dL (2.4-5.1) L Total Protein 6.0 g/dL (5.7-8.2) LFT Test 11/04/24 04:53 Alanine Aminotransferase (ALT) < 9 U/L (7-40) Alkaline Phosphatase 72 U/L (46-116) Aspartate Amino Transferase (AST) 12 U/L (13-40) L Total Bilirubin 0.3 mg/dL (0.2-1.0) Urinalysis Test 10/29/24 05:43 Urine Test Negative (Negative) Labs and/or images reviewed: Labs reviewed by me Assessment/Plan Assessment/Plan # Small bowel obstruction likely due to ileocecal mass status post resection - NPO - IV fluids next and GI consult - surgery consult - Pain medication - Patient does not have any active vomiting, we will consider NG tube once patient starts vomiting Colonoscopy report done recently: 1. SEVERE DIVERTICULOSIS AND NARROWING OF THE LEFT COLON 2. INFLAMED IC VALVE BIOSPIES TAKEN AND OOZING OF BLOOD 3.INTERNAL HEMORRHOIDS 4.RECTAL POLYP # Liver mass - Oval cannonball like hypoattenuating lesions of the liver concerning primarily for metastatic disease. Dominant lesion of the left hepatic lobe, 2.7 cm. 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 # History of transient ischemic attack - Follow-up with PCP on discharge - resume asa and statin once patient is on diet #Elevation of CA 125. PUD prophylaxis: protonix 40mg DVT prophylaxis: brisk movement. 10/31: status post surgery. Will follow up with biopsy. Continue pain medication Continue IVF Restart diet when patient more awake. 11/01: Continuing current management. Discuss in length with patient regarding to surgery finding. Discuss about potential cancer with mets. Waiting for biopsy Patient express the disappointed in health care system . She said from February 2024, she has severe right abdominal pain. She was bouncing from doctor office to doctor office, from her PCP, to urologist, to GI specialist without finding anything wrong with her. Her last colonoscopy couple month ago show only 2 polyps. Her one ovary was resected from a long time ago with benign cyst, the remain ovary on her right was left untouched. Her CA 125 elevated. She probably has ovarian cancer that spread to liver, colon, peritoneal and breast. I ask her if she want me to consult heme onc as inpatient, but she said she doesn't want it. Her is working on getting her to [facility]. The patient is crying in shock and despaired. I have tried to comfort her as much as I can. We are waiting for biopsy report. Discharge planning when clear by surgeon. I start her on clinimix for nutrient support. She still NPO. I also will give ativan 1mg IV q6h PRN for anxiety. 11/02: Continuing current management. We will place midline. We will start the patient on Clinimix. Waiting for surgeon to see when the patient can started on diet. Encouraged the patient to be out of bed and ambulate. Patient has been burping a lot today however no flatus or bowel movement that. 11/03: Continue current management. Still waiting for midline. Continue clinimix. 11/04: Continue current management. Continue clinimix. This medical document was created using an electronic medical record system with [employer] computerized dictation system. Although this document has been carefully reviewed, there may still be some phonetic and typographical errors. These areas are purely typographical due to imperfections of the software programs, and do not reflect any compromise in the patient's medical care. Plan discussed with: Patient, Spouse My Orders Orders - ARTEM VILLATORO MD Procedure Category Date Status Time Imaging Transfer ORDERS 11/03/24 Transmitted Request 12:41 Hydralazine Injection PHA 11/03/24 In Process (Apresoline Inject 13:15 Date of Service: Nov 04, 2024 Billing Provider: ARTEM VILLATORO MD Common Visit Codes: [id number] INP/OBS CARE(HIGH) ARTEM VILLATORO MD Nov 04, 2024 11:52
--- NOTE | 2024-11-04 14:06 | DVHPN2 ---
Progress Note Date Seen: Nov 04, 2024 Medical Necessity Reason Pt with a Central, PICC or Fol: No Objective vital signs Vital Sign Date Time Temp Pulse Resp B/P (MAP) Pulse Ox O2 Delivery O2 Flow Rate FiO2 11/04/24 11:17 85 18 151/97 11/04/24 09:00 98.8 96 98.8 11/04/24 08:16 Room Air* 0 21 Total Intake and Output 11/03/24 11/03/24 11/04/24 15:00 23:00 07:00 Intake Total 250 ml 0 ml 0 ml Output Total 600 ml 800 ml Balance 250 ml -600 ml -800 ml medications Current Medications Medications Dose Ordered Sig/Pedro Pablo Route Start Time Stop Time Status Last Admin Dose Admin Morphine Sulfate 1 mg Q4HP PRN IV 10/29/24 13:30 10/31/24 12:57 1 MG Cefazolin Sodium/ Dextrose 50 ml @ 50 mls/hr Q8HR IV 10/31/24 14:00 11/04/24 13:54 50 MLS/HR Hydromorphone HCl 1 mg Q3HPRN PRN IV 10/31/24 09:45 Cancel Ondansetron HCl 4 mg Q4HPRN PRN IV 10/31/24 09:45 Pantoprazole Sodium 40 mg DAILY IV 10/31/24 10:00 11/04/24 08:33 40 MG Amino Acids 0 ml @ 0 mls/hr PER PHARMACY IV 11/01/24 14:30 Diagnostic Test (Pha) 1 strip Q6HR 11/01/24 18:00 11/04/24 10:48 1 STRIP Insulin Human Regular FOLLOW SLIDING SCALE Q6HR SC 11/01/24 18:00 11/04/24 06:47 2 UNITS Dextrose 50 ml UD IV 11/01/24 18:00 Amino Acids/ Electrolytes/ Dextrose 1,000 ml @ 41 mls/hr DAILY@2200 IV 11/01/24 22:00 11/03/24 21:58 41 MLS/HR Hydromorphone HCl 1 mg Q3HPRN PRN IV 11/02/24 10:00 11/04/24 10:47 1 MG Lorazepam 1 mg Q6HP PRN IV 11/02/24 10:00 11/04/24 08:33 1 MG Hydralazine HCl 10 mg Q6HP PRN IV 11/03/24 13:15 11/04/24 00:23 10 MG Metronidazole 100 ml @ 100 mls/hr Q8H IV 11/03/24 20:00 11/04/24 10:48 100 MLS/HR laboratory and microbiology Laboratory Tests 11/04/24 04:53 Test 11/04/24 04:53 Range/Units Serum Glucose 121 H 74-106 mg/dL Problem List/Assessment/Plan Problem List/Assessment/Plan 10/29/24 several weeks of abdominal pain mostly in the right lower abdomen, pain radiates to the back, has been accompanied by diarrhea , patient did not notice blood in her stool but over the last 4 weeks she lost over 10 pounds of body weight, she had a hysterectomy and left oophorectomy in the past and tubal ligation, she still has her right ovary. she had a colonoscopy two months ago and was told after the colonoscopy that " everything is normal and that she has some cysts on the liver but they are nothing to worry about.on examination her abdomen is soft, slightly distended and tender to deep palpation in the right lower quadrant, no guarding and no rebound . labs and imaging reviewed, explained to patient that we do not have an accurate diagnosis and that she does not need an emergency operation today. also explained that on the ct scan she seems top have a mass in the right lower abdomen which could be related to the right ovary or the right side of her intestine and that we will obtain an MRI to get a better idea of what we are dealing with. also explained that she will most likely need an operation to solve her current problem. 11/01/24 patient's and parents at bedside, thorough explanation of operative findings and the inability to surgically cure her problem, full disclosure of disseminated nature of her malignancy and probable need for further treatments and interventions discussed in detail. all questions answered. 11/02/24 NO FLATUS OR BM, ABDOMEN NON DISTENDED APPROPRIATELY TENDER, WOUND CLEAN AND WELL APPROXIMATED, BRANDAN DRAINAGE SEROSANGUINEOUS. AMBULATING. 11/03/24 PATIENT STATES SHE IS EMOTIONALLY WORSE OF THAT SHE WAS YESTERDAY, i ATTEMPTED TO REASSURE HER THAT SHE WILL GET BETTER BUT THAT SHE DOES HAVE A COOK AHEAD. WOUND CLEAN AND WELL APPROXIMATED, DRAINAGE SERO SANGUINEOUS. GOOD INSPIRATORY EFFORT, ABDOMEN APPROPRIATELY TENDER, 11/04/24 IS HUNGRY, FEELS "BOWELACTIVITY"BUT HAS NOT PASSED FLATUS, WOUND OK ABDOMEN APPROPRIATELY TENDER, LABS REVIEWED. WILL DC NGT AND ALLOW PO ICE CHIPS(OTHERWISE REMAIN NPO) Plan discussed with: Patient, Spouse Dietary Evaluation Review Comments: 1) Continue TPN as needed 2) Advance to 60g CCHO cardiac diet when medically feasible 3) Refer to outpatient RD for weight management 4) Follow-up with gastroenterology and oncology 5) Continue to monitor I&O, labs, and skin integrity Expected Outcomes/Goals: 1) appetite and labs to improve 2) diet to advance 3) GI symptoms to resolve 4) f/u in 3-5 days HERMILO GIRON MD Nov 04, 2024 14:06
[2024-11-04] MEDS: POTASSIUM CHL 20MEQ/100ML 100 ML IV SCH (16:15)
[2024-11-05] VITALS (8 sets, daily range): BP systolic 124–146; BP diastolic 79–101; PULSE 89–101; RESP 15–18; TEMP 97.8–98.9; O2SAT 95–98
[2024-11-05] MEDS: POTASSIUM PHOSPHATE 22 MEQ in SODIUM CHL 0.9% 100 ML IV ONE (02:13)
[2024-11-05 07:31] LABS: Hematocrit 35.4 % (36.0-46.0); Hemoglobin 12.0 g/dL (12.2-16.2); Mean Corpuscular Hemoglobin 30.6 pg (28.0-32.0); Mean Corpuscular Volume 90.1 fL (80.0-100.0); Nucleated Red Blood Cells % 0.0 %
[2024-11-05 07:44] LABS: Alanine Aminotransferase < 9 U/L (7-40); Albumin 3.5 g/dL (3.2-4.8); Alkaline Phosphatase 70 U/L (46-116); Anion Gap 10 (5-15); BUN/Creatinine Ratio 10.0 (10.0-20.0); Bilirubin, Total 0.4 mg/dL (0.2-1.0); Blood Urea Nitrogen 6 mg/dL (9-23); Calcium 8.6 mg/dL (8.7-10.4); Carbon Dioxide 23 mmol/L (20-31); Chloride 106 mmol/L (98-107); Glucose 110 mg/dL (74-106); Magnesium 2.1 mg/dL (1.6-2.6); Potassium 3.8 mmol/L (3.5-5.1); Sodium 139 mmol/L (136-145); Total Protein 6.0 g/dL (5.7-8.2)
--- NOTE | 2024-11-05 10:13 | DVHPN2 ---
Progress Note Date Seen: Nov 05, 2024 Medical Necessity Reason Pt with a Central, PICC or Fol: No Objective vital signs Vital Sign Date Time Temp Pulse Resp B/P (MAP) Pulse Ox O2 Delivery O2 Flow Rate FiO2 11/05/24 09:40 91 17 124/79 11/05/24 09:00 97.8 95 97.8 11/04/24 20:00 Room Air* 0 21 Total Intake and Output 11/04/24 11/04/24 11/05/24 15:00 23:00 07:00 Intake Total 250 ml 282 ml 50 ml Output Total 750 ml 910 ml Balance 250 ml -468 ml -860 ml medications Current Medications Medications Dose Ordered Sig/Pedro Pablo Route Start Time Stop Time Status Last Admin Dose Admin Morphine Sulfate 1 mg Q4HP PRN IV 10/29/24 13:30 10/31/24 12:57 1 MG Cefazolin Sodium/ Dextrose 50 ml @ 50 mls/hr Q8HR IV 10/31/24 14:00 11/05/24 06:24 50 MLS/HR Hydromorphone HCl 1 mg Q3HPRN PRN IV 10/31/24 09:45 Cancel Ondansetron HCl 4 mg Q4HPRN PRN IV 10/31/24 09:45 Pantoprazole Sodium 40 mg DAILY IV 10/31/24 10:00 11/05/24 09:39 40 MG Amino Acids 0 ml @ 0 mls/hr PER PHARMACY IV 11/01/24 14:30 Diagnostic Test (Pha) 1 strip Q6HR 11/01/24 18:00 11/05/24 06:17 1 STRIP Insulin Human Regular FOLLOW SLIDING SCALE Q6HR SC 11/01/24 18:00 11/05/24 00:10 2 UNITS Dextrose 50 ml UD IV 11/01/24 18:00 Amino Acids/ Electrolytes/ Dextrose 1,000 ml @ 41 mls/hr DAILY@2200 IV 11/01/24 22:00 11/04/24 21:47 41 MLS/HR Hydromorphone HCl 1 mg Q3HPRN PRN IV 11/02/24 10:00 11/05/24 09:40 1 MG Lorazepam 1 mg Q6HP PRN IV 11/02/24 10:00 11/05/24 06:53 1 MG Hydralazine HCl 10 mg Q6HP PRN IV 11/03/24 13:15 11/04/24 16:20 10 MG Metronidazole 100 ml @ 100 mls/hr Q8H IV 11/03/24 20:00 11/05/24 05:06 100 MLS/HR laboratory and microbiology Laboratory Tests 11/05/24 05:39 Test 11/05/24 05:39 Range/Units Serum Glucose 110 H 74-106 mg/dL Problem List/Assessment/Plan Problem List/Assessment/Plan 10/29/24 several weeks of abdominal pain mostly in the right lower abdomen, pain radiates to the back, has been accompanied by diarrhea , patient did not notice blood in her stool but over the last 4 weeks she lost over 10 pounds of body weight, she had a hysterectomy and left oophorectomy in the past and tubal ligation, she still has her right ovary. she had a colonoscopy two months ago and was told after the colonoscopy that " everything is normal and that she has some cysts on the liver but they are nothing to worry about.on examination her abdomen is soft, slightly distended and tender to deep palpation in the right lower quadrant, no guarding and no rebound . labs and imaging reviewed, explained to patient that we do not have an accurate diagnosis and that she does not need an emergency operation today. also explained that on the ct scan she seems top have a mass in the right lower abdomen which could be related to the right ovary or the right side of her intestine and that we will obtain an MRI to get a better idea of what we are dealing with. also explained that she will most likely need an operation to solve her current problem. 11/01/24 patient's and parents at bedside, thorough explanation of operative findings and the inability to surgically cure her problem, full disclosure of disseminated nature of her malignancy and probable need for further treatments and interventions discussed in detail. all questions answered. 11/02/24 NO FLATUS OR BM, ABDOMEN NON DISTENDED APPROPRIATELY TENDER, WOUND CLEAN AND WELL APPROXIMATED, BRANDAN DRAINAGE SEROSANGUINEOUS. AMBULATING. 11/03/24 PATIENT STATES SHE IS EMOTIONALLY WORSE OF THAT SHE WAS YESTERDAY, i ATTEMPTED TO REASSURE HER THAT SHE WILL GET BETTER BUT THAT SHE DOES HAVE A COOK AHEAD. WOUND CLEAN AND WELL APPROXIMATED, DRAINAGE SERO SANGUINEOUS. GOOD INSPIRATORY EFFORT, ABDOMEN APPROPRIATELY TENDER, 11/04/24 IS HUNGRY, FEELS "BOWELACTIVITY"BUT HAS NOT PASSED FLATUS, WOUND OK ABDOMEN APPROPRIATELY TENDER, LABS REVIEWED. WILL DC NGT AND ALLOW PO ICE CHIPS(OTHERWISE REMAIN NPO) 11/05/24 PASSED FLATUS, WOUND OK BRANDAN, DRAINAGE SEROUS AABDOMEN NON DISTENDED. LABS OK, WILL ALLOW CLEAR LIQUIDS. Plan discussed with: Patient, Spouse, Other Dietary Evaluation Review Comments: 1) Continue TPN as needed 2) Advance to 60g CCHO cardiac diet when medically feasible 3) Refer to outpatient RD for weight management 4) Follow-up with gastroenterology and oncology 5) Continue to monitor I&O, labs, and skin integrity Expected Outcomes/Goals: 1) appetite and labs to improve 2) diet to advance 3) GI symptoms to resolve 4) f/u in 3-5 days HERMILO GIRON MD Nov 05, 2024 10:13
--- NOTE | 2024-11-05 18:45 | DVHPN2 ---
Progress Note - Dictate Date Seen: Nov 05, 2024 Medical Necessity Reason Pt with a Central, PICC or Fol: No Subjective No new complaints Patient passed some gas BRANDAN drain serous 50 ml No abdominal pain Surgical f/u appreciated vital signs Vital Sign Date Time Temp Pulse Resp B/P (MAP) Pulse Ox O2 Delivery O2 Flow Rate FiO2 11/05/24 18:31 108 17 143/98 11/05/24 17:00 97.8 97 97.8 11/04/24 20:00 Room Air* 0 21 Total Intake and Output 11/04/24 11/04/24 11/05/24 15:00 23:00 07:00 Intake Total 250 ml 282 ml 50 ml Output Total 750 ml 910 ml Balance 250 ml -468 ml -860 ml medications Current Medications Medications Dose Ordered Sig/Pedro Pablo Route Start Time Stop Time Status Last Admin Dose Admin Morphine Sulfate 1 mg Q4HP PRN IV 10/29/24 13:30 10/31/24 12:57 1 MG Cefazolin Sodium/ Dextrose 50 ml @ 50 mls/hr Q8HR IV 10/31/24 14:00 11/05/24 06:24 50 MLS/HR Hydromorphone HCl 1 mg Q3HPRN PRN IV 10/31/24 09:45 Cancel Ondansetron HCl 4 mg Q4HPRN PRN IV 10/31/24 09:45 Pantoprazole Sodium 40 mg DAILY IV 10/31/24 10:00 11/05/24 09:39 40 MG Amino Acids 0 ml @ 0 mls/hr PER PHARMACY IV 11/01/24 14:30 Diagnostic Test (Pha) 1 strip Q6HR 11/01/24 18:00 11/05/24 18:06 1 STRIP Insulin Human Regular FOLLOW SLIDING SCALE Q6HR SC 11/01/24 18:00 11/05/24 00:10 2 UNITS Dextrose 50 ml UD IV 11/01/24 18:00 Amino Acids/ Electrolytes/ Dextrose 1,000 ml @ 41 mls/hr DAILY@2200 IV 11/01/24 22:00 11/04/24 21:47 41 MLS/HR Hydromorphone HCl 1 mg Q3HPRN PRN IV 11/02/24 10:00 11/05/24 18:31 1 MG Lorazepam 1 mg Q6HP PRN IV 11/02/24 10:00 11/05/24 13:40 1 MG Hydralazine HCl 10 mg Q6HP PRN IV 11/03/24 13:15 11/04/24 16:20 10 MG Metronidazole 100 ml @ 100 mls/hr Q8H IV 11/03/24 20:00 11/05/24 11:22 100 MLS/HR objective General Appearance: Alert, Oriented X3, Cooperative, No acute distress HEENT: Atraumatic, PERRLA, EOMI, Mucous membrane moist/pink Respiratory: Clear to auscultation, Normal air movement Cardiovascular: Regular rate, Normal S1, Normal S2, No murmurs, no chest wall tenderness Abdominal: Diffuse abdominal tenderness, bowel sounds heard Extremities: No clubbing, No cyanosis, No edema, Normal pulses, No tenderness/swelling Skin: No rashes, No breakdown, No significant lesion Neuro: Normal gait, Normal speech, Strength at 5/5 X4 ext, Normal tone, Sensation intact, Cranial nerves 3-12 NL, Reflexes 2+ Psych/Mental Status: Mental status NL, Mood NL laboratory and microbiology Laboratory Tests 11/05/24 05:39 Test 11/05/24 05:39 Range/Units Serum Glucose 110 H 74-106 mg/dL Problems(with codes): (1) Adenocarcinoma of cecum (2) Multiple metastatic lesions in liver (3) Abnormal finding on GI tract imaging (4) RLQ abdominal mass Prognosis Plan Started on clear liquid diet Start physical patient Supportive care IV antibiotics Surgical consult is following Dietary Evaluation Review Comments: 1) Continue TPN as needed 2) Advance to 60g CCHO cardiac diet when medically feasible 3) Refer to outpatient RD for weight management 4) Follow-up with gastroenterology and oncology 5) Continue to monitor I&O, labs, and skin integrity Expected Outcomes/Goals: 1) appetite and labs to improve 2) diet to advance 3) GI symptoms to resolve 4) f/u in 3-5 days Plan discussed with: Other (Dr Paul) JOSE A SEYMOUR MD Nov 05, 2024 18:45
[2024-11-06 05:00] VITALS: BP 133/86; PULSE 83; RESP 17; TEMP 97; O2SAT 97
[2024-11-06 07:28] LABS: Hematocrit 34.5 % (36.0-46.0); Hemoglobin 11.9 g/dL (12.2-16.2); Mean Corpuscular Hemoglobin 30.8 pg (28.0-32.0); Mean Corpuscular Volume 89.3 fL (80.0-100.0); Nucleated Red Blood Cells % 0.1 %
[2024-11-06 07:44] LABS: Albumin 3.6 g/dL (3.2-4.8); Alkaline Phosphatase 76 U/L (46-116); Anion Gap 9 (5-15); BUN/Creatinine Ratio 11.9 (10.0-20.0); Calcium 8.8 mg/dL (8.7-10.4); Carbon Dioxide 25 mmol/L (20-31); Chloride 104 mmol/L (98-107); Glucose 94 mg/dL (74-106); Magnesium 2.0 mg/dL (1.6-2.6); Potassium 3.9 mmol/L (3.5-5.1); Sodium 138 mmol/L (136-145); Total Protein 6.3 g/dL (5.7-8.2)
[2024-11-06 07:45] LABS: Bilirubin, Total 0.4 mg/dL (0.2-1.0)
--- NOTE | 2024-11-06 07:45 | DVHPN2 ---
Subjective The patient is seen and examined at bedside. at bedside. Patient still NPO. Still complains of abdominal pain. Reviewed: Care Plan, H&P, Labs, Medications, Previous Orders, Radiology Changes from previous H/P or p: No Changes Objective Vitals Vital Signs Date Time Temp Pulse Resp B/P (MAP) Pulse Ox O2 Delivery O2 Flow Rate FiO2 11/06/24 05:00 97.0 83 17 133/86 (102) 97 97.0 11/05/24 20:00 Room Air* 0 21 Intake/Output Intake and Output 11/06/24 07:00 Intake Total 1645 ml Output Total 900 ml Balance 745 ml Intake Oral 1245 ml IV Total 400 ml Output Urine Total 850 ml Drainage Total 50 ml General Appearance: Alert, mild distress HEENT: Atraumatic, PERRLA, EOMI, Mucous membr. moist/pink Neck: Supple Lungs: Clear to auscultation, Normal air movement Cardiovascular: Regular rate, Normal S1, Normal S2, No murmurs, Gallops, Rubs Abdomen: Normal bowel sounds, Soft, No tenderness Neuro: Cranial nerves 3-12 NL Psych/Mental Status: Mental status NL Medications Current Medications Medications Dose Ordered Sig/Pedro Pablo Route Start Time Stop Time Status Last Admin Dose Admin Morphine Sulfate 1 mg Q4HP PRN IV 10/29/24 13:30 10/31/24 12:57 1 MG Cefazolin Sodium/ Dextrose 50 ml @ 50 mls/hr Q8HR IV 10/31/24 14:00 11/06/24 06:51 50 MLS/HR Hydromorphone HCl 1 mg Q3HPRN PRN IV 10/31/24 09:45 Cancel Ondansetron HCl 4 mg Q4HPRN PRN IV 10/31/24 09:45 Pantoprazole Sodium 40 mg DAILY IV 10/31/24 10:00 11/05/24 09:39 40 MG Amino Acids 0 ml @ 0 mls/hr PER PHARMACY IV 11/01/24 14:30 Diagnostic Test (Pha) 1 strip Q6HR 11/01/24 18:00 11/06/24 06:14 1 STRIP Insulin Human Regular FOLLOW SLIDING SCALE Q6HR SC 11/01/24 18:00 11/05/24 00:10 2 UNITS Dextrose 50 ml UD IV 11/01/24 18:00 Amino Acids/ Electrolytes/ Dextrose 1,000 ml @ 41 mls/hr DAILY@2200 IV 11/01/24 22:00 11/05/24 22:38 41 MLS/HR Hydromorphone HCl 1 mg Q3HPRN PRN IV 11/02/24 10:00 11/06/24 01:08 1 MG Lorazepam 1 mg Q6HP PRN IV 11/02/24 10:00 11/06/24 05:25 1 MG Hydralazine HCl 10 mg Q6HP PRN IV 11/03/24 13:15 11/04/24 16:20 10 MG Metronidazole 100 ml @ 100 mls/hr Q8H IV 11/03/24 20:00 11/06/24 05:14 100 MLS/HR Laboratory Results Laboratory Tests 11/06/24 05:39 Chemistry Test 11/06/24 05:39 Albumin Pending Calcium Level Pending Magnesium Level Pending Phosphorus Level Pending Total Protein Pending LFT Test 11/06/24 05:39 Alanine Aminotransferase (ALT) Pending Alkaline Phosphatase Pending Aspartate Amino Transferase (AST) Pending Total Bilirubin Pending Urinalysis Test 10/29/24 05:43 Urine Test Negative (Negative) Assessment/Plan Assessment/Plan # Small bowel obstruction likely due to ileocecal mass status post resection - NPO - IV fluids next and GI consult - surgery consult - Pain medication - Patient does not have any active vomiting, we will consider NG tube once patient starts vomiting Colonoscopy report done recently: 1. SEVERE DIVERTICULOSIS AND NARROWING OF THE LEFT COLON 2. INFLAMED IC VALVE BIOSPIES TAKEN AND OOZING OF BLOOD 3.INTERNAL HEMORRHOIDS 4.RECTAL POLYP # Liver mass - Oval cannonball like hypoattenuating lesions of the liver concerning primarily for metastatic disease. Dominant lesion of the left hepatic lobe, 2.7 cm. 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 # History of transient ischemic attack - Follow-up with PCP on discharge - resume asa and statin once patient is on diet #Elevation of CA 125. PUD prophylaxis: protonix 40mg DVT prophylaxis: brisk movement. 10/31: status post surgery. Will follow up with biopsy. Continue pain medication Continue IVF Restart diet when patient more awake. 11/01: Continuing current management. Discuss in length with patient regarding to surgery finding. Discuss about potential cancer with mets. Waiting for biopsy Patient express the disappointed in health care system . She said from February 2024, she has severe right abdominal pain. She was bouncing from doctor office to doctor office, from her PCP, to urologist, to GI specialist without finding anything wrong with her. Her last colonoscopy couple month ago show only 2 polyps. Her one ovary was resected from a long time ago with benign cyst, the remain ovary on her right was left untouched. Her CA 125 elevated. She probably has ovarian cancer that spread to liver, colon, peritoneal and breast. I ask her if she want me to consult heme onc as inpatient, but she said she doesn't want it. Her is working on getting her to [facility]. The patient is crying in shock and despaired. I have tried to comfort her as much as I can. We are waiting for biopsy report. Discharge planning when clear by surgeon. I start her on clinimix for nutrient support. She still NPO. I also will give ativan 1mg IV q6h PRN for anxiety. 11/02: Continuing current management. We will place midline. We will start the patient on Clinimix. Waiting for surgeon to see when the patient can started on diet. Encouraged the patient to be out of bed and ambulate. Patient has been burping a lot today however no flatus or bowel movement that. 11/03: Continue current management. Still waiting for midline. Continue clinimix. 11/04: Continue current management. Continue clinimix. This medical document was created using an electronic medical record system with [employer] direct computerized dictation system. Although this document has been carefully reviewed, there may still be some phonetic and typographical errors. These areas are purely typographical due to imperfections of the software programs, and do not reflect any compromise in the patient's medical care. Plan discussed with: Patient My Orders Orders - ARTEM VILLATORO MD Procedure Category Date Status Time * Wound Consult CONS 11/05/24 Transmitted Comprehensive LAB 11/06/24 In Process Metabolic Panel 05:00 Magnesium LAB 11/06/24 In Process 05:00 Phosphorus LAB 11/06/24 In Process 05:00 Clinimix Per Pharmacy [facility] 11/05/24 In Process 22:00 Date of Service: Nov 05, 2024 Billing Provider: ARTEM VILLATORO MD Common Visit Codes: [id number] INP/OBS CARE(HIGH) ARTEM VILLATORO MD Nov 06, 2024 07:45
[2024-11-06 07:52] LABS: Alanine Aminotransferase < 9 U/L (7-40); Blood Urea Nitrogen 7 mg/dL (9-23)
[2024-11-06 08:48] VITALS: BP 123/78; PULSE 92; RESP 16; TEMP 98; O2SAT 97
--- NOTE | 2024-11-06 10:38 | DVHPN2 ---
Progress Note Date Seen: Nov 06, 2024 Medical Necessity Reason Pt with a Central, PICC or Fol: No Objective vital signs Vital Sign Date Time Temp Pulse Resp B/P (MAP) Pulse Ox O2 Delivery O2 Flow Rate FiO2 11/06/24 10:32 92 16 123/78 11/06/24 08:48 98.0 97 98.0 11/05/24 20:00 Room Air* 0 21 Total Intake and Output 11/05/24 11/05/24 11/06/24 15:00 23:00 07:00 Intake Total 150 ml 600 ml 895 ml Output Total 20 ml 880 ml Balance 130 ml -280 ml 895 ml medications Current Medications Medications Dose Ordered Sig/Pedro Pablo Route Start Time Stop Time Status Last Admin Dose Admin Morphine Sulfate 1 mg Q4HP PRN IV 10/29/24 13:30 Hold 10/31/24 12:57 1 MG Cefazolin Sodium/ Dextrose 50 ml @ 50 mls/hr Q8HR IV 10/31/24 14:00 11/06/24 06:51 50 MLS/HR Hydromorphone HCl 1 mg Q3HPRN PRN IV 10/31/24 09:45 Cancel Ondansetron HCl 4 mg Q4HPRN PRN IV 10/31/24 09:45 Pantoprazole Sodium 40 mg DAILY IV 10/31/24 10:00 11/06/24 10:21 40 MG Amino Acids 0 ml @ 0 mls/hr PER PHARMACY IV 11/01/24 14:30 Diagnostic Test (Pha) 1 strip Q6HR 11/01/24 18:00 11/06/24 06:14 1 STRIP Insulin Human Regular FOLLOW SLIDING SCALE Q6HR SC 11/01/24 18:00 11/05/24 00:10 2 UNITS Dextrose 50 ml UD IV 11/01/24 18:00 Amino Acids/ Electrolytes/ Dextrose 1,000 ml @ 41 mls/hr DAILY@2200 IV 11/01/24 22:00 11/05/24 22:38 41 MLS/HR Hydromorphone HCl 1 mg Q3HPRN PRN IV 11/02/24 10:00 11/06/24 10:32 1 MG Lorazepam 1 mg Q6HP PRN IV 11/02/24 10:00 11/06/24 05:25 1 MG Hydralazine HCl 10 mg Q6HP PRN IV 11/03/24 13:15 11/04/24 16:20 10 MG Metronidazole 100 ml @ 100 mls/hr Q8H IV 11/03/24 20:00 11/06/24 05:14 100 MLS/HR laboratory and microbiology Laboratory Tests 11/06/24 05:39 Test 11/06/24 05:39 Range/Units Serum Glucose 94 74-106 mg/dL Problem List/Assessment/Plan Problem List/Assessment/Plan 10/29/24 several weeks of abdominal pain mostly in the right lower abdomen, pain radiates to the back, has been accompanied by diarrhea , patient did not notice blood in her stool but over the last 4 weeks she lost over 10 pounds of body weight, she had a hysterectomy and left oophorectomy in the past and tubal ligation, she still has her right ovary. she had a colonoscopy two months ago and was told after the colonoscopy that " everything is normal and that she has some cysts on the liver but they are nothing to worry about.on examination her abdomen is soft, slightly distended and tender to deep palpation in the right lower quadrant, no guarding and no rebound . labs and imaging reviewed, explained to patient that we do not have an accurate diagnosis and that she does not need an emergency operation today. also explained that on the ct scan she seems top have a mass in the right lower abdomen which could be related to the right ovary or the right side of her intestine and that we will obtain an MRI to get a better idea of what we are dealing with. also explained that she will most likely need an operation to solve her current problem. 11/01/24 patient's and parents at bedside, thorough explanation of operative findings and the inability to surgically cure her problem, full disclosure of disseminated nature of her malignancy and probable need for further treatments and interventions discussed in detail. all questions answered. 11/02/24 NO FLATUS OR BM, ABDOMEN NON DISTENDED APPROPRIATELY TENDER, WOUND CLEAN AND WELL APPROXIMATED, BRANDAN DRAINAGE SEROSANGUINEOUS. AMBULATING. 11/03/24 PATIENT STATES SHE IS EMOTIONALLY WORSE OF THAT SHE WAS YESTERDAY, i ATTEMPTED TO REASSURE HER THAT SHE WILL GET BETTER BUT THAT SHE DOES HAVE A COOK AHEAD. WOUND CLEAN AND WELL APPROXIMATED, DRAINAGE SERO SANGUINEOUS. GOOD INSPIRATORY EFFORT, ABDOMEN APPROPRIATELY TENDER, 11/04/24 IS HUNGRY, FEELS "BOWELACTIVITY"BUT HAS NOT PASSED FLATUS, WOUND OK ABDOMEN APPROPRIATELY TENDER, LABS REVIEWED. WILL DC NGT AND ALLOW PO ICE CHIPS(OTHERWISE REMAIN NPO) 11/05/24 PASSED FLATUS, WOUND OK BRANDAN, DRAINAGE SEROUS AABDOMEN NON DISTENDED. LABS OK, WILL ALLOW CLEAR LIQUIDS. 11/06/24 HAD A BM, PASSING FLATUS, IS HUNGRY WANTS TO GO HOME,SURGICALLY STABLE, WOUND OK, ABDOMEN APPROPRIATELY TENDER, BRANDAN DRAINAGE CLEAR SEROUS. WILL DC GANESH GUPTA IV, DV TPN, ADVANCE DIET, CLEAR TO DISCHARGE tomorrow Plan discussed with: Patient, Spouse, Other Dietary Evaluation Review Comments: 1) Continue TPN as needed 2) Advance to 60g CCHO cardiac diet when medically feasible 3) Refer to outpatient RD for weight management 4) Follow-up with gastroenterology and oncology 5) Continue to monitor I&O, labs, and skin integrity Expected Outcomes/Goals: 1) appetite and labs to improve 2) diet to advance 3) GI symptoms to resolve 4) f/u in 3-5 days HERMILO GIRON MD Nov 06, 2024 10:38
--- NOTE | 2024-11-06 12:09 | DVHPN2 ---
Subjective The patient is seen and examined at bedside. at bedside. The patient is able to tolerate regular food. She eats about 50% of her food today. No nausea or vomiting. No abdominal pain. Reviewed: Care Plan, H&P, Labs, Medications, Previous Orders, Radiology Changes from previous H/P or p: No Changes Objective Vitals Vital Signs Date Time Temp Pulse Resp B/P (MAP) Pulse Ox O2 Delivery O2 Flow Rate FiO2 11/06/24 10:32 92 16 123/78 11/06/24 08:48 98.0 97 98.0 11/05/24 20:00 Room Air* 0 21 Intake/Output Intake and Output 11/06/24 07:00 Intake Total 1645 ml Output Total 900 ml Balance 745 ml Intake Oral 1245 ml IV Total 400 ml Output Urine Total 850 ml Drainage Total 50 ml General Appearance: Alert, Oriented X3, Cooperative, No acute distress HEENT: Atraumatic, PERRLA, EOMI, Mucous membr. moist/pink Neck: Supple Lungs: Clear to auscultation, Normal air movement Cardiovascular: Regular rate, Normal S1, Normal S2, No murmurs, Gallops, Rubs Abdomen: Normal bowel sounds, Soft, No tenderness Neuro: Cranial nerves 3-12 NL Psych/Mental Status: Mental status NL Medications Current Medications Medications Dose Ordered Sig/Pedro Pablo Route Start Time Stop Time Status Last Admin Dose Admin Morphine Sulfate 1 mg Q4HP PRN IV 10/29/24 13:30 Hold 10/31/24 12:57 1 MG Hydromorphone HCl 1 mg Q3HPRN PRN IV 10/31/24 09:45 Cancel Ondansetron HCl 4 mg Q4HPRN PRN IV 10/31/24 09:45 Pantoprazole Sodium 40 mg DAILY IV 10/31/24 10:00 11/06/24 10:21 40 MG Diagnostic Test (Pha) 1 strip Q6HR 11/01/24 18:00 11/06/24 06:14 1 STRIP Insulin Human Regular FOLLOW SLIDING SCALE Q6HR SC 11/01/24 18:00 11/05/24 00:10 2 UNITS Dextrose 50 ml UD IV 11/01/24 18:00 Hydromorphone HCl 1 mg Q3HPRN PRN IV 11/02/24 10:00 11/06/24 10:32 1 MG Lorazepam 1 mg Q6HP PRN IV 11/02/24 10:00 11/06/24 05:25 1 MG Hydralazine HCl 10 mg Q6HP PRN IV 11/03/24 13:15 11/04/24 16:20 10 MG Laboratory Results Laboratory Tests 11/06/24 05:39 Chemistry Test 11/06/24 05:39 Albumin 3.6 g/dL (3.2-4.8) Calcium Level 8.8 mg/dL (8.7-10.4) Magnesium Level 2.0 mg/dL (1.6-2.6) Phosphorus Level 2.7 mg/dL (2.4-5.1) Total Protein 6.3 g/dL (5.7-8.2) LFT Test 11/06/24 05:39 Alanine Aminotransferase (ALT) < 9 U/L (7-40) Alkaline Phosphatase 76 U/L (46-116) Aspartate Amino Transferase (AST) 19 U/L (13-40) Total Bilirubin 0.4 mg/dL (0.2-1.0) Urinalysis Test 10/29/24 05:43 Urine Test Negative (Negative) Labs and/or images reviewed: Labs reviewed by me Assessment/Plan Assessment/Plan To report to do it' # Small bowel obstruction likely due to ileocecal mass status post resection - NPO - IV fluids next and GI consult - surgery consult - Pain medication - Patient does not have any active vomiting, we will consider NG tube once patient starts vomiting Colonoscopy report done recently: 1. SEVERE DIVERTICULOSIS AND NARROWING OF THE LEFT COLON 2. INFLAMED IC VALVE BIOSPIES TAKEN AND OOZING OF BLOOD 3.INTERNAL HEMORRHOIDS 4.RECTAL POLYP # Liver mass - Oval cannonball like hypoattenuating lesions of the liver concerning primarily for metastatic disease. Dominant lesion of the left hepatic lobe, 2.7 cm. 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 # History of transient ischemic attack - Follow-up with PCP on discharge - resume asa and statin once patient is on diet #Elevation of CA 125. PUD prophylaxis: protonix 40mg DVT prophylaxis: brisk movement. 10/31: status post surgery. Will follow up with biopsy. Continue pain medication Continue IVF Restart diet when patient more awake. 11/01: Continuing current management. Discuss in length with patient regarding to surgery finding. Discuss about potential cancer with mets. Waiting for biopsy Patient express the disappointed in health care system . She said from February 2024, she has severe right abdominal pain. She was bouncing from doctor office to doctor office, from her PCP, to urologist, to GI specialist without finding anything wrong with her. Her last colonoscopy couple month ago show only 2 polyps. Her one ovary was resected from a long time ago with benign cyst, the remain ovary on her right was left untouched. Her CA 125 elevated. She probably has ovarian cancer that spread to liver, colon, peritoneal and breast. I ask her if she want me to consult heme onc as inpatient, but she said she doesn't want it. Her is working on getting her to [facility]. The patient is crying in shock and despaired. I have tried to comfort her as much as I can. We are waiting for biopsy report. Discharge planning when clear by surgeon. I start her on clinimix for nutrient support. She still NPO. I also will give ativan 1mg IV q6h PRN for anxiety. 11/02: Continuing current management. We will place midline. We will start the patient on Clinimix. Waiting for surgeon to see when the patient can started on diet. Encouraged the patient to be out of bed and ambulate. Patient has been burping a lot today however no flatus or bowel movement that. 11/03: Continue current management. Still waiting for midline. Continue clinimix. 11/04: Continue current management. Continue clinimix. 11/05: Continue current management. 11/06: Continuing current management. DC Clinimix per surgeon. Continuing with pain medication. Continuing with food. Encouraged to eat more than 50%. Discharge planning in a.m. when cleared by surgeon. The patient is supposed to follow up with oncologist in [place]. The patient final biopsy report still pending. This medical document was created using an electronic medical record system with [employer] direct computerized dictation system. Although this document has been carefully reviewed, there may still be some phonetic and typographical errors. These areas are purely typographical due to imperfections of the software programs, and do not reflect any compromise in the patient's medical care. Plan discussed with: Patient, Spouse My Orders Orders - ARTEM VILLATORO MD Procedure Category Date Status Time * Wound Consult CONS 11/05/24 Transmitted Clinimix Per Pharmacy [facility] 11/05/24 In Process 22:00 Date of Service: Nov 06, 2024 Billing Provider: ARTEM VILLATORO MD Common Visit Codes: [id number] INP/OBS CARE(HIGH) ARTEM VILLATORO MD Nov 06, 2024 12:09
[2024-11-06 12:50] VITALS: BP 148/96; PULSE 91; RESP 17; TEMP 97.9; O2SAT 97
[2024-11-06 17:00] VITALS: BP 117/74; PULSE 111; RESP 18; TEMP 97.4; O2SAT 97
--- NOTE | 2024-11-06 20:43 | DVHPN2 ---
Progress Note - Dictate Date Seen: Nov 06, 2024 Medical Necessity Reason Pt with a Central, PICC or Fol: No Subjective No new complaints Started soft mechanical diet vital signs Vital Sign Date Time Temp Pulse Resp B/P (MAP) Pulse Ox O2 Delivery O2 Flow Rate FiO2 11/06/24 18:25 94 18 126/86 11/06/24 17:00 97.4 97 97.4 11/06/24 07:45 Room Air* 0 21 Total Intake and Output 11/05/24 11/05/24 11/06/24 15:00 23:00 07:00 Intake Total 150 ml 600 ml 895 ml Output Total 20 ml 880 ml Balance 130 ml -280 ml 895 ml medications Current Medications Medications Dose Ordered Sig/Pedro Pablo Route Start Time Stop Time Status Last Admin Dose Admin Morphine Sulfate 1 mg Q4HP PRN IV 10/29/24 13:30 Hold 10/31/24 12:57 1 MG Hydromorphone HCl 1 mg Q3HPRN PRN IV 10/31/24 09:45 Cancel Ondansetron HCl 4 mg Q4HPRN PRN IV 10/31/24 09:45 Pantoprazole Sodium 40 mg DAILY IV 10/31/24 10:00 11/06/24 10:21 40 MG Hydromorphone HCl 1 mg Q3HPRN PRN IV 11/02/24 10:00 11/06/24 17:55 1 MG Lorazepam 1 mg Q6HP PRN IV 11/02/24 10:00 11/06/24 12:19 1 MG Hydralazine HCl 10 mg Q6HP PRN IV 11/03/24 13:15 11/04/24 16:20 10 MG objective General Appearance: Alert, Oriented X3, Cooperative, No acute distress HEENT: Atraumatic, PERRLA, EOMI, Mucous membrane moist/pink Respiratory: Clear to auscultation, Normal air movement Cardiovascular: Regular rate, Normal S1, Normal S2, No murmurs, no chest wall tenderness Abdominal: Diffuse abdominal tenderness, bowel sounds heard Extremities: No clubbing, No cyanosis, No edema, Normal pulses, No tenderness/swelling Skin: No rashes, No breakdown, No significant lesion Neuro: Normal gait, Normal speech, Strength at 5/5 X4 ext, Normal tone, Sensation intact, Cranial nerves 3-12 NL, Reflexes 2+ Psych/Mental Status: Mental status NL, Mood NL laboratory and microbiology Laboratory Tests 11/06/24 05:39 Test 11/06/24 05:39 Range/Units Serum Glucose 94 74-106 mg/dL Problems(with codes): (1) Multiple metastatic lesions in liver (2) Abnormal finding on GI tract imaging (3) RLQ abdominal mass (4) Small bowel obstruction Prognosis Plan Advance diet as tolerated Physical therapy Discharge planning as per hospitalist Outpatient follow up with oncologist at [facility] Await final pathology results Dietary Evaluation Review Comments: 1) Continue TPN as needed 2) Advance to 60g CCHO cardiac diet when medically feasible 3) Refer to outpatient RD for weight management 4) Follow-up with gastroenterology and oncology 5) Continue to monitor I&O, labs, and skin integrity Expected Outcomes/Goals: 1) appetite and labs to improve 2) diet to advance 3) GI symptoms to resolve 4) f/u in 3-5 days Plan discussed with: Patient, Spouse JOSE A SEYMOUR MD Nov 06, 2024 20:43
[2024-11-06 21:00] VITALS: BP 125/83; PULSE 107; RESP 18; TEMP 98; O2SAT 97
[2024-11-07] VITALS (8 sets, daily range): BP systolic 109–144; BP diastolic 68–97; PULSE 81–99; RESP 17–20; TEMP 98–98.6; O2SAT 96–97
[2024-11-07 06:50] LABS: Hematocrit 32.7 % (36.0-46.0); Hemoglobin 11.5 g/dL (12.2-16.2); Mean Corpuscular Hemoglobin 31.5 pg (28.0-32.0); Mean Corpuscular Volume 89.7 fL (80.0-100.0); Nucleated Red Blood Cells % 0.0 %
[2024-11-07 06:52] LABS: Chloride 105 mmol/L (98-107); Potassium 3.8 mmol/L (3.5-5.1); Sodium 139 mmol/L (136-145)
[2024-11-07 06:53] LABS: Anion Gap 9 (5-15); Carbon Dioxide 25 mmol/L (20-31)
[2024-11-07 06:58] LABS: BUN/Creatinine Ratio 9.5 (10.0-20.0)
[2024-11-07 06:59] LABS: Blood Urea Nitrogen 6 mg/dL (9-23); Calcium 8.7 mg/dL (8.7-10.4); Glucose 111 mg/dL (74-106)
--- NOTE | 2024-11-07 11:13 | DVHPN2 ---
Subjective Abdominal pain controlled with IV painkillers medication/s; had a long discussion with the patient and her regarding discharge planning; the patient was very emotional and started to cry because she was admitted for many days Reviewed: Care Plan, H&P, Labs, Medications, Previous Orders, Radiology, Other (Consultations) Changes from previous H/P or p: No Changes Objective Vitals Vital Signs Date Time Temp Pulse Resp B/P (MAP) Pulse Ox O2 Delivery O2 Flow Rate FiO2 11/07/24 09:00 98.3 81 19 109/68 (82) 96 98.3 11/06/24 20:00 Room Air* 0 21 Intake/Output Intake and Output 11/07/24 06:59 Intake Total 1864 ml Output Total 1050 ml Balance 814 ml Intake Oral 750 ml IV Total 214 ml Tube Feeding 900 ml Output Urine Total 1050 ml # Voids 3 # Bowel Movements 1 Exam Female nursing staff and were electrician powerhouse General Appearance: Alert, Oriented X3, Cooperative, No acute distress, Other (Emotional; trying) HEENT: Atraumatic Lungs: Clear to auscultation, Normal air movement Cardiovascular: Regular rate, Normal S1, Normal S2, No murmurs Abdomen: Normal bowel sounds, Soft, No tenderness, Other (Midline abdominal healing surgical scar with the yanick with no signs of infection; BRANDAN drain with serosanguineous fluid) Extremities: No edema Neuro: Normal speech, Cranial nerves 3-12 NL Skin: Other (Blanchable erythema around surgical wound; left buttock healed rupture blister) Psych/Mental Status: Mental status NL, Other (Emotional; crying) Medications Current Medications Medications Dose Ordered Sig/Pedro Pablo Route Start Time Stop Time Status Last Admin Dose Admin Morphine Sulfate 1 mg Q4HP PRN IV 10/29/24 13:30 Hold 10/31/24 12:57 1 MG Hydromorphone HCl 1 mg Q3HPRN PRN IV 10/31/24 09:45 Cancel Ondansetron HCl 4 mg Q4HPRN PRN IV 10/31/24 09:45 Pantoprazole Sodium 40 mg DAILY IV 10/31/24 10:00 11/06/24 10:21 40 MG Hydromorphone HCl 1 mg Q3HPRN PRN IV 11/02/24 10:00 11/07/24 05:54 1 MG Lorazepam 1 mg Q6HP PRN IV 11/02/24 10:00 11/06/24 20:48 1 MG Hydralazine HCl 10 mg Q6HP PRN IV 11/03/24 13:15 11/04/24 16:20 10 MG Laboratory Results Laboratory Tests 11/07/24 05:50 Chemistry Test 11/07/24 05:50 Calcium Level 8.7 mg/dL (8.7-10.4) Urinalysis Test 10/29/24 05:43 Urine Test Negative (Negative) Labs and/or images reviewed: Labs reviewed by me, Image(s) reviewed by me Assessment/Plan Assessment/Plan Covering: Abdominal pain due to metastatic well-differentiated neuroendocrine tumor Right lower quadrant ileocecal mass; well-differentiated neuroendocrine tumor G1 Metastatic well-differentiated neuroendocrine tumor; to liver and peritoneum Suspected Multiple metastatic lesions in the liver? Proximal small-bowel obstruction due to ileocecal mass s/p exploratory laparotomy, right hemicolectomy, resection of peritoneal implant, ileoascending colostomy on October 31, 2024; passing gas and stool Breast mass; to be investigated as outpatient Ascites due to peritoneal metastasis Suspected blood loss anemia TRISTA; most likely vasomotor nephropathy; resolved Sepsis with leukocytosis due to abdominal infection in the setting of proximal small bowel obstruction; finished IV antibiotics Allergic dermatitis with itching Emotional distress; no suicide ideation/plan Healed left buttock ruptured blister Obesity Switched IV pain management to oral pain management Started oral Benadryl as needed for itching Counseled the patient on the importance of adopting healthy lifestyle with diet and exercise in order to lose weight Avoid nephrotoxic agents Needs to follow up with Oncology as outpatient Declined psychiatry evaluation GI and surgery are following No symptoms/signs of active bleeding Continue monitoring To be discharge tomorrow if pain remains controlled with oral painkillers Goals of care discussed with the patient and her for 20 minutes; full code Late Entry. This medical document was created using an electronic medical record system with computerized dictation system. Although this document has been carefully reviewed, there might still be some phonetic and typographical errors. These areas are purely typographical due to imperfections of the software programs, and do not reflect any compromise in the patient's medical care. Plan discussed with: Patient, Spouse, Other (Nurse) Date of Service: Nov 07, 2024 Billing Provider: MOISÉS OCAMPO MD Common Visit Codes: [id number] INP/OBS CARE(HIGH) Secondary Visit Codes: [id number] CARE PLAN 30 MINUTES (20 minutes) MOISÉS OCAMPO MD Nov 07, 2024 11:13
--- NOTE | 2024-11-07 12:54 | DVHPN2 ---
Subjective Date Seen: Nov 07, 2024 Post op day Post op day: 7 Patient reports: No new complaints Nursing reports: No new complaints General: Normal HNT: Normal Cardiovascular: Normal Respiratory: Normal Gastrointestinal: Normal Genitourinary: Normal Musculoskeletal: Normal Neurological: Normal Objective Vitals Vital Sign Date Time Temp Pulse Resp B/P (MAP) Pulse Ox O2 Delivery O2 Flow Rate FiO2 11/07/24 09:00 98.3 81 19 109/68 (82) 96 98.3 11/07/24 08:00 Room Air* 0 21 Total Intake and Output 11/06/24 11/06/24 11/07/24 14:59 22:59 06:59 Intake Total 214 ml 750 ml 900 ml Output Total 1050 ml Balance 214 ml -300 ml 900 ml Medications Current Medications Medications Dose Ordered Sig/Pedro Pablo Route Start Time Stop Time Status Last Admin Dose Admin Morphine Sulfate 1 mg Q4HP PRN IV 10/29/24 13:30 Hold 10/31/24 12:57 1 MG Hydromorphone HCl 1 mg Q3HPRN PRN IV 10/31/24 09:45 Cancel Ondansetron HCl 4 mg Q4HPRN PRN IV 10/31/24 09:45 Pantoprazole Sodium 40 mg DAILY IV 10/31/24 10:00 11/06/24 10:21 40 MG Hydromorphone HCl 1 mg Q3HPRN PRN IV 11/02/24 10:00 11/07/24 05:54 1 MG Lorazepam 1 mg Q6HP PRN IV 11/02/24 10:00 11/06/24 20:48 1 MG Hydralazine HCl 10 mg Q6HP PRN IV 11/03/24 13:15 11/04/24 16:20 10 MG General: Normal, Well developed Head/Eyes: Normal ENT: Normal Neck: Normal Lungs: Normal Cardiovascular: Normal Abdominal: Normal, Soft Musculoskeletal: Normal Skin: Normal, Normal inspection, Normal color, Warm Labs and Microbiology Laboratory Tests 11/07/24 05:50 Test 11/07/24 05:50 Range/Units Serum Glucose 111 H 74-106 mg/dL Ass/Plan Labs and/or images reviewed: Labs reviewed by me Problem List 10/29/24 several weeks of abdominal pain mostly in the right lower abdomen, pain radiates to the back, has been accompanied by diarrhea , patient did not notice blood in her stool but over the last 4 weeks she lost over 10 pounds of body weight, she had a hysterectomy and left oophorectomy in the past and tubal ligation, she still has her right ovary. she had a colonoscopy two months ago and was told after the colonoscopy that " everything is normal and that she has some cysts on the liver but they are nothing to worry about.on examination her abdomen is soft, slightly distended and tender to deep palpation in the right lower quadrant, no guarding and no rebound . labs and imaging reviewed, explained to patient that we do not have an accurate diagnosis and that she does not need an emergency operation today. also explained that on the ct scan she seems top have a mass in the right lower abdomen which could be related to the right ovary or the right side of her intestine and that we will obtain an MRI to get a better idea of what we are dealing with. also explained that she will most likely need an operation to solve her current problem. 11/01/24 patient's and parents at bedside, thorough explanation of operative findings and the inability to surgically cure her problem, full disclosure of disseminated nature of her malignancy and probable need for further treatments and interventions discussed in detail. all questions answered. 11/02/24 NO FLATUS OR BM, ABDOMEN NON DISTENDED APPROPRIATELY TENDER, WOUND CLEAN AND WELL APPROXIMATED, BRANDAN DRAINAGE SEROSANGUINEOUS. AMBULATING. 11/03/24 PATIENT STATES SHE IS EMOTIONALLY WORSE OF THAT SHE WAS YESTERDAY, i ATTEMPTED TO REASSURE HER THAT SHE WILL GET BETTER BUT THAT SHE DOES HAVE A COOK AHEAD. WOUND CLEAN AND WELL APPROXIMATED, DRAINAGE SERO SANGUINEOUS. GOOD INSPIRATORY EFFORT, ABDOMEN APPROPRIATELY TENDER, 11/04/24 IS HUNGRY, FEELS "BOWELACTIVITY"BUT HAS NOT PASSED FLATUS, WOUND OK ABDOMEN APPROPRIATELY TENDER, LABS REVIEWED. WILL DC NGT AND ALLOW PO ICE CHIPS(OTHERWISE REMAIN NPO) 11/05/24 PASSED FLATUS, WOUND OK BRANDAN, DRAINAGE SEROUS AABDOMEN NON DISTENDED. LABS OK, WILL ALLOW CLEAR LIQUIDS. 11/06/24 HAD A BM, PASSING FLATUS, IS HUNGRY WANTS TO GO HOME,SURGICALLY STABLE, WOUND OK, ABDOMEN APPROPRIATELY TENDER, BRANDAN DRAINAGE CLEAR SEROUS. WILL DC GUPTA, DC IV, DV TPN, ADVANCE DIET, CLEAR TO DISCHARGE tomorrow Assessment/Plan s/p Exploratory laparotomy, right hemicolectomy, resection of peritoneal implant, ileoascending colostomy. POD#7 -Reports feeling well and ready for discharge following exploratory laparotomy with colon resection. patient states i no longer want to be here it is depressing , to many IV sticks , I only want pill medications - Reports having three bowel movements yesterday and is passing flatus. - bowel movement today , passing gas - Denies any nausea or vomiting and is tolerating a diet. - Requests to discontinue intravenous medications and transition to oral pain medication for management at home. Objective: Abdomen is soft, non-distended, and appropriately tender upon examination. The surgical wound is clean, dry, and intact. Ambulating independently without assistance. - Investigations with results: A Higinio-Holguin (BRANDAN) with serous fluid output. Plan: Per surgery ok to discharge - Education was provided regarding showering wound can get wet , do not submerge -please send home with Tylenol #3 -Patient to follow up in surgery clinic in 1 week Thursday. - Please educate patient on emptying BRANDAN drain daily (record output volume) Plan discussed with patient, Dr. Fine Visit Coding Surgery Date of Service if different f: Nov 07, 2024 Billing Provider: HERMILO FINE MD Surgery Visit Codes: [id number] INP/OBS CARE(HIGH) [employer] SALES REPRESENTATIVE Nov 07, 2024 12:54
--- NOTE | 2024-11-07 13:24 | DVHPN2 ---
Progress Note Date Seen: Nov 07, 2024 Resident Creating Document: IOANA ROCHE RESIDENT Medical Necessity Reason Pt with a Central, PICC or Fol: No Subjective Review of Systems Patient seen and examined at bedside Denies any nausea or vomiting Last bowel movement today Plan to tentatively discharge tomorrow 25 cc serosanguineous drainage noted in the BRANDAN drain Objective vital signs Vital Sign Date Time Temp Pulse Resp B/P (MAP) Pulse Ox O2 Delivery O2 Flow Rate FiO2 11/07/24 09:00 98.3 81 19 109/68 (82) 96 98.3 11/07/24 08:00 Room Air* 0 21 Total Intake and Output 11/06/24 11/06/24 11/07/24 14:59 22:59 06:59 Intake Total 214 ml 750 ml 900 ml Output Total 1050 ml Balance 214 ml -300 ml 900 ml medications Current Medications Medications Dose Ordered Sig/Pedro Pablo Route Start Time Stop Time Status Last Admin Dose Admin Morphine Sulfate 1 mg Q4HP PRN IV 10/29/24 13:30 Hold 10/31/24 12:57 1 MG Hydromorphone HCl 1 mg Q3HPRN PRN IV 10/31/24 09:45 Cancel Ondansetron HCl 4 mg Q4HPRN PRN IV 10/31/24 09:45 Pantoprazole Sodium 40 mg DAILY IV 10/31/24 10:00 11/06/24 10:21 40 MG Hydromorphone HCl 1 mg Q3HPRN PRN IV 11/02/24 10:00 11/07/24 05:54 1 MG Lorazepam 1 mg Q6HP PRN IV 11/02/24 10:00 11/06/24 20:48 1 MG Hydralazine HCl 10 mg Q6HP PRN IV 11/03/24 13:15 11/04/24 16:20 10 MG Acetaminophen/ Hydrocodone Bitart 1 tab Q4HP PRN PO 11/07/24 13:00 Examination General Appearance: Cooperative. Well developed. Well nourished. NAD Pulmonary/Respiratory: Equal bilateral air entry Cardiovascular/Chest: Regular rate and rhythm. No murmurs. No JVD. Abdominal Exam: Normal bowel sounds. Soft. normal abdomen, incision noted, clean. Twenty-five cc serosanguineous drainage in the BRANDAN drain. Generalized minimal tenderness to palpation Neuro/Mental Status: A&O x4. Coherent. Thoughts/Psych: Normal thought pattern. Appropriate mood and affect. Good judgement and insight Skin Exam: Normal inspection. Normal color. Warm. Dry laboratory and microbiology Laboratory Tests 11/07/24 05:50 Test 11/07/24 05:50 Range/Units Serum Glucose 111 H 74-106 mg/dL Labs and/or images reviewed: Labs reviewed by me, Image(s) reviewed by me Problem List/Assessment/Plan Problem List/Assessment/Plan Right lower quadrant ileocecal mass; well-differentiated neuroendocrine tumor G1 Metastatic well-differentiated neuroendocrine tumor in the peritoneal implants Multiple metastatic lesions in the liver? SBO Peritoneal carcinomatosis? Breast mass Ascites Plan: Advance diet as tolerated Outpatient follow up with oncologist Continue postop care Continue antibiotics Elevated CA 125, discussed with patient Physical therapy, ambulate q.4 hours. Discussed pathology report with patient and at bedside in great detail, all questions answered and concerns were addressed. Thank you so much for the opportunity to consult on your patient. GI team will follow the patient. In case of any questions or concerns please feel free to reach out. Plan discussed with Dr. Germain Plan discussed with: Patient, Spouse, Other (RN) Dietary Evaluation Review Comments: 1) Continue TPN as needed 2) Advance to 60g CCHO cardiac diet when medically feasible 3) Refer to outpatient RD for weight management 4) Follow-up with gastroenterology and oncology 5) Continue to monitor I&O, labs, and skin integrity Expected Outcomes/Goals: 1) appetite and labs to improve 2) diet to advance 3) GI symptoms to resolve 4) f/u in 3-5 days IOANA ROCHE RESIDENT Nov 07, 2024 13:24
[2024-11-07] MEDS: HYDROcodone-ACET 10/325MG TAB PO PRN (13:54)
[2024-11-08 00:42] VITALS: BP 107/70; PULSE 85; RESP 16; TEMP 98.3; O2SAT 97
[2024-11-08 05:00] VITALS: BP 102/66; PULSE 82; RESP 16; TEMP 98.6; O2SAT 97
[2024-11-08 07:22] LABS: Hematocrit 32.8 % (36.0-46.0); Hemoglobin 11.4 g/dL (12.2-16.2); Mean Corpuscular Hemoglobin 31.1 pg (28.0-32.0); Mean Corpuscular Volume 89.4 fL (80.0-100.0); Nucleated Red Blood Cells % 0.0 %
[2024-11-08 07:24] LABS: Alanine Aminotransferase 10 U/L (7-40); Alkaline Phosphatase 76 U/L (46-116); Anion Gap 10 (5-15); BUN/Creatinine Ratio 9.2 (10.0-20.0); Calcium 8.8 mg/dL (8.7-10.4); Carbon Dioxide 27 mmol/L (20-31); Chloride 103 mmol/L (98-107); Glucose 95 mg/dL (74-106); Potassium 3.6 mmol/L (3.5-5.1); Sodium 140 mmol/L (136-145); Total Protein 6.1 g/dL (5.7-8.2)
[2024-11-08 07:25] LABS: Albumin 3.4 g/dL (3.2-4.8); Bilirubin, Total 0.4 mg/dL (0.2-1.0)
[2024-11-08 07:26] LABS: Blood Urea Nitrogen 6 mg/dL (9-23)
[2024-11-08 08:00] VITALS: PULSE 80; RESP 18; O2SAT 97
[2024-11-08 09:00] VITALS: BP 101/67; PULSE 82; RESP 17; TEMP 98.7; O2SAT 95
--- NOTE | 2024-11-08 10:11 | DVHPN2 ---
Progress Note Date Seen: Nov 08, 2024 Resident Creating Document: IOANA ROCHE RESIDENT Medical Necessity Reason Pt with a Central, PICC or Fol: No Objective vital signs Vital Sign Date Time Temp Pulse Resp B/P (MAP) Pulse Ox O2 Delivery O2 Flow Rate FiO2 11/08/24 09:00 98.7 82 17 101/67 (78) 95 98.7 11/07/24 20:00 Room Air* 0 21 Total Intake and Output 11/07/24 11/07/24 11/08/24 15:00 23:00 07:00 Intake Total 500 ml 500 ml Output Total 30 ml 25 ml 15 ml Balance -30 ml 475 ml 485 ml medications Current Medications Medications Dose Ordered Sig/Pedro Pablo Route Start Time Stop Time Status Last Admin Dose Admin Morphine Sulfate 1 mg Q4HP PRN IV 10/29/24 13:30 Hold 10/31/24 12:57 1 MG Hydromorphone HCl 1 mg Q3HPRN PRN IV 10/31/24 09:45 Cancel Ondansetron HCl 4 mg Q4HPRN PRN IV 10/31/24 09:45 Pantoprazole Sodium 40 mg DAILY IV 10/31/24 10:00 11/06/24 10:21 40 MG Hydromorphone HCl 1 mg Q3HPRN PRN IV 11/02/24 10:00 11/07/24 05:54 1 MG Lorazepam 1 mg Q6HP PRN IV 11/02/24 10:00 11/07/24 21:21 1 MG Hydralazine HCl 10 mg Q6HP PRN IV 11/03/24 13:15 11/04/24 16:20 10 MG Acetaminophen/ Hydrocodone Bitart 1 tab Q4HP PRN PO 11/07/24 13:00 11/08/24 05:25 1 TAB Diphenhydramine HCl 50 mg Q6HP PRN PO 11/07/24 13:30 11/08/24 05:25 50 MG laboratory and microbiology Laboratory Tests 11/08/24 05:03 Test 11/08/24 05:03 Range/Units Serum Glucose 95 74-106 mg/dL Problem List/Assessment/Plan Problem List/Assessment/Plan Right lower quadrant ileocecal mass; well-differentiated neuroendocrine tumor G1 Metastatic well-differentiated neuroendocrine tumor in the peritoneal implants Multiple metastatic lesions in the liver? SBO Peritoneal carcinomatosis? Breast mass Ascites Plan: Advance diet as tolerated Outpatient follow up with oncologist Continue postop care Continue antibiotics Elevated CA 125, discussed with patient Physical therapy, ambulate q.4 hours. Discussed pathology report with patient and at bedside in great detail, all questions answered and concerns were addressed. Thank you so much for the opportunity to consult on your patient. GI team will follow the patient. In case of any questions or concerns please feel free to reach out. Plan discussed with Dr. Germain Dietary Evaluation Review Comments: 1) Continue TPN as needed 2) Advance to 60g CCHO cardiac diet when medically feasible 3) Refer to outpatient RD for weight management 4) Follow-up with gastroenterology and oncology 5) Continue to monitor I&O, labs, and skin integrity Expected Outcomes/Goals: 1) appetite and labs to improve 2) diet to advance 3) GI symptoms to resolve 4) f/u in 3-5 days IOANA ROCHE RESIDENT Nov 08, 2024 10:11
[2024-11-08 12:31] VITALS: BP 116/71; PULSE 86; RESP 17; TEMP 99.2; O2SAT 100
[2024-11-08 13:00] VITALS: BP 122/81; PULSE 90; RESP 18; TEMP 97.6; O2SAT 95
[2024-11-08] MEDS ORDERED: HYDR-4902 PO (13:04)
[2024-11-08] MEDS ORDERED: NALO4SPR2 (13:04)
[2024-11-08] MEDS ORDERED: SENN17.23 PO (13:04)
--- NOTE | 2024-11-08 13:05 | DVHDS2 ---
Discharge Summary Date of Admission Oct 28, 2024 at 21:13 Date of Discharge: Nov 08, 2024 Labs/Diagnostic Data: Laboratory Results Test 11/08/24 05:03 11/06/24 05:39 11/06/24 05:17 11/02/24 05:41 White Blood Count 6.0 10^3/uL (4.4-10.8) Red Blood Count 3.67 10^6/uL (4.0-5.20) Hemoglobin 11.4 g/dL (12.2-16.2) Hematocrit 32.8 % (36.0-46.0) Mean Corpuscular Volume 89.4 fL (80.0-100.0) Mean Corpuscular Hemoglobin 31.1 pg (28.0-32.0) Mean Corpuscular Hemoglobin Concent 34.8 g/dL (32.0-36.0) Red Cell Distribution Width 14.0 % (11.8-14.3) Platelet Count 270 10^3/uL (140-450) Mean Platelet Volume 9.3 fL (6.9-10.8) Neutrophils (%) (Auto) 51.0 % (37.0-80.0) Lymphocytes (%) (Auto) 25.0 % (10.0-50.0) Monocytes (%) (Auto) 15.9 % (0.0-12.0) Eosinophils (%) (Auto) 7.6 % (0.0-7.0) Basophils (%) (Auto) 0.5 % (0.0-2.0) Neutrophils # (Auto) 3.0 10 ^3/uL (1.6-8.6) Lymphocytes # (Auto) 1.5 10 ^3/uL (0.4-5.4) Monocytes # (Auto) 1.0 10 ^3/uL (0-1.3) Eosinophils # (Auto) 0.5 10 ^3/uL (0-0.8) Basophils # (Auto) 0 10 ^3/uL (0-0.2) Nucleated Red Blood Cells 0.0 % Sodium Level 140 mmol/L (136-145) Potassium Level 3.6 mmol/L (3.5-5.1) Chloride Level 103 mmol/L (98-107) Carbon Dioxide Level 27 mmol/L (20-31) Anion Gap 10 (5-15) Blood Urea Nitrogen 6 mg/dL (9-23) Creatinine 0.65 mg/dL (0.550-1.02) Glomerular Filtration Rate Calc 107 mL/min (>90) BUN/Creatinine Ratio 9.2 (10.0-20.0) Serum Glucose 95 mg/dL (74-106) Calcium Level 8.8 mg/dL (8.7-10.4) Total Bilirubin 0.4 mg/dL (0.2-1.0) Aspartate Amino Transferase (AST) 20 U/L (13-40) Alanine Aminotransferase (ALT) 10 U/L (7-40) Alkaline Phosphatase 76 U/L (46-116) Total Protein 6.1 g/dL (5.7-8.2) Albumin 3.4 g/dL (3.2-4.8) Phosphorus Level 2.7 mg/dL (2.4-5.1) Magnesium Level 2.0 mg/dL (1.6-2.6) POC Glucose 116 mg/dl (70-106) Prealbumin 12.0 md/dL (10.0-40.0) Triglycerides Level 58 mg/dL (< 150) Test 10/29/24 15:41 10/29/24 05:43 10/29/24 03:25 10/28/24 15:54 Carcinoembryonic Antigen < 0.50 ng/mL (<=5.0) CA 125 Antigen 77.3 U/mL (0.0-38.1) Urine Test Negative (Negative) Prothrombin Time 11.3 sec (9.3-11.8) Prothrombin Time INR 1.07 (0.9-1.15) Activated Partial Thromboplast Time 28.9 SEC (24.5-34.5) Tumor Marker Alpha Fetoprotein 2.6 ng/mL (0.0-9.2) CA 19-9 Antigen 18 U/mL (0-35) Beta HCG, Quantitative 4.5 mIU/mL (1.5-4.2) Troponin I High Sensitivity < 3 ng/L (</=34) Lipase 25 U/L (12-53) Other Laboratory Tests 11/08/24 05:03 Brief Hx & Hospital Course: Yen Zafar is a 53-year-old female with a complex medical history including transient ischemic attack (TIA), chronic urinary tract infections (UTIs), dyslipidemia, urinary incontinence, overactive bladder, and diabetic nephropathy presented with a 10-day history of abdominal pain, vomiting, and diarrhea. She describes the abdominal pain as sharp, continuous, and radiating to the shoulder, with a severity of 10 out of 10. The pain worsens with food intake and improves with fasting. Associated symptoms include chills, bloating, and an inability to pass gas. She reports a 10-pound weight loss, decreased appetite, and abdominal discomfort upon eating. These symptoms reportedly began in May, and she underwent a colonoscopy in August. Additionally, she notes that her blood pressure readings have been elevated recently. She denies experiencing fever or shortness of breath. She is admitted and evaluated by multiple consultants including general surgeon with a surgical exploration for her right lower quadrant mass. Please see the detailed surgery note. Patient postop made slow but steady recovery. Patient is tolerating diet. Pain is improved. Overall clinically stable. She is advised to follow up outpatient basis with the oncologist for her cancer treatment and further evaluation. Otherwise while in the hospital she is re- evaluated by general surgeon today felt stable to be discharged home and he discharged her. However patient requested pain medication therefore I have prescribed her [place]. Otherwise rest of her hospital workup is uneventful. Discharge care plan as discussed with the patient's nurse and patient agree to follow up outpatient basis for further evaluation and treatment of her underlying cancer. Consults/Reason for consult Problem List/Assessment/Plan 10/29/24 several weeks of abdominal pain mostly in the right lower abdomen, pain radiates to the back, has been accompanied by diarrhea , patient did not notice blood in her stool but over the last 4 weeks she lost over 10 pounds of body weight, she had a hysterectomy and left oophorectomy in the past and tubal ligation, she still has her right ovary. she had a colonoscopy two months ago and was told after the colonoscopy that " everything is normal and that she has some cysts on the liver but they are nothing to worry about.on examination her abdomen is soft, slightly distended and tender to deep palpation in the right lower quadrant, no guarding and no rebound . labs and imaging reviewed, explained to patient that we do not have an accurate diagnosis and that she does not need an emergency operation today. also explained that on the ct scan she seems top have a mass in the right lower abdomen which could be related to the right ovary or the right side of her intestine and that we will obtain an MRI to get a better idea of what we are dealing with. also explained that she will most likely need an operation to solve her current problem. 11/01/24 patient's and parents at bedside, thorough explanation of operative findings and the inability to surgically cure her problem, full disclosure of disseminated nature of her malignancy and probable need for further treatments and interventions discussed in detail. all questions answered. 11/02/24 NO FLATUS OR BM, ABDOMEN NON DISTENDED APPROPRIATELY TENDER, WOUND CLEAN AND WELL APPROXIMATED, BRANDAN DRAINAGE SEROSANGUINEOUS. AMBULATING. 11/03/24 PATIENT STATES SHE IS EMOTIONALLY WORSE OF THAT SHE WAS YESTERDAY, i ATTEMPTED TO REASSURE HER THAT SHE WILL GET BETTER BUT THAT SHE DOES HAVE A COOK AHEAD. WOUND CLEAN AND WELL APPROXIMATED, DRAINAGE SERO SANGUINEOUS. GOOD INSPIRATORY EFFORT, ABDOMEN APPROPRIATELY TENDER, 11/04/24 IS HUNGRY, FEELS "BOWELACTIVITY"BUT HAS NOT PASSED FLATUS, WOUND OK ABDOMEN APPROPRIATELY TENDER, LABS REVIEWED. WILL DC NGT AND ALLOW PO ICE CHIPS(OTHERWISE REMAIN NPO) 11/05/24 PASSED FLATUS, WOUND OK BRANDAN, DRAINAGE SEROUS AABDOMEN NON DISTENDED. LABS OK, WILL ALLOW CLEAR LIQUIDS. 11/06/24 HAD A BM, PASSING FLATUS, IS HUNGRY WANTS TO GO HOME,SURGICALLY STABLE, WOUND OK, ABDOMEN APPROPRIATELY TENDER, BRANDAN DRAINAGE CLEAR SEROUS. WILL DC GUPTA, DC IV, DV TPN, ADVANCE DIET, CLEAR TO DISCHARGE tomorrow Plan discussed with: Patient, Spouse, Other HERMILO FINE MD Nov 06, 2024 10:38 Operations or Procedures DATE OF SURGERY: 10/31/2024 PREOPERATIVE DIAGNOSIS: Right lower quadrant abdominal mass. 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 SURGEON: Hermilo Fine MD. OPERATION PERFORMED: Exploratory laparotomy, right hemicolectomy, resection of peritoneal implant, ileoascending colostomy. DESCRIPTION OF PROCEDURE: Under general endotracheal anesthesia, with the patient's skin prepped and draped, a midline incision was made and the abdomen was manually and visually inspected. It contained numerous peritoneal implants visible and palpable on the anterior abdominal wall as well as on the mesentery and mesocolon and the mesenteric and antimesenteric borders of numerous bowel loops. Within the liver, there were palpable lesions in the left lobe as well as the right lobe of the liver. The right colon was densely adherent to the retroperitoneum with a large tumor, which was nearly completely obstructing the ileocecal segment. For this reason, a right hemicolectomy was performed in order to prevent the patient from developing a complete bowel obstruction in the near future. The cecum and ascending colon were mobilized, cross-clamped with a bowel clamp, mesentery divided between clamps and ligated. The distal ilium was similarly controlled with a bowel clamp. The mesentery was divided between clamps and ligated. Subsequently, a bowel clamp was used to prevent spillage of any enteric contents and the distal ileum as well as the cecum and ascending colon were transected. The specimen was removed from the field. A large peritoneal implant was submitted for frozen section histopathology, which is reported as showing malignant neoplasm, deferred for permanent. The patient's distal ilium and ascending colon were then brought to opposition and an anastomosis established between the two segments using a handsewn technique with 3-0 Monocryl and 3-0 Prolene for the inner and outer layer respectively. Mesenteric defect was approximated using 2-0 Monocryl suture. Abdomen was profusely irrigated. Irrigant was aspirated. Hemostasis was meticulously accomplished, found to be complete. A 10 mm Higinio-Holguin drain was inserted to the vicinity but not abutting against the anastomosis. It was exteriorized separately and secured with a 3-0 nylon suture. Following report of an accurate needle and sponge count, the abdomen was closed using #1 double-stranded PDS suture and metallic skin yanick. The patient remained hemodynamically stable throughout the procedure and left the operating room following an accurate needle and sponge count. The family was thoroughly informed in the waiting area. Hermilo Fine MD PF/INGRIS Condition at Discharge: Stable Final Diagnosis/Problems List SP EXLAP Abdominal pain due to metastatic well-differentiated neuroendocrine tumor Right lower quadrant ileocecal mass; well-differentiated neuroendocrine tumor G1 Metastatic well-differentiated neuroendocrine tumor; to liver and peritoneum Suspected Multiple metastatic lesions in the liver? Proximal small-bowel obstruction due to ileocecal mass s/p exploratory laparotomy, right hemicolectomy, resection of peritoneal implant, ileoascending colostomy on October 31, 2024; passing gas and stool Breast mass; to be investigated as outpatient Ascites due to peritoneal metastasis Suspected blood loss anemia TRISTA; most likely vasomotor nephropathy; resolved Sepsis with leukocytosis due to abdominal infection in the setting of proximal small bowel obstruction; finished IV antibiotics Allergic dermatitis with itching Emotional distress; no suicide ideation/plan Healed left buttock ruptured blister Obesity Discharge Disposition: Home Discharge Instruct/Medications Diet: Regular Diet comment: as nasar Activity: Light activity Activity comment: light Follow Up/Referral: call with problems, return to see me in two weeks Medications: xtrastrength tylenol for pain Scheduled Alprazolam (Xanax), 5 MG PO PRN, (Reported) Cholecalciferol (Vitamin D3), 1 TAB PO DAILY, (Reported) Hydroxyzine Hcl (Hydroxyzine Hcl), 5 ML PO PRN, (Reported) Magnesium Oxide (Magnesium Oxide), 1 TAB PO DAILY, (Reported) Oxybutynin Chloride (Gelnique), 1 PACK TOP DAILY, (Reported) Senna (Senokot Extra Strength), 17.2 MG PO QPM Simvastatin (Simvastatin), 10 MG PO DAILY, (Reported) Scheduled PRN Hydrocodone-Acetaminophen (Hydrocodone Bitartrate/AC 5-325 mg), 1 TAB PO Q8HPRN PRN Naloxone HCl (Narcan), 4 MG NA Q5MINP PRN Miscellaneous Medications Calcium Amino Acid Chelate (Calcium), 280 MG PO, (Reported) Discontinued Medications Nitrofurantoin (Nitrofurantoin), 1 CAP PO DAILY, (Reported) Zinc Gluconate (Zinc), 100 MG PO, (Reported) Discharge Statement: "Patient was advised to return to the ER or call 911 if any headaches, dizziness, shortness of breath, chest pain, abdominal pain, bleeding, fevers, or worsening of medical condition. Patient was counseled about treatment plan, medications, possible side effects, patientverbalized understanding. All questions were answered to the best of my ability. This discharge took greater then 30 minutes in planning, reviewing documentation, counseling the patient, and discussing with other team members." ASSESSMENT ASSESSMENT Assessment SP EXLAP Date of Service: Nov 08, 2024 Billing Provider: JONAH PFEIFFER MD Common Visit Codes: 98434-FMG/OBS DISCH DAY <30MIN JONAH PFEIFFER MD Nov 08, 2024 13:05
== END 2024-11-08 13:19 | disposition home or self-care (01) | DRG 329 ==
LOC: ER 15:06 → OVERFLOW 21:13 → TELE-CENTR 10-29 18:38 → CENTRAL 11-02 18:38
PROVIDERS: ADMIT Hospitalist; ATTEND Hospitalist
PROC: 0DBW0ZZ Excision of Peritoneum, Open Approach (ICD-10-PCS; 2024-10-31)
PROC: 0D9670Z Drainage of Stomach with Drainage Device, Via Natural or Artificial Opening (ICD-10-PCS; 2024-10-31)
PROC: 0DTF0ZZ Resection of Right Large Intestine, Open Approach (ICD-10-PCS; principal; 2024-10-31 07:39)
DX: C18.0 Malignant neoplasm of cecum (principal); N17.0 Acute kidney failure with tubular necrosis; C78.6 Secondary malignant neoplasm of retroperitoneum and peritoneum; C78.7 Secondary malignant neoplasm of liver and intrahepatic bile duct; R18.8 Other ascites; K56.699 Other intestinal obstruction unspecified as to partial versus complete obstruction; D3A.8 Other benign neuroendocrine tumors; E78.5 Hyperlipidemia, unspecified; I10 Essential (primary) hypertension; K57.30 Diverticulosis of large intestine without perforation or abscess without bleeding; K64.8 Other hemorrhoids; K62.1 Rectal polyp; N63.0 Unspecified lump in unspecified breast; R32 Unspecified urinary incontinence; N32.81 Overactive bladder; E11.21 Type 2 diabetes mellitus with diabetic nephropathy; E66.9 Obesity, unspecified; G89.3 Neoplasm related pain (acute) (chronic); L23.9 Allergic contact dermatitis, unspecified cause; Z68.31 Body mass index [BMI] 31.0-31.9, adult; Z80.8 Family history of malignant neoplasm of other organs or systems; Z82.3 Family history of stroke; Z82.49 Family history of ischemic heart disease and other diseases of the circulatory system; Z86.73 Personal history of transient ischemic attack (TIA), and cerebral infarction without residual deficits; Z90.710 Acquired absence of both cervix and uterus; Z90.721 Acquired absence of ovaries, unilateral; Z79.82 Long term (current) use of aspirin; Z79.899 Other long term (current) drug therapy; Z79.2 Long term (current) use of antibiotics
CPT/HCPCS: 36415; 71045; 71046; 72195; 74176; 74181; 76705; 80048; 80053; 81025; 82040; 82105; 82378; 82962; 83690; 83735; 84100; 84478; 84484; 84702; 85025; 85060; 85610; 85730; 86301; 86304; 86850; 86900; 86901; 93005; 93971; 96365; 97110; 97116; 97163; 97530; G0378; J0131; J1100; J1815; J1885; J2003; J2250; J2470; J2704; J3480; J3490; Q0162

== ENCOUNTER 2025-01-18 03:50 | Inpatient (IN) | payer OTHER ==
[~2025-01-18] VITALS: Ht 157.5 cm; Wt 67.0 kg
[~2025-01-18 03:50] MED LIST changes: +ALPR2TAB2 PO; -ASPI-543 PO; -ASPI81CH59 PO; -D-MA1POW OR; +HYDR-4902 PO; +NALO4SPR2; +SENN17.23 PO; -ZINC100T5 PO
--- NOTE | 2025-01-18 04:16 | ED.PDOC ---
GI ASSESSMENT HPI Comments Patient is a 54-year-old female with past medical history of hypertension, hyperlipidemia, diabetes, neuroendocrine tumor, presenting with diffuse abdominal cramping associated with nausea and multiple episodes of nonbloody nonbilious emesis for the past 3 days. Patient states that she received her 1st dose of lanreotide injection on Thursday, and since then has been having symptoms. She has not tried anything for his symptoms at home. She states nothing makes her symptoms better or worse. She has been unable to tolerate any p.o. since onset of symptoms. She denies any fever, cough, chest pain, shortness of breath, diarrhea, urinary symptoms, sick contacts recent travel. Chief Complaint: Nausea/Vomiting Time Seen by MD: 04:01 Primary Care Provider: JESICA Allergies: Coded Allergies: NO KNOWN ALLERGIES (Unverified , 06/06/16) Home Meds Active Scripts Senna (Senokot Extra Strength) 17.2 Mg Tab, 17.2 MG PO QPM, #20 TAB Prov:JONAH PFEIFFER MD 11/08/24 Naloxone HCl (Narcan) 4 Mg/0.1 Ml Spr, 4 MG NA Q5MINP PRN, #1 SPRAY Prov:JONAH PFEIFFER MD 11/08/24 Hydrocodone-Acetaminophen (Hydrocodone Bitartrate/AC 5-325 mg) 1 Tab Tab, 1 TAB PO Q8HPRN PRN, #14 TAB Prov:JONAH PFEIFFER MD 11/08/24 Reported Medications Alprazolam (Xanax) 2 Mg Tab, 5 MG PO PRN, TAB 10/29/24 Cholecalciferol (VITAMIN D3) 2,000 Unit Tab, 1 TAB PO DAILY, #90 TAB 3 Refills 09/07/24 Calcium Amino Acid Chelate (Calcium) 280 Mg Tab, 280 MG PO, TAB 09/07/24 Magnesium Oxide (MAGNESIUM OXIDE) 400 Mg Tab, 1 TAB PO DAILY, #90 TAB 3 Refills 09/07/24 Hydroxyzine Hcl (Hydroxyzine Hcl) 10 Mg/5 Ml Syp, 5 ML PO PRN, #150 ML 09/07/24 Oxybutynin Chloride (Gelnique) 10 % Gel, 1 PACK TOP DAILY, #90 PACK 3 Refills 09/07/24 Simvastatin (Simvastatin) 10 Mg Tab, 10 MG PO DAILY for 30 Days, MG 06/07/16 Mode of Arrival: Ambulatory Past Medical History PAST MEDICAL HISTORY: DM, High Lipids, HTN Surgical History: Denies all 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 Family History Family History: Reviewed,noncontributory to illness, No family hx of DM, No family hx of Heart philip, No family hx of HTN Social History Smoker: Non-Smoker Alcohol: Denies ETOH Use Drugs: Denies Drug Use Lives In: Home Constitutional: denies: chills, diaphoresis, fatigue, fever, malaise, sweats, weakness, others EENTM: denies: blurred vision, double vision, ear bleeding, ear discharge, ear drainage, ear pain, ear ringing, eye pain, eye redness, hearing loss, mouth pain, mouth swelling, nasal discharge, nose bleeding, nose congestion, nose pain, photophobia, tearing, throat pain, throat swelling, voice changes, others Respiratory: denies: cough, hemoptysis, orthopnea, SOB at rest, shortness of breath, SOB with excertion, stridor, wheezing, others Cardiovascular: denies: chest pain, dizzy spells, diaphoresis, Dyspnea on exertion, edema, irregular heart beat, left arm pain, lightheadedness, palpitations, PND, syncope, others Gastrointestinal: reports: abdominal pain, nausea, vomiting; denies: abdomen distended, blood streaked bowels, constipated, diarrhea, dysphagia, difficulty swallowing, hematemesis, melena, poor appetite, poor fluid intake, rectal bleeding, rectal pain, others Genitourinary: denies: abnormal vagina bleeding, burning, dyspareunia, dysuria, flank pain, frequency, hematuria, incontinence, pain, , vagina discharge, urgency, others Neurological: denies: dizziness, fainting, headache, left sided numbness, left sided weakness, numbness, paresthesia, pre-existing deficit, right sided numbness, right sided weakness, seizure, speech problems, tingling, tremors, weakness, others Musculoskeletal: denies: back pain, gout, joint pain, joint swelling, muscle pain, muscle stiffness, neck pain, others Integumetry: denies: bruises, change in color, change in hair/nails, dryness, laceration, lesions, lumps, rash, wounds, others Allergic/Immunocompromised: denies: Difficulty Healing, Frequent Infections, Hives, Itching, others Hematologic/Lymphatic: denies: anemia, blood clots, easy bleeding, easy bruising, swollen glands, others Endocrine: denies: excessive hunger, excessive sweating, excessive thirst, excessive urination, flushing, intolerance to cold, intolerance to heat, unex plained weight gain, unexplained weight loss, others Psychiatric: denies: anxiety, bipolar disorder, depression, hopeless, panic disorder, schizophrenia, sleepless, suicidal, others Physical Exam General Appearance: Mild Distress, No Apparent Distress, Normal HEENT: Normal ENT Inspection, Pharynx Normal, TMs Normal Neck: Full Range of Motion, Non-Tender, Normal, Normal Inspection Respiratory: Chest Non-Tender, Lungs Clear, No Accessory Muscle Use, No Respiratory Distress, Normal Breath Sounds Cardiovascular: No Edema, No JVD, No Murmur, No Gallop, Normal Peripheral Pulses, Regular Rate/Rhythm Breast Exam: Deferred Gastrointestinal: Diffuse, No Organomegaly, No Pulsatile Mass, Normal Bowel Sounds, Soft, Tenderness Genitalia: Deferred Pelvic: Deferred Rectal: Deferred Extremities: No calf tenderness, Normal capillary refill, Normal inspection, Normal range of motion, Non-tender, No pedal edema Musculoskeletal : Apperance: Normal Neurologic: 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 Was a procedure done?: No GI differential Dx Differential Diagnosis: Appendicitis, Angina/FL, Bowel Obstruction, Constipation, Diverticular disease, Esophagitis, Gastritis/PUD, Gastroenteritis, Pancreatitis, UTI, Dehydration, Electrolyte Imbalance, Food Poisoning, Viral, Hypovolemia, Renal Failure, Kidney Stone X-Ray, Labs, Meds, VS Vital Signs Date Time Temp Pulse Resp B/P (MAP) Pulse Ox O2 Delivery O2 Flow Rate FiO2 01/18/25 05:17 98.2 90 18 88/60 (69) 95 98.2 01/18/25 05:15 90 18 88/60 01/18/25 03:56 97.4 118 20 113/79 97 97.4 Lab Test 01/18/25 04:06 Range/Units White Blood Count 9.1 4.4-10.8 10^3/uL Red Blood Count 5.31 H 4.0-5.20 10^6/uL Hemoglobin 16.5 H 12.2-16.2 g/dL Hematocrit 48.7 H 36.0-46.0 % Mean Corpuscular Volume 91.7 80.0-100.0 fL Mean Corpuscular Hemoglobin 31.1 28.0-32.0 pg Mean Corpuscular Hemoglobin Concent 34.0 32.0-36.0 g/dL Red Cell Distribution Width 12.7 11.8-14.3 % Platelet Count 340 140-450 10^3/uL Mean Platelet Volume 9.2 6.9-10.8 fL Neutrophils (%) (Auto) 83.1 H 37.0-80.0 % Lymphocytes (%) (Auto) 5.3 L 10.0-50.0 % Monocytes (%) (Auto) 11.4 0.0-12.0 % Eosinophils (%) (Auto) 0.0 0.0-7.0 % Basophils (%) (Auto) 0.2 0.0-2.0 % Neutrophils # (Auto) 7.6 1.6-8.6 10 ^3/uL Lymphocytes # (Auto) 0.5 0.4-5.4 10 ^3/uL Monocytes # (Auto) 1.0 0-1.3 10 ^3/uL Eosinophils # (Auto) 0 0-0.8 10 ^3/uL Basophils # (Auto) 0 0-0.2 10 ^3/uL Nucleated Red Blood Cells 0.1 % Sodium Level 137 136-145 mmol/L Potassium Level 4.3 3.5-5.1 mmol/L Chloride Level 102 98-107 mmol/L Carbon Dioxide Level 18 L 20-31 mmol/L Anion Gap 17 H 5-15 Blood Urea Nitrogen 22 9-23 mg/dL Creatinine 0.94 0.550-1.02 mg/dL Glomerular Filtration Rate Calc 73 >90 mL/min BUN/Creatinine Ratio 23.4 H 10.0-20.0 Serum Glucose 171 H 74-106 mg/dL Calcium Level 10.0 8.7-10.4 mg/dL Total Bilirubin 0.6 0.2-1.0 mg/dL Aspartate Amino Transferase (AST) 20 13-40 U/L Alanine Aminotransferase (ALT) 26 7-40 U/L Alkaline Phosphatase 155 H 46-116 U/L Troponin I High Sensitivity < 3 L </=34 ng/L Total Protein 8.6 H 5.7-8.2 g/dL Albumin 4.8 3.2-4.8 g/dL Lipase 24 12-53 U/L Current Medications Medications (Trade) Dose Ordered Sig/Pedro Pablo Route Start Time Stop Time Status Last Admin Ondansetron HCl (Zofran) 4 mg ONCE ONCE IV 01/18/25 04:15 01/18/25 04:16 DC 01/18/25 05:16 Morphine Sulfate 4 mg ONCE ONCE IV 01/18/25 04:15 01/18/25 04:16 DC 01/18/25 05:15 Sodium Chloride 1,000 ml @ 1,000 mls/hr Q1H ONCE IV 01/18/25 04:30 01/18/25 05:29 DC 01/18/25 05:16 X-Ray, Labs, Meds, VS Comment Patient presenting with abdominal pain, nausea, vomiting after 1st dose of lanreotide for her neuroendocrine tumor on Thursday. Patient uncomfortable appearing and actually vomiting on my assessment. Diffuse abdominal pain on my exam. Lab work (CBC, BMP) to evaluate for evidence of severe anemia, electrolyte abnormality including hypokalemia, hyperkalemia, hypernatremia, hyponatremia, hyperglycemia, hypoglycemia, etc. Urinalysis to evaluate for hematuria or infection EKG and troponin to evaluate for evidence of arrhythmia, ACS, AMI CT abdomen pelvis to evaluate for acute appendicitis, colitis, diverticulitis, kidney stone, obstruction, mass, etc. IV fluids IV Zofran IV morphine Re-evaluate Social determinant surveillance affecting care: Social determinants of health that will affect the patient's care: Poor health literacy (additional time provided an explanation) Poor access to outpatient care/followup (provided outpatient resources) Time of 1ST Reevaluation: 05:30 Reevaluation 1ST: Improved Patient Education/Counseling: Diagnosis, Treatment Family Education/Counseling: No Family Present SEPSIS Sepsis Screen Date sepsis recognized/suspect: Jan 18, 2025 Time Sepsis recognized/suspect: 399 Recent Procedure: No On Antibiotic Therapy: No Respiratory Rate >20: No Heart Rate >90: Yes Temp<36 C (96.8 F) or >38.3 C: No SBP <90 or MAP <65 mmHG: No New Acute Mental Status Change: No Is the patient on CPAP, BIPAP,: No Physician Orders Urinalysis (01/18/25 04:00) Electrocardigram (01/18/25 04:00) Troponin-I Hs (01/18/25 05:00) Troponin-I Hs (01/18/25 07:00) Electrocardigram (01/18/25 05:00) Electrocardigram (01/18/25 07:00) Ct Ab Pel With Iv Con Only (01/18/25 04:10) Admit (01/18/25 05:30) Allergies (01/18/25 05:30) Code Status (01/18/25 05:30) Sodium Chloride Lock (Saline Lock Ns) (01/18/25 06:00) Sodium Chloride 0.9% (01/18/25 05:30) Ondansetron Hcl (Zofran) (01/18/25 05:30) Enoxaparin Sodium (Lovenox) (01/18/25 10:00) Complete Blood Count (01/19/25 04:00) Comprehensive Metabolic Panel (01/19/25 04:00) Npo (Nothing By Mouth) Diet (01/18/25 Breakfast) Acetaminophen Tablet (Tylenol Tablet) (01/18/25 05:30) Stat Ekg For Chest Pain (01/18/25 05:30) Balancer Scale For 24 Hours (01/18/25 05:30) Emergency Dysrhythmia Protocol (01/18/25 05:30) Abg W/ Co-Ox (01/18/25 05:37) Lactic Acid W/ Reflex Order (01/18/25 05:37) Urinalysis (01/18/25 05:37) Drug Screen (01/18/25 05:37) PTPTT (01/18/25 05:37) Vital Signs Date Time Temp Pulse Resp B/P (MAP) Pulse Ox O2 Delivery O2 Flow Rate FiO2 01/18/25 05:17 98.2 90 18 88/60 (69) 95 98.2 01/18/25 05:15 90 18 88/60 01/18/25 03:56 97.4 118 20 113/79 97 97.4 Laboratory Tests Test 01/18/25 04:06 White Blood Count 9.1 10^3/uL (4.4-10.8) Medications Medications Dose Ordered Sig/Pedro Pablo Route Start Time Stop Time Status Last Admin Dose Admin Morphine Sulfate 4 mg ONCE ONCE IV 01/18/25 04:15 01/18/25 04:16 DC 01/18/25 05:15 Ondansetron HCl 4 mg ONCE ONCE IV 01/18/25 04:15 01/18/25 04:16 DC 01/18/25 05:16 Sodium Chloride 1,000 ml @ 1,000 mls/hr Q1H ONCE IV 01/18/25 04:30 01/18/25 05:29 DC 01/18/25 05:16 Departure 1 Departure Time of Disposition: 05:55 (On reassessment, patient is still complaining of pain and unable to tolerate p.o.. Labs unremarkable, however we will admit for intractable pain and inability to tolerate p.o..) Impression: Primary Impression: Acute generalized abdominal pain Additional Impression: Acute nausea with nonbilious vomiting Disposition: ADMITTED INPATIENT Admit to: Med Surg Condition: Guarded Critical Care Note Critical Care Time?: No Stability Stability form required: CARLINE Kessler MD Jan 18, 2025 04:15
[2025-01-18 04:17] LABS: Hematocrit 48.7 % (36.0-46.0); Hemoglobin 16.5 g/dL (12.2-16.2); Mean Corpuscular Hemoglobin 31.1 pg (28.0-32.0); Mean Corpuscular Volume 91.7 fL (80.0-100.0); Nucleated Red Blood Cells % 0.1 %
[2025-01-18 04:35] LABS: Alanine Aminotransferase 26 U/L (7-40); Albumin 4.8 g/dL (3.2-4.8); Anion Gap 17 (5-15); BUN/Creatinine Ratio 23.4 (10.0-20.0); Blood Urea Nitrogen 22 mg/dL (9-23); Calcium 10.0 mg/dL (8.7-10.4); Chloride 102 mmol/L (98-107); Lipase 24 U/L (12-53); Potassium 4.3 mmol/L (3.5-5.1); Sodium 137 mmol/L (136-145)
[2025-01-18 04:36] LABS: Bilirubin, Total 0.6 mg/dL (0.2-1.0)
[2025-01-18 04:46] LABS: Alkaline Phosphatase 155 U/L (46-116); Carbon Dioxide 18 mmol/L (20-31); Glucose 171 mg/dL (74-106); Total Protein 8.6 g/dL (5.7-8.2)
[2025-01-18] MEDS: MORPHINE SULFATE 4 MG/ML SYR/VIAL IV ONE (05:15)
[2025-01-18] MEDS: SODIUM CHLORIDE 0.9% 1,000 ML IV ONE (05:16)
[2025-01-18] MEDS: ONDANSETRON HCL 4 MG/2 ML VIAL IV ONE (05:16)
[2025-01-18] MEDS: IOHEXOL 300 MG/ML 100ML BOTTLE IJ ONE (05:28)
--- NOTE | 2025-01-18 05:48 | DVHHPRES ---
History of Present Illness Resident Creating Document: DELFINA JETT RESIDENT History of Present Illness Ms Yen Zafar, a 54-year-old female with previous history of neuroendocrine tumor resection from bowel on chemotherapy, dyslipidemia, multiple laparoscopies due to endometriosis, hysterectomy with left oophorectomy in 2019, presented to the ER due to intractable nausea and vomiting. According to the patient she can not put water down, since her 1st chemotherapy on Thursday. She felt her abdomen a.m. rock-hard and she had several episodes of nausea and vomiting. She denies any diarrhea. In October 2024, patient was diagnosed with metastatic well-differentiated neuroendocrine tumor, right lower quadrant ago sickle mass well-differentiated neuroendocrine tumor GI, metastatic to liver and peritoneum. with possible multiple metastasic lesion in the liver. The patient underwent laparotomy, right hemicolectomy, resection of peritoneal implant,ascending colostomy on October 31, 2024. She was taking line oriented or somatostatin for the neuroendocrine tumor. On admission the patient was found to have tachycardia, polycythemia, hyperglycemia, anion gap metabolic acidosis and abdomen pelvis CT pending results. We will follow up on She denies any chest pain, shortness of breath, fever, cough or any other complaints. Her blood glucose was also elevated on admission however patient denied any history of diabetes mellitus, she denies any CKD as well. Her last HbA1c was 5.3. Past medical history: As above Past surgical history: As above Home medications: Simvastatin, somatostatin analog Smoking: Passive exposure due to parents smoking and also patient worked in the [employer]. Alcohol: never Drugs: never Code status: Full code Review of Systems Allergies: Coded Allergies: NO KNOWN ALLERGIES (Unverified , 06/06/16) Medications Current Medications Medications Dose Ordered Sig/Pedro Pablo Route Start Time Stop Time Status Last Admin Dose Admin Sodium Chloride 10 ml Q8HR IV 01/18/25 06:00 Sodium Chloride 1,000 ml @ 100 mls/hr Q10H IV 01/18/25 05:30 Ondansetron HCl 4 mg Q4HP PRN IV 01/18/25 05:30 Enoxaparin Sodium 40 mg DAILY SC 01/18/25 10:00 Acetaminophen 650 mg Q6HP PRN PO 01/18/25 05:30 Exam Vital Signs Vital Signs Date Time Temp Pulse Resp B/P (MAP) Pulse Ox O2 Delivery O2 Flow Rate FiO2 01/18/25 05:17 98.2 90 18 88/60 (69) 95 98.2 Labs/Xrays Labs Test 01/18/25 04:06 Range/Units White Blood Count 9.1 4.4-10.8 10^3/uL Red Blood Count 5.31 H 4.0-5.20 10^6/uL Hemoglobin 16.5 H 12.2-16.2 g/dL Hematocrit 48.7 H 36.0-46.0 % Mean Corpuscular Volume 91.7 80.0-100.0 fL Mean Corpuscular Hemoglobin 31.1 28.0-32.0 pg Mean Corpuscular Hemoglobin Concent 34.0 32.0-36.0 g/dL Red Cell Distribution Width 12.7 11.8-14.3 % Platelet Count 340 140-450 10^3/uL Mean Platelet Volume 9.2 6.9-10.8 fL Neutrophils (%) (Auto) 83.1 H 37.0-80.0 % Lymphocytes (%) (Auto) 5.3 L 10.0-50.0 % Monocytes (%) (Auto) 11.4 0.0-12.0 % Eosinophils (%) (Auto) 0.0 0.0-7.0 % Basophils (%) (Auto) 0.2 0.0-2.0 % Neutrophils # (Auto) 7.6 1.6-8.6 10 ^3/uL Lymphocytes # (Auto) 0.5 0.4-5.4 10 ^3/uL Monocytes # (Auto) 1.0 0-1.3 10 ^3/uL Eosinophils # (Auto) 0 0-0.8 10 ^3/uL Basophils # (Auto) 0 0-0.2 10 ^3/uL Nucleated Red Blood Cells 0.1 % Sodium Level 137 136-145 mmol/L Potassium Level 4.3 3.5-5.1 mmol/L Chloride Level 102 98-107 mmol/L Carbon Dioxide Level 18 L 20-31 mmol/L Anion Gap 17 H 5-15 Blood Urea Nitrogen 22 9-23 mg/dL Creatinine 0.94 0.550-1.02 mg/dL Glomerular Filtration Rate Calc 73 >90 mL/min BUN/Creatinine Ratio 23.4 H 10.0-20.0 Serum Glucose 171 H 74-106 mg/dL Calcium Level 10.0 8.7-10.4 mg/dL Total Bilirubin 0.6 0.2-1.0 mg/dL Aspartate Amino Transferase (AST) 20 13-40 U/L Alanine Aminotransferase (ALT) 26 7-40 U/L Alkaline Phosphatase 155 H 46-116 U/L Troponin I High Sensitivity < 3 L </=34 ng/L Total Protein 8.6 H 5.7-8.2 g/dL Albumin 4.8 3.2-4.8 g/dL Lipase 24 12-53 U/L SEPSIS Sepsis Screen Date sepsis recognized/suspect: Jan 18, 2025 Time Sepsis recognized/suspect: 399 Recent Procedure: No On Antibiotic Therapy: No Respiratory Rate >20: No Heart Rate >90: Yes Temp<36 C (96.8 F) or >38.3 C: No SBP <90 or MAP <65 mmHG: No New Acute Mental Status Change: No Is the patient on CPAP, BIPAP,: No Physician Orders Urinalysis (01/18/25 04:00) Electrocardigram (01/18/25 04:00) Troponin-I Hs (01/18/25 05:00) Troponin-I Hs (01/18/25 07:00) Electrocardigram (01/18/25 05:00) Electrocardigram (01/18/25 07:00) Ct Ab Pel With Iv Con Only (01/18/25 04:10) Admit (01/18/25 05:30) Allergies (01/18/25 05:30) Code Status (01/18/25 05:30) Sodium Chloride Lock (Saline Lock Ns) (01/18/25 06:00) Sodium Chloride 0.9% (01/18/25 05:30) Ondansetron Hcl (Zofran) (01/18/25 05:30) Enoxaparin Sodium (Lovenox) (01/18/25 10:00) Complete Blood Count (01/19/25 04:00) Comprehensive Metabolic Panel (01/19/25 04:00) Npo (Nothing By Mouth) Diet (01/18/25 Breakfast) Acetaminophen Tablet (Tylenol Tablet) (01/18/25 05:30) Stat Ekg For Chest Pain (01/18/25 05:30) [employer] Operations Consultant For 24 Hours (01/18/25 05:30) Emergency Dysrhythmia Protocol (01/18/25 05:30) Abg W/ Co-Ox (01/18/25 05:37) Lactic Acid W/ Reflex Order (01/18/25 05:37) Urinalysis (01/18/25 05:37) Drug Screen (01/18/25 05:37) PTPTT (01/18/25 05:37) Vital Signs Date Time Temp Pulse Resp B/P (MAP) Pulse Ox O2 Delivery O2 Flow Rate FiO2 01/18/25 05:17 98.2 90 18 88/60 (69) 95 98.2 01/18/25 05:15 90 18 88/60 01/18/25 03:56 97.4 118 20 113/79 97 97.4 Laboratory Tests Test 01/18/25 04:06 White Blood Count 9.1 10^3/uL (4.4-10.8) Medications Medications Dose Ordered Sig/Pedro Pablo Route Start Time Stop Time Status Last Admin Dose Admin Morphine Sulfate 4 mg ONCE ONCE IV 01/18/25 04:15 01/18/25 04:16 DC 01/18/25 05:15 4 MG Ondansetron HCl 4 mg ONCE ONCE IV 01/18/25 04:15 01/18/25 04:16 DC 01/18/25 05:16 4 MG Sodium Chloride 1,000 ml @ 1,000 mls/hr Q1H ONCE IV 01/18/25 04:30 01/18/25 05:29 DC 01/18/25 05:16 1,000 MLS/HR Assessment/Plan Assessment/Plan Intractable nausea and vomiting status post chemotherapy 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 Alvarado, patient and RN Plan discussed with: Patient, Other (RN) My Orders Orders - DELFINA JETT RESIDENT Procedure Category Date Status Time Admit ADMIT 01/18/25 Transmitted 05:30 Allergies ANN 01/18/25 In Process 05:30 Code Status CODE 01/18/25 Transmitted 05:30 Sodium Chloride Lock PHA 01/18/25 In Process (Saline Lock Ns) 06:00 Sodium Chloride 0.9% PHA 01/18/25 In Process 05:30 Ondansetron Hcl PHA 01/18/25 In Process (Zofran) 05:30 Enoxaparin Sodium PHA 01/18/25 In Process (Lovenox) 10:00 Complete Blood Count LAB 01/19/25 Verified 04:00 Comprehensive LAB 01/19/25 Verified Metabolic Panel 04:00 Npo (Nothing By DIET 01/18/25 Transmitted Mouth) Diet Breakfast Acetaminophen Tablet PHA 01/18/25 In Process (Tylenol Tablet) 05:30 Stat Ekg For Chest ANN 01/18/25 In Process Pain 05:30 [employer] Operations Consultant For ANN 01/18/25 In Process 24 Hours 05:30 Emergency Dysrhythmia [facility] 01/18/25 In Process Protocol 05:30 Abg W/ Co-Ox RT 01/18/25 Logged 05:37 Lactic Acid W/ Reflex LAB 01/18/25 Logged Order 05:37 Urinalysis LAB 01/18/25 Logged 05:37 Drug Screen LAB 01/18/25 Logged 05:37 PTPTT LAB 01/18/25 Logged 05:37 Visit Coding STANDARD RES Billing Provider: JANIE ALVARADO MD Date of Service if different f: Jan 18, 2025 DELFINA JETT RESIDENT Jan 18, 2025 05:48
[2025-01-18 06:01] LABS: Base Excess -8.8 mmol/L (-2.0-3.0)
--- NOTE | 2025-01-18 06:02 | DVH ---
Exam: CT CT AB PEL WITH IV CON ONLY History: diffuse abd pain COMPARISON: MRI MRI ABD PLEVIS W/WO CONT on DOS: 10/29/24, CT CT AB PEL WO CON- NO ORAL OR IV on DOS: 10/28/24, CT CT AB PEL WO CON-NO ORAL OR IV on DOS: 09/10/24, US PELVIC on DOS: 04/19/24 Technique: Multidetector spiral CT of the abdomen and pelvis was performed from lung bases to pubic symphysis. Intravenous contrast was administered during this examination. Portal venous imaging was obtained. Axial, coronal and sagittal multiplanar reformats were performed by the technologist on a separate workstation. Radiation Dose : 1. Abdomen/Pelvis: CTDIvol 9.41 mGy, DLP 470.87 mGy*cm. CONTRAST: Type of contrast: Omnipaque 300 Contrast injected: 100 ml Findings: Lung Bases: No acute or significant lung base finding. Normal heart size. No pleural or pericardial effusion. Liver: The liver is normal in size. Progressive interval increase in at least 2 relatively well-circumscribed dominant hepatic mass lesions measuring 3.1 cm within the left lobe and 2.3 cm within the right lobe. Posteriorly adjacent to the left hepatic lobe mass lesion is a new 2.9 cm hypoattenuating mass and there are several other scattered smaller hypodense lesions throughout the liver, consistent with progressive metastatic disease. Gallbladder and Biliary Tree: Unremarkable Spleen: Unremarkable Pancreas: The pancreas is normal in appearance without focal lesions or abnormal enhancement. Adrenal Glands: Unremarkable Kidneys: No hydronephrosis. Bladder: Unremarkable Bowel: The stomach is grossly normal in appearance. Moderately distended predominantly fluid-filled segments of small bowel exhibiting enhancing wall thickening suggestive of sequelae of enteritis. No definite evidence of obstruction. Small bowel and colon are otherwise normal in caliber and distribut ion. The appendix is not visualized; however, no secondary findings of acute appendicitis identified. Ascites: Absent Lymphadenopathy: No mesenteric, retroperitoneal or periportal lymphadenopathy. Abdominal Wall and Mesentery: Unremarkable. Vasculature: The visualized abdominal aorta is normal in size and caliber. Abdominal and pelvic vessels demonstrate normal enhancement. Pelvic Organs: Unremarkable Musculoskeletal: No aggressive focal bony lesions, acute fractures or dislocation. IMPRESSION: 1. Moderately distended predominantly fluid-filled segments of small bowel exhibiting enhancing wall thickening suggestive of sequelae of enteritis. 2. No definite evidence of obstruction. 3. Progressive interval increase in at least 2 relatively well-circumscribed dominant hepatic mass lesions measuring 3.1 cm within the left lobe and 2.3 cm within the right lobe. 4. Posteriorly adjacent to the left hepatic lobe mass lesion is a new 2.9 cm hypoattenuating mass and there are several other scattered smaller hypodense lesions throughout the liver, consistent with progressive metastatic disease. Radiation optimization: All CT scans at this facility use at least one of these dose optimization techniques: automated exposure control mA and/or kV adjustment per patient size (includes targeted exams where dose is matched to clinical indication) or iterative reconstruction.
[2025-01-18 06:24] LABS: INR 1.15 (0.9-1.15); Partial Thromboplastin Time 29.4 SEC (24.5-34.5); Prothrombin Time 12.0 sec (9.3-11.8)
[2025-01-18] MEDS: SODIUM CHLOR 0.9% PF (SALINE LOCK) 10ML VIAL/SYR IV SCH (06:27)
[2025-01-18 06:37] LABS: Lactic Acid w/Reflex 2.1 mmol/L (0.4-2.0)
[2025-01-18 07:19] LABS: Urine Protein, UAD 1+ (Negative)
[2025-01-18 07:26] LABS: Amphetamine Screen, Urine Neg (NEGATIVE); Barbiturate Scree,Urine Neg (NEGATIVE); Benzodiazephine Screen, Urine Neg (NEGATIVE); Cannabinoid Screen, Urine Neg (NEGATIVE); Cocaine Screen, Urine Neg (NEGATIVE); Opiate Scree,Urine Pos (NEGATIVE); Phencyclidine Screen, Urine Neg (NEGATIVE)
[2025-01-18] MEDS: SODIUM CHLORIDE 0.9% 1,000 ML IV SCH ×2 (08:35→16:15)
[2025-01-18] MEDS: ENOXAPARIN SOD 40 MG/0.4 ML SYRINGE SC SCH (08:35)
[2025-01-18] MEDS: ONDANSETRON HCL 4 MG/2 ML VIAL IV PRN (08:44)
[2025-01-18 08:55] VITALS: BP 121/73; PULSE 88; RESP 18; TEMP 98.6; O2SAT 97
[2025-01-18] MEDS ORDERED: MORPHINE SULFATE INJ 2 MG/ml SYRG IV PRN (11:00)
[2025-01-18] MEDS: MORPHINE SULFATE 4 MG/ML SYR/VIAL IV PRN (11:21)
[2025-01-18 12:31] VITALS: BP 115/75; PULSE 102; RESP 20; TEMP 98.3; O2SAT 96
[2025-01-18] MEDS: GASTROGRAFIN 120 ML SOL ONE (13:45)
--- NOTE | 2025-01-18 14:02 | DVHINCON2 ---
GI Consult Consult Note GI consult note Date of Consultation: 01/18/2025 Chief Complaint: Metastatic cancer with neuroendocrine tumor resection, abdominal pain Referring Physician: Dequan MAZARIEGOS H&P: 54-year-old female with past medical history of neuroendocrine tumor resection undergoing chemo at [facility]. Patient admitted with complains of cramping abdominal pain which is mostly on the upper side and radiates to her back and also complaining of nausea and vomiting following her chemo on Thursday at [facility]. Last bowel movement one day ago. Patient denies hematemesis, melena, red blood in stool. Past Medical History: Neuroendocrine tumor on chemo, dyslipidemia, endometriosis Past Surgical History: Right hemicolectomy, multiple laparoscopies due to endometriosis, hysterectomy with left oophorectomy Social History: NO smoking, drinking ETOH and use of illegal drugs. Family History: Noncontributory Review of Systems: Constitutional: no fever, chill, weight loss HEENT: no eye pain, no hearing loss, no oral lesion, no scleral icterus Heart: no chest pain, no chest pressure Lung: no cough, no dyspnea with exertion Abdomen: see HPI Physical exam: General: NAD, AAOX3 Chest: lung pedersen clear to auscultation Heart: RRR, no murmur Abdomen: My-distended, + upper abdominal tenderness to palpation, +BS Labs: Labs Test 01/18/25 07:55 01/18/25 06:30 01/18/25 05:55 01/18/25 05:50 Range/Units Lactic Acid Level 1.9 0.4-2.0 mmol/L Troponin I High Sensitivity < 3 L </=34 ng/L Urine Color Yellow Yellow Urine Clarity Clear Clear Urine pH 5.5 5.0-9.0 Urine Specific [place] > 1.050 H 1.001-1.035 Urine Protein 1+ H Negative Urine Ketones 3+ H Negative Urine Blood Negative Negative /uL Urine Nitrite Negative Negative Urine Bilirubin Negative Negative Urine Urobilinogen Normal Negative mg/dL Urine Leukocyte Esterase Negative Negative /uL Urine RBC 5 0 - 4 /hpf Urine Microscopic WBC 21 H 0-5 /HPF Urine Squamous Epithelial Cells Mod <5 /hpf Urine Bacteria None seen None Seen /hpf Urine Mucus Few None Seen Urine Glucose Normal Normal mg/dL Urine Opiates Screen Pos NEGATIVE Urine Fentanyl Screen Neg NEGATIVE Urine Barbiturates Screen Neg NEGATIVE Urine Phencyclidine Screen Neg NEGATIVE Urine Amphetamines Screen Neg NEGATIVE Urine Benzodiazepines Screen Neg NEGATIVE Urine Cocaine Screen Neg NEGATIVE Urine Cannabinoids Screen Neg NEGATIVE Blood Gas Specimen Type Arterial Blood Gas Sample Site Right radial Blood Gas Patient Temperature 37.0 Arterial Blood Date Drawn Arterial Blood pH 7.315 L 7.350-7.450 Arterial Blood Partial Pressure CO2 32.4 32.0-45.0 mmHg Arterial Blood Partial Pressure O2 80.6 L 83.0-108.0 mmHg Arterial Blood HCO3 16.1 L 21.0-28.0 mmol/L Arterial Blood Oxygen Saturation 95.2 94.0-98.0 % Arterial Blood Base Excess -8.8 L -2.0-3.0 mmol/L Arterial Blood Oxyhemoglobin 93.8 L 94.0-98.0 % Arterial Blood Carboxyhemoglobin 0.9 0.5-1.5 % Arterial Blood Methemoglobin 0.6 0.0-1.5 % Arterial Blood Deoxyhemoglobin 4.7 0.0-5.0 % Kaushal Test Yes Blood Gas Total Hemoglobin 15.20 12.0-16.0 g/dL Blood Gas Liter Flow 0.00 Blood Gas Modality Room air FiO2 % 21.0 Prothrombin Time 12.0 H 9.3-11.8 sec Prothrombin Time INR 1.15 0.9-1.15 Activated Partial Thromboplast Time 29.4 24.5-34.5 SEC Test 01/18/25 04:06 Range/Units White Blood Count 9.1 4.4-10.8 10^3/uL Red Blood Count 5.31 H 4.0-5.20 10^6/uL Hemoglobin 16.5 H 12.2-16.2 g/dL Hematocrit 48.7 H 36.0-46.0 % Mean Corpuscular Volume 91.7 80.0-100.0 fL Mean Corpuscular Hemoglobin 31.1 28.0-32.0 pg Mean Corpuscular Hemoglobin Concent 34.0 32.0-36.0 g/dL Red Cell Distribution Width 12.7 11.8-14.3 % Platelet Count 340 140-450 10^3/uL Mean Platelet Volume 9.2 6.9-10.8 fL Neutrophils (%) (Auto) 83.1 H 37.0-80.0 % Lymphocytes (%) (Auto) 5.3 L 10.0-50.0 % Monocytes (%) (Auto) 11.4 0.0-12.0 % Eosinophils (%) (Auto) 0.0 0.0-7.0 % Basophils (%) (Auto) 0.2 0.0-2.0 % Neutrophils # (Auto) 7.6 1.6-8.6 10 ^3/uL Lymphocytes # (Auto) 0.5 0.4-5.4 10 ^3/uL Monocytes # (Auto) 1.0 0-1.3 10 ^3/uL Eosinophils # (Auto) 0 0-0.8 10 ^3/uL Basophils # (Auto) 0 0-0.2 10 ^3/uL Nucleated Red Blood Cells 0.1 % Sodium Level 137 136-145 mmol/L Potassium Level 4.3 3.5-5.1 mmol/L Chloride Level 102 98-107 mmol/L Carbon Dioxide Level 18 L 20-31 mmol/L Anion Gap 17 H 5-15 Blood Urea Nitrogen 22 9-23 mg/dL Creatinine 0.94 0.550-1.02 mg/dL Glomerular Filtration Rate Calc 73 >90 mL/min BUN/Creatinine Ratio 23.4 H 10.0-20.0 Serum Glucose 171 H 74-106 mg/dL Calcium Level 10.0 8.7-10.4 mg/dL Total Bilirubin 0.6 0.2-1.0 mg/dL Aspartate Amino Transferase (AST) 20 13-40 U/L Alanine Aminotransferase (ALT) 26 7-40 U/L Alkaline Phosphatase 155 H 46-116 U/L Total Protein 8.6 H 5.7-8.2 g/dL Albumin 4.8 3.2-4.8 g/dL Lipase 24 12-53 U/L Imaging: CT abdomen pelvis IMPRESSION: 1. Moderately distended predominantly fluid-filled segments of small bowel exhibiting enhancing wall thickening suggestive of sequelae of enteritis. 2. No definite evidence of obstruction. 3. Progressive interval increase in at least 2 relatively well-circumscribed dominant hepatic mass lesions measuring 3.1 cm within the left lobe and 2.3 cm within the right lobe. 4. Posteriorly adjacent to the left hepatic lobe mass lesion is a new 2.9 cm hypoattenuating mass and there are several other scattered smaller hypodense lesions throughout the liver, consistent with progressive metastatic disease. Assessment: Intractable nausea vomiting status post chemotherapy Abdominal pain Neuroendocrine tumor with possible Mets to liver Status post right hemicolectomy Plan: Discussed with Dr. Germain Small-bowel series with Gastrografin Surgical consult Possible NG-tube recommended if needed We will continue to monitor patient Plan discussed with patient, spouse at bedside and RN Thank you for this consult Date of Service: Jan 18, 2025 Billing Provider: CHELA JEROME Common Visit Codes: CONSULT ONLY Consultation Codes: [id number] CONSULT <60MIN CHELA JEROME Jan 18, 2025 14:02
[2025-01-18 16:00] VITALS: BP 122/87; PULSE 102; RESP 18; TEMP 98.5; O2SAT 96
[2025-01-18] MEDS ORDERED: diphenhydrAMINE HCL 50 MG/1 ML VL IV PRN (16:15)
--- NOTE | 2025-01-18 16:19 | DVHPN2 ---
Subjective Patient states that her abdominal pain has improved. Reviewed: Care Plan, H&P, Labs, Medications Changes from previous H/P or p: No Changes General: Per HPI Objective Vitals Vital Signs Date Time Temp Pulse Resp B/P (MAP) Pulse Ox O2 Delivery O2 Flow Rate FiO2 01/18/25 15:18 116 17 120/81 01/18/25 12:31 98.3 96 98.3 01/18/25 09:36 Room Air* 0 21 General Appearance: Alert, Oriented X3, Cooperative, mild distress HEENT: Atraumatic, PERRLA Lungs: Clear to auscultation, Normal air movement Cardiovascular: Normal S1, Normal S2 Abdomen: Soft, No tenderness, No hepatospenomegaly, Other (Hypoactive bowel sounds) Genitourinary: No Apparent Abnormalities Musculoskeletal: Normal sensory function, Normal motor function Neuro: Normal gait, Normal speech Skin: Dry, Intact Psych/Mental Status: Mental status NL, Mood NL Medications Current Medications Medications Dose Ordered Sig/Pedro Pablo Route Start Time Stop Time Status Last Admin Dose Admin Sodium Chloride 10 ml Q8HR IV 01/18/25 06:00 01/18/25 15:07 10 ML Ondansetron HCl 4 mg Q4HP PRN IV 01/18/25 05:30 01/18/25 08:44 4 MG Enoxaparin Sodium 40 mg DAILY SC 01/18/25 10:00 01/18/25 08:35 40 MG Acetaminophen 650 mg Q6HP PRN PO 01/18/25 05:30 Metronidazole 100 ml @ 100 mls/hr Q8HR IV 01/18/25 14:00 01/18/25 15:07 100 MLS/HR Morphine Sulfate 2 mg Q3HPRN PRN IV 01/18/25 11:15 01/18/25 15:18 2 MG Sodium Chloride 1,000 ml @ 125 mls/hr Q8H IV 01/18/25 16:15 Diphenhydramine HCl 25 mg Q4HP PRN IV 01/18/25 16:15 Laboratory Results Laboratory Tests 01/18/25 04:06 Chemistry Test 01/18/25 04:06 Albumin 4.8 g/dL (3.2-4.8) Calcium Level 10.0 mg/dL (8.7-10.4) Total Protein 8.6 g/dL (5.7-8.2) H Coagulation Test 01/18/25 05:50 Prothrombin Time 12.0 sec (9.3-11.8) H Prothrombin Time INR 1.15 (0.9-1.15) Activated Partial Thromboplast Time 29.4 SEC (24.5-34.5) Lipid panel Test 01/18/25 04:06 Lipase 24 U/L (12-53) LFT Test 01/18/25 04:06 Alanine Aminotransferase (ALT) 26 U/L (7-40) Alkaline Phosphatase 155 U/L (46-116) H Aspartate Amino Transferase (AST) 20 U/L (13-40) Total Bilirubin 0.6 mg/dL (0.2-1.0) Urinalysis Test 01/18/25 06:30 Urine Color Yellow (Yellow) Urine Clarity Clear (Clear) Urine pH 5.5 (5.0-9.0) Urine Specific [place] > 1.050 (1.001-1.035) Urine Protein 1+ (Negative) H Urine Ketones 3+ (Negative) H Urine Blood Negative /uL (Negative) Urine Nitrite Negative (Negative) Urine Bilirubin Negative (Negative) Urine Urobilinogen Normal mg/dL (Negative) Urine Leukocyte Esterase Negative /uL (Negative) Urine RBC 5 /hpf (0 - 4) Urine Microscopic WBC 21 /HPF (0-5) H Urine Squamous Epithelial Cells Mod /hpf (<5) Urine Bacteria None seen /hpf (None Seen) Urine Mucus Few (None Seen) Urine Glucose Normal mg/dL (Normal) Blood Gas Results Test 01/18/25 05:55 Arterial Blood pH 7.315 (7.350-7.450) FiO2 % 21.0 Labs and/or images reviewed: Labs reviewed by me, Image(s) reviewed by me Assessment/Plan Assessment/Plan Impression: -questionable ileus versus gastroparesis -rule out bowel obstruction -neuroendocrine tumor with metastasis -dyslipidemia Plan: -NPO -continue IV hydration -start IV Flagyl -GI consultation -small-bowel series, pending -pain management -PPI -repeat labs in a.m. Total time spent with patient discussing and formulating plan of care: 35 minutes. This medical document was created using an electronic medical record system with [employer] dictation system. Although this document has been carefully reviewed, there may still be some phonetic and typographical errors. These areas are purely typographical due to imperfections of the software programs, and do not reflect any compromise in the patient's medical care. Plan discussed with: Patient, Other (RN) My Orders Orders - SAW RUIZ NP Procedure Category Date Status Time Metronidazole PHA 01/18/25 In Process 500mg/100ml (Flagyl 14:00 * [facility] [employer] CONS 01/18/25 Transmitted 10:54 Morphine Sulfate PHA 01/18/25 In Process Injection 11:15 Sodium Chloride 0.9% PHA 01/18/25 In Process 16:15 Diphenhydramine PHA 01/18/25 In Process Injection (Benadryl 16:15 Date of Service: Jan 18, 2025 Billing Provider: SAW RUIZ NP Common Visit Codes: [id number] INP/OBS CARE(HIGH) SAW RUIZ NP Jan 18, 2025 16:19
[2025-01-18 20:00] VITALS: PULSE 99; RESP 18; O2SAT 96
[2025-01-18 21:00] VITALS: BP 128/80; PULSE 99; RESP 18; TEMP 99.1; O2SAT 96
--- NOTE | 2025-01-18 21:16 | DVH ---
Procedure: XY SMALL BOWEL SERIES-W GASTROGRA Reason for study/Clinical History: ABD PAIN Comparison Study: None Technique: Single contrast small bowel series performed. FINDINGS/IMPRESSION: At 4-1/2 hours, significant retention of contrast within the proximal small bowel loops dilated above normal limits at 3.2 cm. Mild stool burden within the ascending colon. Contrast within the bladder. Overall appearance of possible small bowel ileus versus less likely partial small bowel obstruction. Recommend follow-up KUB in 18-24 hours
[2025-01-19] VITALS (8 sets, daily range): BP systolic 113–136; BP diastolic 59–90; PULSE 84–104; RESP 16–20; TEMP 98–99.2; O2SAT 96–98
[2025-01-19 05:22] LABS: Hematocrit 44.5 % (36.0-46.0); Hemoglobin 15.1 g/dL (12.2-16.2); Mean Corpuscular Hemoglobin 31.0 pg (28.0-32.0); Mean Corpuscular Volume 91.3 fL (80.0-100.0)
[2025-01-19 05:39] LABS: Alanine Aminotransferase 33 U/L (7-40); Albumin 4.0 g/dL (3.2-4.8); Alkaline Phosphatase 115 U/L (46-116); Anion Gap 13 (5-15); BUN/Creatinine Ratio 22.8 (10.0-20.0); Blood Urea Nitrogen 18 mg/dL (9-23); Calcium 9.1 mg/dL (8.7-10.4); Carbon Dioxide 21 mmol/L (20-31); Potassium 3.8 mmol/L (3.5-5.1); Sodium 142 mmol/L (136-145); Total Protein 7.3 g/dL (5.7-8.2)
[2025-01-19 05:40] LABS: Bilirubin, Total 0.4 mg/dL (0.2-1.0)
[2025-01-19 05:42] LABS: Chloride 108 mmol/L (98-107); Glucose 140 mg/dL (74-106)
[2025-01-19 06:46] LABS: Total Cells Counted 100.0 (100)
--- NOTE | 2025-01-19 09:28 | DVH ---
Date: 01/19/2025 08:23 AM Examination: XY KUB ABDOMEN SINGLE VIEW History: small bowel follow up Comparison: US ABDOMEN LIMITED on DOS: 10/29/24, CT CT AB PEL WO CON-NO ORAL OR IV on DOS: 10/28/24, US ABDOMEN COMPLETE SONOGRAM on DOS: 10/18/24, CT CT AB PEL WO CON-NO ORAL OR IV on DOS: 09/10/24 TECHNIQUE: Frontal views of the abdomen was obtained. FINDINGS: Bowel gas pattern is unremarkable. The lung bases are unremarkable. No acute osseous abnormality identified. IMPRESSION: Nonobstructive bowel gas pattern. Contrast seen in the colon.
--- NOTE | 2025-01-19 11:56 | DVHPN2 ---
Subjective Patient states that her abdominal pain has improved. Reviewed: Care Plan, H&P, Labs, Medications, Previous Orders Changes from previous H/P or p: No Changes General: Per HPI Objective Vitals Vital Signs Date Time Temp Pulse Resp B/P (MAP) Pulse Ox O2 Delivery O2 Flow Rate FiO2 01/19/25 09:00 98.0 97 17 134/77 (96) 97 98.0 01/19/25 08:00 Room Air* 0 21 Intake/Output Intake and Output 01/19/25 07:00 Intake Total 600 ml Balance 600 ml Intake Oral 0 ml IV Total 600 ml # Voids 2 General Appearance: Alert, Oriented X3, Cooperative, mild distress HEENT: Atraumatic, PERRLA Lungs: Clear to auscultation, Normal air movement Cardiovascular: Normal S1, Normal S2 Abdomen: Soft, No tenderness, No hepatospenomegaly, Other (Hypoactive bowel sounds) Genitourinary: No Apparent Abnormalities Musculoskeletal: Normal sensory function, Normal motor function Neuro: Normal gait, Normal speech Skin: Dry, Intact Psych/Mental Status: Mental status NL, Mood NL Medications Current Medications Medications Dose Ordered Sig/Pedro Pablo Route Start Time Stop Time Status Last Admin Dose Admin Sodium Chloride 10 ml Q8HR IV 01/18/25 06:00 01/19/25 06:00 10 ML Ondansetron HCl 4 mg Q4HP PRN IV 01/18/25 05:30 01/18/25 17:54 4 MG Enoxaparin Sodium 40 mg DAILY SC 01/18/25 10:00 01/19/25 09:37 40 MG Acetaminophen 650 mg Q6HP PRN PO 01/18/25 05:30 Metronidazole 100 ml @ 100 mls/hr Q8HR IV 01/18/25 14:00 01/19/25 05:49 100 MLS/HR Morphine Sulfate 2 mg Q3HPRN PRN IV 01/18/25 11:15 01/19/25 05:05 2 MG Sodium Chloride 1,000 ml @ 125 mls/hr Q8H IV 01/18/25 16:15 01/19/25 08:29 125 MLS/HR Diphenhydramine HCl 25 mg Q4HP PRN IV 01/18/25 16:15 Laboratory Results Laboratory Tests 01/19/25 04:46 Chemistry Test 01/19/25 04:46 Albumin 4.0 g/dL (3.2-4.8) Calcium Level 9.1 mg/dL (8.7-10.4) Total Protein 7.3 g/dL (5.7-8.2) LFT Test 01/19/25 04:46 Alanine Aminotransferase (ALT) 33 U/L (7-40) Alkaline Phosphatase 115 U/L (46-116) Aspartate Amino Transferase (AST) 19 U/L (13-40) Total Bilirubin 0.4 mg/dL (0.2-1.0) Urinalysis Test 01/18/25 06:30 Urine Color Yellow (Yellow) Urine Clarity Clear (Clear) Urine pH 5.5 (5.0-9.0) Urine Specific [place] > 1.050 (1.001-1.035) Urine Protein 1+ (Negative) H Urine Ketones 3+ (Negative) H Urine Blood Negative /uL (Negative) Urine Nitrite Negative (Negative) Urine Bilirubin Negative (Negative) Urine Urobilinogen Normal mg/dL (Negative) Urine Leukocyte Esterase Negative /uL (Negative) Urine RBC 5 /hpf (0 - 4) Urine Microscopic WBC 21 /HPF (0-5) H Urine Squamous Epithelial Cells Mod /hpf (<5) Urine Bacteria None seen /hpf (None Seen) Urine Mucus Few (None Seen) Urine Glucose Normal mg/dL (Normal) Labs and/or images reviewed: Labs reviewed by me, Image(s) reviewed by me Assessment/Plan Assessment/Plan Impression: -questionable ileus versus gastroparesis -rule out bowel obstruction -neuroendocrine tumor with metastasis -dyslipidemia Plan: Events: Patient has small-bowel follow-through. Noted slow transition with stasis in small-bowel. Today, repeat KUB has Gastrografin and colon. Patient has had multiple bowel movements. Abdominal pain has resolved. -advanced to full liquid diet -continue IV hydration -start IV Flagyl -GI consultation -pain management -PPI Total time spent with patient discussing and formulating plan of care: 35 minutes. This medical document was created using an electronic medical record system with [employer] system. Although this document has been carefully reviewed, there may still be some phonetic and typographical errors. These areas are purely typographical due to imperfections of the software programs, and do not reflect any compromise in the patient's medical care. Plan discussed with: Patient, Other (RN) My Orders Orders - SAW RUIZ NP Procedure Category Date Status Time Sodium Chloride 0.9% PHA 01/18/25 In Process 16:15 Diphenhydramine PHA 01/18/25 In Process Injection (Benadryl 16:15 Full Liq Diet DIET 01/19/25 Transmitted Lunch Date of Service: Jan 19, 2025 Billing Provider: SAW RUIZ NP Common Visit Codes: [id number] INP/OBS CARE(HIGH) SAW RUIZ NP Jan 19, 2025 11:56
--- NOTE | 2025-01-19 13:28 | DVHPN2 ---
Subjective Patient admits to feeling better Decreased abdominal pain Able to tolerate diet No nausea or vomiting Reviewed: Care Plan, H&P, Labs, Medications, Previous Orders Changes from previous H/P or p: No Changes General: Per HPI Objective Vitals Vital Signs Date Time Temp Pulse Resp B/P (MAP) Pulse Ox O2 Delivery O2 Flow Rate FiO2 01/19/25 12:31 99.2 99 18 113/76 (88) 97 99.2 01/19/25 08:00 Room Air* 0 21 Intake/Output Intake and Output 01/19/25 07:00 Intake Total 600 ml Balance 600 ml Intake Oral 0 ml IV Total 600 ml # Voids 2 General Appearance: Alert, Oriented X3, Cooperative, mild distress HEENT: Atraumatic, PERRLA Lungs: Clear to auscultation, Normal air movement Cardiovascular: Normal S1, Normal S2 Abdomen: Soft, No tenderness, No hepatospenomegaly, Other (Hypoactive bowel sounds) Medications Current Medications Medications Dose Ordered Sig/Pedro Pablo Route Start Time Stop Time Status Last Admin Dose Admin Sodium Chloride 10 ml Q8HR IV 01/18/25 06:00 01/19/25 06:00 10 ML Ondansetron HCl 4 mg Q4HP PRN IV 01/18/25 05:30 01/18/25 17:54 4 MG Enoxaparin Sodium 40 mg DAILY SC 01/18/25 10:00 01/19/25 09:37 40 MG Acetaminophen 650 mg Q6HP PRN PO 01/18/25 05:30 Metronidazole 100 ml @ 100 mls/hr Q8HR IV 01/18/25 14:00 01/19/25 05:49 100 MLS/HR Morphine Sulfate 2 mg Q3HPRN PRN IV 01/18/25 11:15 01/19/25 05:05 2 MG Sodium Chloride 1,000 ml @ 125 mls/hr Q8H IV 01/18/25 16:15 01/19/25 08:29 125 MLS/HR Diphenhydramine HCl 25 mg Q4HP PRN IV 01/18/25 16:15 Laboratory Results Laboratory Tests 01/19/25 04:46 Chemistry Test 01/19/25 04:46 Albumin 4.0 g/dL (3.2-4.8) Calcium Level 9.1 mg/dL (8.7-10.4) Total Protein 7.3 g/dL (5.7-8.2) LFT Test 01/19/25 04:46 Alanine Aminotransferase (ALT) 33 U/L (7-40) Alkaline Phosphatase 115 U/L (46-116) Aspartate Amino Transferase (AST) 19 U/L (13-40) Total Bilirubin 0.4 mg/dL (0.2-1.0) Urinalysis Test 01/18/25 06:30 Urine Color Yellow (Yellow) Urine Clarity Clear (Clear) Urine pH 5.5 (5.0-9.0) Urine Specific [place] > 1.050 (1.001-1.035) Urine Protein 1+ (Negative) H Urine Ketones 3+ (Negative) H Urine Blood Negative /uL (Negative) Urine Nitrite Negative (Negative) Urine Bilirubin Negative (Negative) Urine Urobilinogen Normal mg/dL (Negative) Urine Leukocyte Esterase Negative /uL (Negative) Urine RBC 5 /hpf (0 - 4) Urine Microscopic WBC 21 /HPF (0-5) H Urine Squamous Epithelial Cells Mod /hpf (<5) Urine Bacteria None seen /hpf (None Seen) Urine Mucus Few (None Seen) Urine Glucose Normal mg/dL (Normal) Labs and/or images reviewed: Labs reviewed by me, Image(s) reviewed by me Assessment/Plan Assessment/Plan Intractable nausea vomiting status post chemotherapy improving Abdominal pain improving Neuroendocrine tumor with possible Mets to liver Status post right hemicolectomy Plan: Discussed with Dr. Germain Full liquid diet advance to soft as tolerated Discussed extensively high-fiber diet and recommended use of Metamucil as needed MiraLax and probiotics Outpatient GI follow-up recommended Plan discussed with: Patient, Spouse, Other (RN) My Orders Orders - CHELA JEROME Procedure Category Date Status Time Small Bowel Series-W XY 01/18/25 Resulted Gastrogra 13:35 Kub Abdomen Single XY 01/19/25 Resulted View 06:00 Date of Service: Jan 19, 2025 Billing Provider: CHELA JEROME Common Visit Codes: [id number] INP/OBS CARE(HIGH) CHELA JEROME Jan 19, 2025 13:28
[2025-01-19] MEDS: ACETAMINOPHEN 325 MG TAB PO PRN (19:21)
[2025-01-20] VITALS (7 sets, daily range): BP systolic 124–131; BP diastolic 81–85; PULSE 86–102; RESP 16–20; TEMP 98.1–99.1; O2SAT 87–98
--- NOTE | 2025-01-20 09:39 | DVHINCON2 ---
Date of service: Jan 20, 2025 Family History: FH: hypertension G8 FATHER FH: stroke G8 FATHER Allergies: Coded Allergies: NO KNOWN ALLERGIES (Unverified , 06/06/16) Home Meds Active Scripts Senna (Senokot Extra Strength) 17.2 Mg Tab, 17.2 MG PO QPM, #20 TAB Prov:JONAH PFEIFFER MD 11/08/24 Naloxone HCl (Narcan) 4 Mg/0.1 Ml Spr, 4 MG NA Q5MINP PRN, #1 SPRAY Prov:JONAH PFEIFFER MD 11/08/24 Hydrocodone-Acetaminophen (Hydrocodone Bitartrate/AC 5-325 mg) 1 Tab Tab, 1 TAB PO Q8HPRN PRN, #14 TAB Prov:JONAH PFEIFFER MD 11/08/24 Reported Medications Alprazolam (Xanax) 2 Mg Tab, 5 MG PO PRN, TAB 10/29/24 Cholecalciferol (VITAMIN D3) 2,000 Unit Tab, 1 TAB PO DAILY, #90 TAB 3 Refills 09/07/24 Calcium Amino Acid Chelate (Calcium) 280 Mg Tab, 280 MG PO, TAB 09/07/24 Magnesium Oxide (MAGNESIUM OXIDE) 400 Mg Tab, 1 TAB PO DAILY, #90 TAB 3 Refills 09/07/24 Hydroxyzine Hcl (Hydroxyzine Hcl) 10 Mg/5 Ml Syp, 5 ML PO PRN, #150 ML 09/07/24 Oxybutynin Chloride (Gelnique) 10 % Gel, 1 PACK TOP DAILY, #90 PACK 3 Refills 09/07/24 Simvastatin (Simvastatin) 10 Mg Tab, 10 MG PO DAILY for 30 Days, MG 06/07/16 Vital Signs Vital Signs Date Time Temp Pulse Resp B/P (MAP) Pulse Ox O2 Delivery O2 Flow Rate FiO2 01/20/25 08:33 98.6 102 18 125/83 (97) 97 98.6 01/20/25 08:02 Room Air* 0 21 Labs/Diagnostic Data Labs Test 01/19/25 04:46 01/18/25 07:55 01/18/25 06:30 01/18/25 05:55 Range/Units White Blood Count 5.5 # 4.4-10.8 10^3/uL Red Blood Count 4.88 4.0-5.20 10^6/uL Hemoglobin 15.1 12.2-16.2 g/dL Hematocrit 44.5 36.0-46.0 % Mean Corpuscular Volume 91.3 80.0-100.0 fL Mean Corpuscular Hemoglobin 31.0 28.0-32.0 pg Mean Corpuscular Hemoglobin Concent 33.9 32.0-36.0 g/dL Red Cell Distribution Width 13.1 11.8-14.3 % Platelet Count 302 140-450 10^3/uL Mean Platelet Volume 8.9 6.9-10.8 fL Neutrophils (%) (Auto) 37.0-80.0 % Lymphocytes (%) (Auto) 10.0-50.0 % Monocytes (%) (Auto) 0.0-12.0 % Basophils (%) (Auto) 0.0-2.0 % Neutrophils # (Auto) 1.6-8.6 10 ^3/uL Lymphocytes # (Auto) 0.4-5.4 10 ^3/uL Monocytes # (Auto) 0-1.3 10 ^3/uL Differential Total Cells Counted 100.0 100 Neutrophils % (Manual) 29 L 37.0-80.0 Band Neutrophils % (Manual) 31 Lymphocytes % (Manual) 19 10.0-50.0 Monocytes % (Manual) 17 H 0-12 Eosinophils % (Manual) 0 0-7 Basophils % (Manual) 0 0.0-2.0 Metamyelocytes % (manual) 4 Myelocytes % (Manual) 0 Promyelocytes % (Manual) 0 Blast Cells % (Manual) 0 Reactive Lymphocytes 0 Platelet Estimate Adequate Sodium Level 142 # 136-145 mmol/L Potassium Level 3.8 3.5-5.1 mmol/L Chloride Level 108 H 98-107 mmol/L Carbon Dioxide Level 21 20-31 mmol/L Anion Gap 13 5-15 Blood Urea Nitrogen 18 9-23 mg/dL Creatinine 0.79 0.550-1.02 mg/dL Glomerular Filtration Rate Calc 90 >90 mL/min BUN/Creatinine Ratio 22.8 H 10.0-20.0 Serum Glucose 140 H 74-106 mg/dL Calcium Level 9.1 8.7-10.4 mg/dL Total Bilirubin 0.4 0.2-1.0 mg/dL Aspartate Amino Transferase (AST) 19 13-40 U/L Alanine Aminotransferase (ALT) 33 7-40 U/L Alkaline Phosphatase 115 46-116 U/L Total Protein 7.3 5.7-8.2 g/dL Albumin 4.0 3.2-4.8 g/dL Lactic Acid Level 1.9 0.4-2.0 mmol/L Troponin I High Sensitivity < 3 L </=34 ng/L Urine Color Yellow Yellow Urine Clarity Clear Clear Urine pH 5.5 5.0-9.0 Urine Specific [place] > 1.050 H 1.001-1.035 Urine Protein 1+ H Negative Urine Ketones 3+ H Negative Urine Blood Negative Negative /uL Urine Nitrite Negative Negative Urine Bilirubin Negative Negative Urine Urobilinogen Normal Negative mg/dL Urine Leukocyte Esterase Negative Negative /uL Urine RBC 5 0 - 4 /hpf Urine Microscopic WBC 21 H 0-5 /HPF Urine Squamous Epithelial Cells Mod <5 /hpf Urine Bacteria None seen None Seen /hpf Urine Mucus Few None Seen Urine Glucose Normal Normal mg/dL Urine Opiates Screen Pos NEGATIVE Urine Fentanyl Screen Neg NEGATIVE Urine Barbiturates Screen Neg NEGATIVE Urine Phencyclidine Screen Neg NEGATIVE Urine Amphetamines Screen Neg NEGATIVE Urine Benzodiazepines Screen Neg NEGATIVE Urine Cocaine Screen Neg NEGATIVE Urine Cannabinoids Screen Neg NEGATIVE Blood Gas Specimen Type Arterial Blood Gas Sample Site Right radial Blood Gas Patient Temperature 37.0 Arterial Blood Date Drawn [id number] Arterial Blood pH 7.315 L 7.350-7.450 Arterial Blood Partial Pressure CO2 32.4 32.0-45.0 mmHg Arterial Blood Partial Pressure O2 80.6 L 83.0-108.0 mmHg Arterial Blood HCO3 16.1 L 21.0-28.0 mmol/L Arterial Blood Oxygen Saturation 95.2 94.0-98.0 % Arterial Blood Base Excess -8.8 L -2.0-3.0 mmol/L Arterial Blood Oxyhemoglobin 93.8 L 94.0-98.0 % Arterial Blood Carboxyhemoglobin 0.9 0.5-1.5 % Arterial Blood Methemoglobin 0.6 0.0-1.5 % Arterial Blood Deoxyhemoglobin 4.7 0.0-5.0 % Kaushal Test Yes Blood Gas Total Hemoglobin 15.20 12.0-16.0 g/dL Blood Gas Liter Flow 0.00 Blood Gas Modality Room air FiO2 % 21.0 Test 01/18/25 05:50 01/18/25 04:06 Range/Units Prothrombin Time 12.0 H 9.3-11.8 sec Prothrombin Time INR 1.15 0.9-1.15 Activated Partial Thromboplast Time 29.4 24.5-34.5 SEC Eosinophils (%) (Auto) 0.0 0.0-7.0 % Eosinophils # (Auto) 0 0-0.8 10 ^3/uL Basophils # (Auto) 0 0-0.2 10 ^3/uL Nucleated Red Blood Cells 0.1 % Lipase 24 12-53 U/L Assessment patient with metastatic neuroendocrine cancer undergoing treatment at [facility], presented here with severe nausea,abdominal pain and vomiting, imaging consistent with ileus,now resolving, i believe her present illness is dut to side effects of hormonal/chemotherapy treatment, no indication for surgical intervention, lengthy conversation about her illness and treatments.all questions answered Plan discussed with: Patient HERMILO GIRON MD Jan 20, 2025 09:39
--- NOTE | 2025-01-20 12:35 | DVHPN2 ---
Subjective Patient reporting intermittent abdominal pain, recurrent bloating of abdomen, as well as several bouts of nausea vomiting today and persistent diarrhea. Reviewed: Care Plan, H&P, Labs, Medications, Previous Orders Changes from previous H/P or p: No Changes General: Per HPI Gastrointestinal: Nausea, Vomiting, Abdominal Pain, Diarrhea Objective Vitals Vital Signs Date Time Temp Pulse Resp B/P (MAP) Pulse Ox O2 Delivery O2 Flow Rate FiO2 01/20/25 08:33 98.6 102 18 125/83 (97) 97 98.6 01/20/25 08:02 Room Air* 0 21 Intake/Output Intake and Output 01/20/25 07:00 Intake Total 900 ml Balance 900 ml Intake Oral 800 ml IV Total 100 ml # Voids 16 # Bowel Movements 16 General Appearance: Alert, Oriented X3, Cooperative, mild distress HEENT: Atraumatic, PERRLA Lungs: Clear to auscultation, Normal air movement Cardiovascular: Normal S1, Normal S2 Abdomen: Soft, No tenderness, No hepatospenomegaly, Other (Hypoactive bowel sounds) Genitourinary: No Apparent Abnormalities Skin: Dry, Intact Psych/Mental Status: Mental status NL, Mood NL Medications Current Medications Medications Dose Ordered Sig/Pedro Pablo Route Start Time Stop Time Status Last Admin Dose Admin Sodium Chloride 10 ml Q8HR IV 01/18/25 06:00 01/20/25 05:57 10 ML Ondansetron HCl 4 mg Q4HP PRN IV 01/18/25 05:30 01/20/25 04:21 4 MG Enoxaparin Sodium 40 mg DAILY SC 01/18/25 10:00 01/19/25 09:37 40 MG Acetaminophen 650 mg Q6HP PRN PO 01/18/25 05:30 01/19/25 19:21 650 MG Morphine Sulfate 2 mg Q3HPRN PRN IV 01/18/25 11:15 01/19/25 05:05 2 MG Diphenhydramine HCl 25 mg Q4HP PRN IV 01/18/25 16:15 Sodium Chloride 1,000 ml @ 75 mls/hr [id number] IV 01/20/25 12:30 Laboratory Results Laboratory Tests 01/19/25 04:46 Urinalysis Test 01/18/25 06:30 Urine Color Yellow (Yellow) Urine Clarity Clear (Clear) Urine pH 5.5 (5.0-9.0) Urine Specific [place] > 1.050 (1.001-1.035) Urine Protein 1+ (Negative) H Urine Ketones 3+ (Negative) H Urine Blood Negative /uL (Negative) Urine Nitrite Negative (Negative) Urine Bilirubin Negative (Negative) Urine Urobilinogen Normal mg/dL (Negative) Urine Leukocyte Esterase Negative /uL (Negative) Urine RBC 5 /hpf (0 - 4) Urine Microscopic WBC 21 /HPF (0-5) H Urine Squamous Epithelial Cells Mod /hpf (<5) Urine Bacteria None seen /hpf (None Seen) Urine Mucus Few (None Seen) Urine Glucose Normal mg/dL (Normal) Labs and/or images reviewed: Labs reviewed by me, Image(s) reviewed by me Assessment/Plan Assessment/Plan Impression: -questionable ileus versus gastroparesis -rule out bowel obstruction -neuroendocrine tumor with metastasis -dyslipidemia Plan: Events: Patient had return of nausea and vomiting, abdominal pain with bloating, as well as persistent diarrhea. Did not tolerate regular diet. -change IV fluids to half NS 75 -repeat KUB -continue full liquid diet -GI consultation -pain management -PPI -repeat BMP and Mag Total time spent with patient discussing and formulating plan of care: 35 minutes. This medical document was created using an electronic medical record system with [employer] dictation system. Although this document has been carefully reviewed, there may still be some phonetic and typographical errors. These areas are purely typographical due to imperfections of the software programs, and do not reflect any compromise in the patient's medical care. Plan discussed with: Patient, Other (RN) My Orders Orders - SAW RUIZ NP Procedure Category Date Status Time Regular Diet DIET 01/20/25 Transmitted Lunch Kub Abdomen Single XY 01/20/25 Logged View 12:20 Sod Chl 0.45% (Sodium PHA 01/20/25 In Process Chloride 0.45% Via 12:30 Basic Metabolic Panel LAB 01/20/25 Logged 12:20 Magnesium LAB 01/20/25 Logged 12:20 Date of Service: Jan 20, 2025 Billing Provider: SAW RUIZ NP Common Visit Codes: [id number] INP/OBS CARE(HIGH) SAW RUIZ NP Jan 20, 2025 12:35
[2025-01-20] MEDS: METOCLOPRAMIDE HCL 5MG/ml INJ 2ml VIAL IV ONE (12:40)
[2025-01-20] MEDS: SOD CHL 0.45% 1,000 ML IV SCH (12:48)
[2025-01-20 13:10] LABS: Chloride 106 mmol/L (98-107); Potassium 3.7 mmol/L (3.5-5.1); Sodium 142 mmol/L (136-145)
[2025-01-20 13:11] LABS: Anion Gap 12 (5-15); Calcium 8.7 mg/dL (8.7-10.4); Carbon Dioxide 24 mmol/L (20-31)
[2025-01-20 13:16] LABS: BUN/Creatinine Ratio 21.5 (10.0-20.0); Blood Urea Nitrogen 14 mg/dL (9-23)
[2025-01-20 13:17] LABS: Glucose 109 mg/dL (74-106); Magnesium 1.8 mg/dL (1.6-2.6)
--- NOTE | 2025-01-20 14:30 | DVHPN2 ---
Subjective Patient admits abdominal distention and pain Not able to tolerate diet as well + nausea or vomiting Patient has complains of loose watery stool Reviewed: Care Plan, H&P, Labs, Medications, Previous Orders Changes from previous H/P or p: No Changes General: Per HPI Gastrointestinal: Nausea, Vomiting, Abdominal Pain, Diarrhea Objective Vitals Vital Signs Date Time Temp Pulse Resp B/P (MAP) Pulse Ox O2 Delivery O2 Flow Rate FiO2 01/20/25 13:07 99.1 93 20 124/85 (98) 96 99.1 01/20/25 08:02 Room Air* 0 21 Intake/Output Intake and Output 01/20/25 07:00 Intake Total 900 ml Balance 900 ml Intake Oral 800 ml IV Total 100 ml # Voids 16 # Bowel Movements 16 General Appearance: Alert, Oriented X3, Cooperative, mild distress Lungs: Clear to auscultation, Normal air movement Cardiovascular: Normal S1, Normal S2 Abdomen: Other (Hypoactive bowel sounds, [id number] distention,+ generalized tenderness) Medications Current Medications Medications Dose Ordered Sig/Pedro Pablo Route Start Time Stop Time Status Last Admin Dose Admin Sodium Chloride 10 ml Q8HR IV 01/18/25 06:00 01/20/25 05:57 10 ML Ondansetron HCl 4 mg Q4HP PRN IV 01/18/25 05:30 01/20/25 04:21 4 MG Enoxaparin Sodium 40 mg DAILY SC 01/18/25 10:00 01/20/25 12:40 40 MG Acetaminophen 650 mg Q6HP PRN PO 01/18/25 05:30 01/19/25 19:21 650 MG Morphine Sulfate 2 mg Q3HPRN PRN IV 01/18/25 11:15 01/19/25 05:05 2 MG Diphenhydramine HCl 25 mg Q4HP PRN IV 01/18/25 16:15 Sodium Chloride 1,000 ml @ 75 mls/hr [id number] IV 01/20/25 12:30 01/20/25 12:48 75 MLS/HR Pantoprazole Sodium 40 mg BID IV 01/20/25 22:00 Laboratory Results Laboratory Tests 01/19/25 04:46 01/20/25 12:48 Chemistry Test 01/20/25 12:48 Calcium Level 8.7 mg/dL (8.7-10.4) Magnesium Level 1.8 mg/dL (1.6-2.6) Urinalysis Test 01/18/25 06:30 Urine Color Yellow (Yellow) Urine Clarity Clear (Clear) Urine pH 5.5 (5.0-9.0) Urine Specific [place] > 1.050 (1.001-1.035) Urine Protein 1+ (Negative) H Urine Ketones 3+ (Negative) H Urine Blood Negative /uL (Negative) Urine Nitrite Negative (Negative) Urine Bilirubin Negative (Negative) Urine Urobilinogen Normal mg/dL (Negative) Urine Leukocyte Esterase Negative /uL (Negative) Urine RBC 5 /hpf (0 - 4) Urine Microscopic WBC 21 /HPF (0-5) H Urine Squamous Epithelial Cells Mod /hpf (<5) Urine Bacteria None seen /hpf (None Seen) Urine Mucus Few (None Seen) Urine Glucose Normal mg/dL (Normal) Labs and/or images reviewed: Labs reviewed by me, Image(s) reviewed by me Assessment/Plan Assessment/Plan Intractable nausea vomiting Diarrhea Abdominal pain Neuroendocrine tumor with possible Mets to liver Status post right hemicolectomy Plan: Discussed with Dr. Germain Clear liquid diet KUB Stool for bacterial culture, WBC, C diff Surgical consult recall Possible higher level of care recommended if patient's symptoms persist or worsen Plan discussed with: Patient My Orders Orders - CHELA JEROME Procedure Category Date Status Time Stool Wbc LAB 01/20/25 Verified 14:25 Date of Service: Jan 20, 2025 Billing Provider: CHELA JEROME Common Visit Codes: [id number] INP/OBS CARE(HIGH) CHELA JEROME Jan 20, 2025 14:30
--- NOTE | 2025-01-20 16:34 | DVH ---
Date: 01/20/2025 03:09 PM Examination: XY KUB ABDOMEN SINGLE VIEW History: ileus Comparison: XY KUB ABDOMEN SINGLE VIEW on DOS: 01/19/25 TECHNIQUE: Frontal views of the abdomen was obtained. FINDINGS: Bowel gas pattern is unremarkable. The lung bases are unremarkable. No acute osseous abnormality identified. IMPRESSION: 1. No acute bony fractures 2. Gas in the colon and small bowel consistent with ileus recommend follow-up study to exclude developing obstruction.
[2025-01-20] MEDS: PANTOPRAZOLE 40 MG/10 ML VIAL INJ IV SCH (21:24)
[2025-01-21 05:00] VITALS: BP 129/82; PULSE 86; RESP 18; TEMP 99.1; O2SAT 96
[2025-01-21 07:50] VITALS: BP 133/84; PULSE 95; RESP 20; TEMP 100.3; O2SAT 96
[2025-01-21 08:00] VITALS: RESP 18; O2SAT 87
[2025-01-21] MEDS ORDERED: PANTOPRAZOLE 40 MG/10 ML VIAL INJ IV SCH (10:15)
[2025-01-21] MEDS: SUCRALFATE 1 GM/10 ML ORAL SUSP PO SCH (11:05)
[2025-01-21] MEDS: PANTOPRAZOLE 40 MG TAB PO SCH (11:05)
--- NOTE | 2025-01-21 11:17 | DVHPN2 ---
Reviewed: Care Plan, H&P, Labs, Medications, Previous Orders Changes from previous H/P or p: No Changes General: Per HPI Gastrointestinal: Nausea, Vomiting, Abdominal Pain, Diarrhea Objective Vitals Vital Signs Date Time Temp Pulse Resp B/P (MAP) Pulse Ox O2 Delivery O2 Flow Rate FiO2 01/21/25 08:00 18 87 Room Air* 0 21 01/21/25 07:50 100.3 95 133/84 (100) 100.3 Intake/Output Intake and Output 01/21/25 06:59 Intake Total 740 ml Balance 740 ml Intake Oral 740 ml # Voids 12 # Bowel Movements 10 General Appearance: Alert, Oriented X3, Cooperative, mild distress Lungs: Clear to auscultation, Normal air movement Cardiovascular: Normal S1, Normal S2 Abdomen: Other (Hypoactive bowel sounds, [id number] distention,+ generalized tenderness) Medications Current Medications Medications Dose Ordered Sig/Pedro Pablo Route Start Time Stop Time Status Last Admin Dose Admin Sodium Chloride 10 ml Q8HR IV 01/18/25 06:00 01/21/25 06:29 10 ML Ondansetron HCl 4 mg Q4HP PRN IV 01/18/25 05:30 01/21/25 04:15 4 MG Enoxaparin Sodium 40 mg DAILY SC 01/18/25 10:00 01/21/25 11:05 40 MG Acetaminophen 650 mg Q6HP PRN PO 01/18/25 05:30 01/19/25 19:21 650 MG Morphine Sulfate 2 mg Q3HPRN PRN IV 01/18/25 11:15 01/19/25 05:05 2 MG Diphenhydramine HCl 25 mg Q4HP PRN IV 01/18/25 16:15 Sodium Chloride 1,000 ml @ 75 mls/hr [id number] IV 01/20/25 12:30 01/21/25 01:50 75 MLS/HR Sucralfate 1 gm QID@0600,1130,1700,2200 PO 01/21/25 11:30 01/21/25 11:05 1 GM Enteral Nutritional Formula 240 ml BIDWM PO 01/21/25 18:00 Enteral Nutritional Formula 4 oz BIDWM PO 01/21/25 18:00 Pantoprazole Sodium 40 mg BID PO 01/21/25 10:30 01/21/25 11:05 40 MG Laboratory Results Laboratory Tests 01/19/25 04:46 01/20/25 12:48 Chemistry Test 01/20/25 12:48 Calcium Level 8.7 mg/dL (8.7-10.4) Magnesium Level 1.8 mg/dL (1.6-2.6) Urinalysis Test 01/18/25 06:30 Urine Color Yellow (Yellow) Urine Clarity Clear (Clear) Urine pH 5.5 (5.0-9.0) Urine Specific [place] > 1.050 (1.001-1.035) Urine Protein 1+ (Negative) H Urine Ketones 3+ (Negative) H Urine Blood Negative /uL (Negative) Urine Nitrite Negative (Negative) Urine Bilirubin Negative (Negative) Urine Urobilinogen Normal mg/dL (Negative) Urine Leukocyte Esterase Negative /uL (Negative) Urine RBC 5 /hpf (0 - 4) Urine Microscopic WBC 21 /HPF (0-5) H Urine Squamous Epithelial Cells Mod /hpf (<5) Urine Bacteria None seen /hpf (None Seen) Urine Mucus Few (None Seen) Urine Glucose Normal mg/dL (Normal) Assessment/Plan Assessment/Plan Impression: -questionable ileus versus gastroparesis -rule out bowel obstruction -neuroendocrine tumor with metastasis -dyslipidemia Plan: Events: Patient had return of nausea and vomiting, abdominal pain with bloating, as well as persistent diarrhea. Did not tolerate regular diet. -change IV fluids to half NS 75 -repeat KUB -continue full liquid diet -GI consultation -pain management -PPI -repeat BMP and Mag 01/21/2025 pt still has issue with with PO intake, pt has nausea and abd pain still. Admits to several bowel movement. Pt requests to have another CT abd done Total time spent with patient discussing and formulating plan of care: 35 minutes. Plan discussed with: Patient Date of Service: Jan 21, 2025 Billing Provider: LEANNE LAYNE DO Common Visit Codes: [id number] INP/OBS CARE(HIGH) LEANNE LAYNE DO Jan 21, 2025 11:17
[2025-01-21 12:22] VITALS: BP 145/81; PULSE 94; RESP 18; TEMP 99.3; O2SAT 96
--- NOTE | 2025-01-21 14:47 | DVH ---
CLINICAL INFORMATION: Rule out obstruction. No other clinical information provided. Indication for prior KUB exam was ileus. TECHNIQUE: Axial CT images of the abdomen and pelvis were obtained without IV contrast. Coronal and sagittal reformatted images were obtained, reviewed, and stored. Evaluation of the parenchymal organs is limited without IV contrast. Evaluation of the bowel and mesentery is limited without oral contrast. All CT scans at this medical facility are performed using dose modulation techniques as appropriate to a performed exam including the following: Automated exposure control was utilized; adjustment of the MA and/or KV according to patient size; and use of iterative reconstruction technique. CTDIvol = 6.23 mGy DLP = 325.49 mGy-cm COMPARISON: CT CT AB PEL WITH IV CON ONLY on DOS: 01/18/25, CT CT AB PEL WO CON- NO ORAL OR IV on DOS: 10/28/24, US ABDOMEN COMPLETE SONOGRAM on DOS: 10/18/24 FINDINGS: Lung bases: Lung bases are clear. Liver: Hepatic steatosis. Previously seen liver lesions are not well demonstrated on noncontrast enhanced Exam. There is a 2.5 cm lesion in the left hepatic lobe and a 1.9 cm lesion in the right hepatic lobe. Additional smaller lesion previously seen more anteriorly in the right hepatic lobe is not vi sualized without the benefit of IV contrast. Biliary: Increased density in the gallbladder, likely vicarious excretion of contrast from the prior contrast enhanced CT. Mildly distended gallbladder. Spleen: Unremarkable. Pancreas: Grossly unremarkable in its noncontrast enhanced appearance. Adrenal glands: Unremarkable. No mass. Kidneys: No hydronephrosis. No renal or ureteral calculi. Aorta/Vascular: No aneurysm or significant calcification. Lymph nodes: No lymphadenopathy visualized. Bowel/mesentery: Dilated fluid-filled small bowel loops again seen with areas of small-bowel wall thickening. Relative narrowing of small bowel loops in the right lower abdomen, appears to be associated with ill-defined soft tissue density in this location. Possible partial small bowel obstruction. There are also surgical clips in the right lower abdomen. Motion artifact limits evaluation for subtle findings. Appendix is not visualized. No free air or free fluid visualized. Pelvic organs: Poorly visualized. Bladder: Underdistended and not well evaluated. Abdominal wall: No mass or hernia. Bones: No acute fracture or suspicious intraosseous lesion. IMPRESSION: 1. Dilated fluid-filled small bowel loops with areas of small-bowel wall thickening. There is narrowing of loops of small bowel in the right lower abdomen, possible partial small bowel obstruction associated with ill-defined soft tissue density in this location, may be due to scarring, nonspecific infl ammation, and/or malignancy. Correlate with clinical findings. 2. Distended gallbladder is nonspecific. Correlate with clinical Findings. Increased density in the gallbladder is likely secondary to vicarious excretion of contrast from the prior contrast enhanced CT. 3. Liver lesions again noted, better seen on the prior contrast enhanced exam.
[2025-01-21 16:57] VITALS: BP 128/79; PULSE 74; RESP 18; TEMP 98.9; O2SAT 97
[2025-01-21] MEDS: Ensure HIGH Protein Chocolate 8oz Bottle PO SCH (18:18)
[2025-01-21] MEDS: Ensure Pudding Vanilla 4 oz Cup PO SCH (18:18)
--- NOTE | 2025-01-21 18:30 | DVHPN2 ---
Progress Note - Dictate Date Seen: Jan 21, 2025 Medical Necessity Reason Pt with a Central, PICC or Fol: No Subjective Patient is out of bed to chair Patient states she is feeling better She is tolerating clear liquids and some full liquid diet vital signs Vital Sign Date Time Temp Pulse Resp B/P (MAP) Pulse Ox O2 Delivery O2 Flow Rate FiO2 01/21/25 16:57 98.9 74 18 128/79 (95) 97 98.9 01/21/25 08:00 Room Air* 0 21 Total Intake and Output 01/20/25 01/20/25 01/21/25 15:00 23:00 07:00 Intake Total 500 ml 240 ml Balance 500 ml 240 ml medications Current Medications Medications Dose Ordered Sig/Pedro Pablo Route Start Time Stop Time Status Last Admin Dose Admin Sodium Chloride 10 ml Q8HR IV 01/18/25 06:00 01/21/25 13:43 10 ML Ondansetron HCl 4 mg Q4HP PRN IV 01/18/25 05:30 01/21/25 04:15 4 MG Enoxaparin Sodium 40 mg DAILY SC 01/18/25 10:00 01/21/25 11:05 40 MG Acetaminophen 650 mg Q6HP PRN PO 01/18/25 05:30 01/19/25 19:21 650 MG Morphine Sulfate 2 mg Q3HPRN PRN IV 01/18/25 11:15 01/19/25 05:05 2 MG Diphenhydramine HCl 25 mg Q4HP PRN IV 01/18/25 16:15 Sodium Chloride 1,000 ml @ 75 mls/hr [id number] IV 01/20/25 12:30 01/21/25 15:16 75 MLS/HR Sucralfate 1 gm QID@0600,1130,1700,2200 PO 01/21/25 11:30 01/21/25 17:29 1 GM Enteral Nutritional Formula 240 ml BIDWM PO 01/21/25 18:00 01/21/25 18:18 240 ML Enteral Nutritional Formula 4 oz BIDWM PO 01/21/25 18:00 01/21/25 18:18 4 OZ Pantoprazole Sodium 40 mg BID PO 01/21/25 10:30 01/21/25 11:05 40 MG objective General Appearance: Alert, Oriented X3, Cooperative, mild distress Lungs: Clear to auscultation, Normal air movement Cardiovascular: Normal S1, Normal S2 Abdomen: Other (Hypoactive bowel sounds, mild distention,+ generalized tenderness) laboratory and microbiology Laboratory Tests 01/20/25 12:48 01/19/25 04:46 Test 01/20/25 12:48 Range/Units Serum Glucose 109 H 74-106 mg/dL Problems(with codes): (1) Obstructive ileus of small intestine due to impaction (2) Paralytic ileus (3) Acute generalized abdominal pain (4) Acute nausea with nonbilious vomiting (5) Multiple metastatic lesions in liver (6) Abnormal finding on GI tract imaging Prognosis PLAN Detailed dietary modifications were done Patient was told to avoid Imodium were too many narcotics as that might worsen her ileus She can try Metamucil Try probiotics Carafate suspension 1 g 4 times a day Protonix 40 mg p.o. twice a day Surgical consult appreciated, patient not a surgical candidate at this time Continue supportive care, follow up with [facility] for ongoing chemo treatment Plan discussed with: Patient, Spouse JOSE A SEYMOUR MD Jan 21, 2025 18:30
[2025-01-21 21:00] VITALS: BP 125/86; PULSE 89; RESP 12; TEMP 98.2; O2SAT 96
[2025-01-22 01:00] VITALS: BP 132/89; PULSE 81; RESP 16; TEMP 97.9; O2SAT 97
[2025-01-22 05:00] VITALS: BP 129/81; PULSE 73; RESP 12; TEMP 98.1; O2SAT 95
[2025-01-22 08:06] VITALS: BP 137/85; PULSE 76; RESP 18; TEMP 98.4; O2SAT 97
--- NOTE | 2025-01-22 12:24 | DVHPN2 ---
Reviewed: Care Plan, H&P, Labs, Medications, Previous Orders Changes from previous H/P or p: No Changes General: Per HPI Gastrointestinal: Nausea, Vomiting, Abdominal Pain, Diarrhea Objective Vitals Vital Signs Date Time Temp Pulse Resp B/P (MAP) Pulse Ox O2 Delivery O2 Flow Rate FiO2 01/22/25 08:06 98.4 76 18 137/85 (102) 97 98.4 01/22/25 08:00 Room Air* 0 21 Intake/Output Intake and Output 01/22/25 07:00 Intake Total 740 ml Balance 740 ml Intake Oral 740 ml # Voids 12 # Bowel Movements 19 General Appearance: Alert, Oriented X3, Cooperative, mild distress Lungs: Clear to auscultation, Normal air movement Cardiovascular: Normal S1, Normal S2 Abdomen: Other (Hypoactive bowel sounds, [id number] distention,+ generalized tenderness) Medications Current Medications Medications Dose Ordered Sig/Pedro Pablo Route Start Time Stop Time Status Last Admin Dose Admin Sodium Chloride 10 ml Q8HR IV 01/18/25 06:00 01/22/25 09:50 10 ML Ondansetron HCl 4 mg Q4HP PRN IV 01/18/25 05:30 01/21/25 04:15 4 MG Enoxaparin Sodium 40 mg DAILY SC 01/18/25 10:00 01/22/25 09:50 40 MG Acetaminophen 650 mg Q6HP PRN PO 01/18/25 05:30 01/19/25 19:21 650 MG Morphine Sulfate 2 mg Q3HPRN PRN IV 01/18/25 11:15 01/19/25 05:05 2 MG Diphenhydramine HCl 25 mg Q4HP PRN IV 01/18/25 16:15 Sodium Chloride 1,000 ml @ 75 mls/hr [id number] IV 01/20/25 12:30 01/22/25 04:36 75 MLS/HR Sucralfate 1 gm QID@0600,1130,1700,2200 PO 01/21/25 11:30 01/22/25 09:50 1 GM Enteral Nutritional Formula 240 ml BIDWM PO 01/21/25 18:00 01/21/25 18:18 240 ML Enteral Nutritional Formula 4 oz BIDWM PO 01/21/25 18:00 01/21/25 18:18 4 OZ Pantoprazole Sodium 40 mg BID PO 01/21/25 10:30 01/22/25 09:50 40 MG Laboratory Results Laboratory Tests 01/19/25 04:46 01/20/25 12:48 Urinalysis Test 01/18/25 06:30 Urine Color Yellow (Yellow) Urine Clarity Clear (Clear) Urine pH 5.5 (5.0-9.0) Urine Specific [place] > 1.050 (1.001-1.035) Urine Protein 1+ (Negative) H Urine Ketones 3+ (Negative) H Urine Blood Negative /uL (Negative) Urine Nitrite Negative (Negative) Urine Bilirubin Negative (Negative) Urine Urobilinogen Normal mg/dL (Negative) Urine Leukocyte Esterase Negative /uL (Negative) Urine RBC 5 /hpf (0 - 4) Urine Microscopic WBC 21 /HPF (0-5) H Urine Squamous Epithelial Cells Mod /hpf (<5) Urine Bacteria None seen /hpf (None Seen) Urine Mucus Few (None Seen) Urine Glucose Normal mg/dL (Normal) Microbiology Microbiology Date/Time Source Procedure Growth Status 01/20/25 16:22 Stool Stool Culture - Preliminary Resulted 01/20/25 16:22 Stool Shiga Toxin I & II Pending Resulted Assessment/Plan Assessment/Plan Impression: -questionable ileus versus gastroparesis -rule out bowel obstruction -neuroendocrine tumor with metastasis -dyslipidemia Plan: Events: Patient had return of nausea and vomiting, abdominal pain with bloating, as well as persistent diarrhea. Did not tolerate regular diet. -change IV fluids to half NS 75 -repeat KUB -continue full liquid diet -GI consultation -pain management -PPI -repeat BMP and Mag 01/21/2025 pt still has issue with with PO intake, pt has nausea and abd pain still. Admits to several bowel movement. Pt requests to have another CT abd done CT abd on 01/21/2025 indicates 1. Dilated fluid-filled small bowel loops with areas of small-bowel wall thickening. There is narrowing of loops of small bowel in the right lower abdomen, possible partial small bowel obstruction associated with ill-defined soft tissue density in this location, may be due to scarring, nonspecific inflammation, and/or malignancy. Correlate with clinical findings. 2. Distended gallbladder is nonspecific. Correlate with clinical Findings. Increased density in the gallbladder is likely secondary to vicarious excretion of contrast from the prior contrast enhanced CT. 3. Liver lesions again noted, better seen on the prior contrast enhanced exam. NPO for now Total time spent with patient discussing and formulating plan of care: 35 minutes. Plan discussed with: Patient My Orders Orders - LEANNE LAYNE DO Procedure Category Date Status Time Ct Ab Pel Wo Con-No CT 01/21/25 Resulted Oral Or Iv 13:13 Npo (Nothing By DIET 01/22/25 Transmitted Mouth) Diet Breakfast Date of Service: Jan 22, 2025 Billing Provider: LEANNE LAYNE DO Common Visit Codes: [id number] INP/OBS CARE(HIGH) LEANNE LAYNE DO Jan 22, 2025 12:24
[2025-01-22 12:36] VITALS: BP 131/84; PULSE 82; RESP 20; TEMP 98; O2SAT 97
--- NOTE | 2025-01-22 16:15 | DVHPN2 ---
Progress Note Date Seen: Jan 22, 2025 Resident Creating Document: ONI BURK RESIDENT Medical Necessity Reason Pt with a Central, PICC or Fol: No Subjective Review of Systems Reports more than 12 episodes of watery diarrhea. Denies fever, chills. Stool WBC negative, C diff negative prelim stool culture negative Objective vital signs Vital Sign Date Time Temp Pulse Resp B/P (MAP) Pulse Ox O2 Delivery O2 Flow Rate FiO2 01/22/25 12:36 98.0 82 20 131/84 (100) 97 98.0 01/22/25 08:00 Room Air* 0 21 Total Intake and Output 01/21/25 01/21/25 01/22/25 15:00 23:00 07:00 Intake Total 0 ml 640 ml 100 ml Balance 0 ml 640 ml 100 ml medications Current Medications Medications Dose Ordered Sig/Pedro Pablo Route Start Time Stop Time Status Last Admin Dose Admin Sodium Chloride 10 ml Q8HR IV 01/18/25 06:00 01/22/25 09:50 10 ML Ondansetron HCl 4 mg Q4HP PRN IV 01/18/25 05:30 01/21/25 04:15 4 MG Enoxaparin Sodium 40 mg DAILY SC 01/18/25 10:00 01/22/25 09:50 40 MG Acetaminophen 650 mg Q6HP PRN PO 01/18/25 05:30 01/19/25 19:21 650 MG Morphine Sulfate 2 mg Q3HPRN PRN IV 01/18/25 11:15 01/19/25 05:05 2 MG Diphenhydramine HCl 25 mg Q4HP PRN IV 01/18/25 16:15 Sodium Chloride 1,000 ml @ 75 mls/hr [id number] IV 01/20/25 12:30 01/22/25 04:36 75 MLS/HR Sucralfate 1 gm QID@0600,1130,1700,2200 PO 01/21/25 11:30 01/22/25 09:50 1 GM Enteral Nutritional Formula 240 ml BIDWM PO 01/21/25 18:00 01/21/25 18:18 240 ML Enteral Nutritional Formula 4 oz BIDWM PO 01/21/25 18:00 01/21/25 18:18 4 OZ Pantoprazole Sodium 40 mg BID PO 01/21/25 10:30 01/22/25 09:50 40 MG Examination Patient lying in bed, in no acute distress General: Well-built, afebrile, palor, mucosae are moist Cardiovascular: Regular S1 and S2. No murmurs, gallops or rubs. No JVD elevation. No pedal edema Respiratory: Normal B/L air entry on room air. Clear lung sounds on auscultation Abdomen: Soft, generalized tenderness, mild distention, hypoactive bowel sounds, no rebound tenderness, Genitourinary: Deferred MSK/skin: Seen ambulating Psych/Mental Status: A/Ox3 laboratory and microbiology Laboratory Tests 01/20/25 12:48 01/19/25 04:46 Test 01/20/25 12:48 Range/Units Serum Glucose 109 H 74-106 mg/dL Microbiology Date/Time Source Procedure Growth Status 01/20/25 16:22 Stool Stool Culture - Preliminary Resulted 01/20/25 16:22 Stool Shiga Toxin I & II - Final Resulted Labs and/or images reviewed: Labs reviewed by me, Image(s) reviewed by me Problem List/Assessment/Plan Problem List/Assessment/Plan Likely small-bowel obstruction/ileus Intractable nausea and vomiting 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 Continue supportive care, follow up with [facility] for ongoing chemo treatment Stool WBC negative. Stool culture prelim negative. C diff negative. Detailed dietary modifications were done Patient was told to avoid Imodium were too many narcotics as that might worsen her ileus She can try Metamucil Try probiotics Carafate suspension 1 g 4 times a day Protonix 40 mg p.o. twice a day Surgical consult appreciated, patient not a surgical candidate at this time Plan discussed with patient, at bedside, all questions answered Case discussed with Dr. Germain Plan discussed with: Patient, Spouse (By at bedside) ONI BURK RESIDENT Jan 22, 2025 16:15
[2025-01-22] MEDS: predniSONE 20 MG TAB PO ONE (17:20)
[2025-01-22 17:35] VITALS: BP 158/68; PULSE 84; RESP 20; TEMP 99.1; O2SAT 99
[2025-01-22 21:00] VITALS: BP 125/85; PULSE 81; RESP 18; TEMP 98.1; O2SAT 96
[2025-01-23 01:00] VITALS: BP 124/85; PULSE 77; RESP 19; TEMP 98.7; O2SAT 97
[2025-01-23 05:00] VITALS: BP 129/82; PULSE 67; RESP 18; TEMP 98.4; O2SAT 97
[2025-01-23 05:44] LABS: Hematocrit 37.3 % (36.0-46.0); Hemoglobin 12.8 g/dL (12.2-16.2); Mean Corpuscular Hemoglobin 30.4 pg (28.0-32.0); Mean Corpuscular Volume 88.8 fL (80.0-100.0); Nucleated Red Blood Cells % 0.1 %
[2025-01-23 06:05] LABS: Alanine Aminotransferase 11 U/L (7-40); Albumin 3.2 g/dL (3.2-4.8); Alkaline Phosphatase 76 U/L (46-116); Anion Gap 13 (5-15); BUN/Creatinine Ratio 20.0 (10.0-20.0); Blood Urea Nitrogen 11 mg/dL (9-23); Carbon Dioxide 26 mmol/L (20-31); Chloride 102 mmol/L (98-107); Sodium 141 mmol/L (136-145); Total Protein 5.8 g/dL (5.7-8.2)
[2025-01-23 06:09] LABS: Bilirubin, Total 0.2 mg/dL (0.2-1.0); Calcium 8.5 mg/dL (8.7-10.4); Glucose 119 mg/dL (74-106); Potassium 3.4 mmol/L (3.5-5.1)
[2025-01-23 08:55] VITALS: BP 109/76; PULSE 69; RESP 16; TEMP 99.2; O2SAT 96
[2025-01-23] MEDS: predniSONE 20 MG TAB PO SCH (09:55)
[2025-01-23 13:00] VITALS: BP 129/82; PULSE 64; RESP 16; TEMP 98.1; O2SAT 95
--- NOTE | 2025-01-23 13:49 | DVHDS2 ---
Discharge Summary Date of Admission Jan 18, 2025 at 05:30 Date of Discharge: Jan 23, 2025 Admitting Diagnosis Intractable nausea and vomiting status post chemotherapy Labs/Diagnostic Data: Laboratory Results Test 01/23/25 04:54 01/20/25 16:21 01/20/25 12:48 01/19/25 04:46 White Blood Count 5.4 10^3/uL (4.4-10.8) Red Blood Count 4.20 10^6/uL (4.0-5.20) Hemoglobin 12.8 g/dL (12.2-16.2) Hematocrit 37.3 % (36.0-46.0) Mean Corpuscular Volume 88.8 fL (80.0-100.0) Mean Corpuscular Hemoglobin 30.4 pg (28.0-32.0) Mean Corpuscular Hemoglobin Concent 34.3 g/dL (32.0-36.0) Red Cell Distribution Width 13.1 % (11.8-14.3) Platelet Count 235 10^3/uL (140-450) Mean Platelet Volume 8.7 fL (6.9-10.8) Neutrophils (%) (Auto) 75.0 % (37.0-80.0) Lymphocytes (%) (Auto) 14.0 % (10.0-50.0) Monocytes (%) (Auto) 10.9 % (0.0-12.0) Eosinophils (%) (Auto) 0.0 % (0.0-7.0) Basophils (%) (Auto) 0.1 % (0.0-2.0) Neutrophils # (Auto) 4.0 10 ^3/uL (1.6-8.6) Lymphocytes # (Auto) 0.8 10 ^3/uL (0.4-5.4) Monocytes # (Auto) 0.6 10 ^3/uL (0-1.3) Eosinophils # (Auto) 0 10 ^3/uL (0-0.8) Basophils # (Auto) 0 10 ^3/uL (0-0.2) Nucleated Red Blood Cells 0.1 % Sodium Level 141 mmol/L (136-145) Potassium Level 3.4 mmol/L (3.5-5.1) Chloride Level 102 mmol/L (98-107) Carbon Dioxide Level 26 mmol/L (20-31) Anion Gap 13 (5-15) Blood Urea Nitrogen 11 mg/dL (9-23) Creatinine 0.55 mg/dL (0.550-1.02) Glomerular Filtration Rate Calc 110 mL/min (>90) BUN/Creatinine Ratio 20.0 (10.0-20.0) Serum Glucose 119 mg/dL (74-106) Calcium Level 8.5 mg/dL (8.7-10.4) Total Bilirubin 0.2 mg/dL (0.2-1.0) Aspartate Amino Transferase (AST) 11 U/L (13-40) Alanine Aminotransferase (ALT) 11 U/L (7-40) Alkaline Phosphatase 76 U/L (46-116) Total Protein 5.8 g/dL (5.7-8.2) Albumin 3.2 g/dL (3.2-4.8) Stool for White Cells None seen Magnesium Level 1.8 mg/dL (1.6-2.6) Differential Total Cells Counted 100.0 (100) Neutrophils % (Manual) 29 (37.0-80.0) Band Neutrophils % (Manual) 31 Lymphocytes % (Manual) 19 (10.0-50.0) Monocytes % (Manual) 17 (0-12) Eosinophils % (Manual) 0 (0-7) Basophils % (Manual) 0 (0.0-2.0) Metamyelocytes % (manual) 4 Myelocytes % (Manual) 0 Promyelocytes % (Manual) 0 Blast Cells % (Manual) 0 Reactive Lymphocytes 0 Platelet Estimate Adequate Test 01/18/25 07:55 01/18/25 06:30 01/18/25 05:55 01/18/25 05:50 Lactic Acid Level 1.9 mmol/L (0.4-2.0) Troponin I High Sensitivity < 3 ng/L (</=34) Urine Color Yellow (Yellow) Urine Clarity Clear (Clear) Urine pH 5.5 (5.0-9.0) Urine Specific [place] > 1.050 (1.001-1.035) Urine Protein 1+ (Negative) Urine Ketones 3+ (Negative) Urine Blood Negative /uL (Negative) Urine Nitrite Negative (Negative) Urine Bilirubin Negative (Negative) Urine Urobilinogen Normal mg/dL (Negative) Urine Leukocyte Esterase Negative /uL (Negative) Urine RBC 5 /hpf (0 - 4) Urine Microscopic WBC 21 /HPF (0-5) Urine Squamous Epithelial Cells Mod /hpf (<5) Urine Bacteria None seen /hpf (None Seen) Urine Mucus Few (None Seen) Urine Glucose Normal mg/dL (Normal) Urine Opiates Screen Pos (NEGATIVE) Urine Fentanyl Screen Neg (NEGATIVE) Urine Barbiturates Screen Neg (NEGATIVE) Urine Phencyclidine Screen Neg (NEGATIVE) Urine Amphetamines Screen Neg (NEGATIVE) Urine Benzodiazepines Screen Neg (NEGATIVE) Urine Cocaine Screen Neg (NEGATIVE) Urine Cannabinoids Screen Neg (NEGATIVE) Blood Gas Specimen Type Arterial Blood Gas Sample Site Right radial Blood Gas Patient Temperature 37.0 Arterial Blood Date Drawn [id number] Arterial Blood pH 7.315 (7.350-7.450) Arterial Blood Partial Pressure CO2 32.4 mmHg (32.0-45.0) Arterial Blood Partial Pressure O2 80.6 mmHg (83.0-108.0) Arterial Blood HCO3 16.1 mmol/L (21.0-28.0) Arterial Blood Oxygen Saturation 95.2 % (94.0-98.0) Arterial Blood Base Excess -8.8 mmol/L (-2.0-3.0) Arterial Blood Oxyhemoglobin 93.8 % (94.0-98.0) Arterial Blood Carboxyhemoglobin 0.9 % (0.5-1.5) Arterial Blood Methemoglobin 0.6 % (0.0-1.5) Arterial Blood Deoxyhemoglobin 4.7 % (0.0-5.0) Kaushal Test Yes Blood Gas Total Hemoglobin 15.20 g/dL (12.0-16.0) Blood Gas Liter Flow 0.00 Blood Gas Modality Room air FiO2 % 21.0 Prothrombin Time 12.0 sec (9.3-11.8) Prothrombin Time INR 1.15 (0.9-1.15) Activated Partial Thromboplast Time 29.4 SEC (24.5-34.5) Test 01/18/25 04:06 Lipase 24 U/L (12-53) Other Laboratory Tests 01/23/25 04:54 Brief Hx & Hospital Course: History of Present Illness Ms Yen Zafar, a 54-year-old female with previous history of neuroendocrine tumor resection from bowel on chemotherapy, dyslipidemia, multiple laparoscopies due to endometriosis, hysterectomy with left oophorectomy in 2019, presented to the ER due to intractable nausea and vomiting. According to the patient she can not put water down, since her 1st chemotherapy on Thursday. She felt her abdomen a.m. rock-hard and she had several episodes of nausea and vomiting. She denies any diarrhea. In October 2024, patient was diagnosed with metastatic well-differentiated neuroendocrine tumor, right lower quadrant ago sickle mass well-differentiated neuroendocrine tumor GI, metastatic to liver and peritoneum. with possible multiple metastasic lesion in the liver. The patient underwent laparotomy, right hemicolectomy, resection of peritoneal implant,ascending colostomy on October 31, 2024. She was taking line oriented or somatostatin for the neuroendocrine tumor. On admission the patient was found to have tachycardia, polycythemia, hyperglycemia, anion gap metabolic acidosis and abdomen pelvis CT pending results. We will follow up on She denies any chest pain, shortness of breath, fever, cough or any other complaints. Her blood glucose was also elevated on admission however patient denied any history of diabetes mellitus, she denies any CKD as well. Her last HbA1c was 5.3. Course of hospitalization: Patient was initially treated with bowel rest. Patient had small-bowel follow- through with contrast reaching the colon. Patient had multiple BMs. Patient's diet was advanced, with the patient having return of her nausea and vomiting as well as abdominal distention. Both GI and surgical consultation has been obtained. At this time all medical management has failed at relieving the patient's symptoms. Recommendations are to be transferred back to [facility] for further treatment. Physical examination General: Alert and Oriented x3. No acute distress. Well-nourished. Eyes: EOMI. Anicteric. HENT: Moist mucous membranes. Lungs: Clear to auscultation bilaterally. No accessory muscle use. Cardiovascular: Regular rate and rhythm. No murmur. No JVD. Abdomen: Soft, non-tender and non-distended. No palpable masses. Extremities: No edema. Non-tender. Skin: No rashes or lesions. Warm. Neurologic: No focal neurological deficits. CN II-XII grossly intact, but not individually tested. Psychiatric: Cooperative. Appropriate mood and affect. Total time spent with patient discussing and formulating plan of care: 35 minutes. This medical document was created using an electronic medical record system with CSID dictation system. Although this document has been carefully reviewed, there may still be some phonetic and typographical errors. These areas are purely typographical due to imperfections of the software programs, and do not reflect any compromise in the patient's medical care. Consults/Reason for consult Gastroenterology: Ileus General surgery: Recent removal of neuro endocrine tumor Condition at Discharge: Fair Final Diagnosis/Problems List Small bowel obstruction, ileus, secondary to neuroendocrine tumor -questionable ileus versus gastroparesis -rule out bowel obstruction -neuroendocrine tumor with metastasis -dyslipidemia Discharge Disposition: Acute Care Facility Discharge Instruct/Medications Diet: See Comment Activity: Light activity Follow Up/Referral: Per accepting provider Medications: refer to medication reconciliation form Scheduled Alprazolam (Xanax), 5 MG PO PRN, (Reported) Cholecalciferol (Vitamin D3), 1 TAB PO DAILY, (Reported) Hydroxyzine Hcl (Hydroxyzine Hcl), 5 ML PO PRN, (Reported) Magnesium Oxide (Magnesium Oxide), 1 TAB PO DAILY, (Reported) Oxybutynin Chloride (Gelnique), 1 PACK TOP DAILY, (Reported) Senna (Senokot Extra Strength), 17.2 MG PO QPM Simvastatin (Simvastatin), 10 MG PO DAILY, (Reported) Scheduled PRN Hydrocodone-Acetaminophen (Hydrocodone Bitartrate/AC 5-325 mg), 1 TAB PO Q8HPRN PRN Naloxone HCl (Narcan), 4 MG NA Q5MINP PRN Miscellaneous Medications Calcium Amino Acid Chelate (Calcium), 280 MG PO, (Reported) 36 Discharge Statement: "Patient was advised to return to the ER or call 911 if any headaches, dizziness, shortness of breath, chest pain, abdominal pain, bleeding, fevers, or worsening of medical condition. Patient was counseled about treatment plan, medications, possible side effects, patientverbalized understanding. All questions were answered to the best of my ability. This discharge took greater then 30 minutes in planning, reviewing documentation, counseling the patient, and discussing with other team members." ASSESSMENT ASSESSMENT Assessment Small bowel obstruction, ileus, secondary to neuroendocrine tumor Date of Service: Jan 23, 2025 Billing Provider: SAW RUIZ NP Common Visit Codes: [id number] DISCH DAY >30min ASW RUIZ NP Jan 23, 2025 13:49
--- NOTE | 2025-01-23 13:55 | DVHPN2 ---
Subjective Patient admits abdominal distention and pain Not able to tolerate diet as well + nausea or vomiting Patient has complains of loose watery stool Reviewed: Care Plan, H&P, Labs, Medications, Previous Orders Changes from previous H/P or p: No Changes General: Per HPI Gastrointestinal: Nausea, Vomiting, Abdominal Pain, Diarrhea Objective Vitals Vital Signs Date Time Temp Pulse Resp B/P (MAP) Pulse Ox O2 Delivery O2 Flow Rate FiO2 01/23/25 08:55 99.2 69 16 109/76 (87) 96 99.2 01/23/25 08:00 Room Air* 0 21 Intake/Output Intake and Output 01/23/25 07:00 Intake Total 1250 ml Output Total 800 ml Balance 450 ml Intake Oral 400 ml IV Total 850 ml Output Urine Total 800 ml # Bowel Movements 11 Exam General: Well-built, afebrile, palor, mucosae are moist Cardiovascular: Regular S1 and S2. No murmurs, gallops or rubs. No JVD elevation. No pedal edema Respiratory: Normal B/L air entry on room air. Clear lung sounds on auscultation Abdomen: Soft, generalized tenderness, mild distention, hypoactive bowel sounds, no rebound tenderness, General Appearance: Alert, Oriented X3, Cooperative, mild distress Medications Current Medications Medications Dose Ordered Sig/Pedro Pablo Route Start Time Stop Time Status Last Admin Dose Admin Sodium Chloride 10 ml Q8HR IV 01/18/25 06:00 01/23/25 09:57 10 ML Ondansetron HCl 4 mg Q4HP PRN IV 01/18/25 05:30 01/21/25 04:15 4 MG Enoxaparin Sodium 40 mg DAILY SC 01/18/25 10:00 01/23/25 09:56 40 MG Acetaminophen 650 mg Q6HP PRN PO 01/18/25 05:30 01/19/25 19:21 650 MG Morphine Sulfate 2 mg Q3HPRN PRN IV 01/18/25 11:15 01/19/25 05:05 2 MG Diphenhydramine HCl 25 mg Q4HP PRN IV 01/18/25 16:15 Sodium Chloride 1,000 ml @ 75 mls/hr [id number] IV 01/20/25 12:30 01/22/25 16:08 75 MLS/HR Sucralfate 1 gm QID@0600,1130,1700,2200 PO 01/21/25 11:30 01/23/25 09:56 1 GM Enteral Nutritional Formula 240 ml BIDWM PO 01/21/25 18:00 01/21/25 18:18 240 ML Enteral Nutritional Formula 4 oz BIDWM PO 01/21/25 18:00 01/21/25 18:18 4 OZ Pantoprazole Sodium 40 mg BID PO 01/21/25 10:30 01/23/25 09:56 40 MG Prednisone 20 mg DAILY PO 01/23/25 10:00 01/23/25 09:55 20 MG Laboratory Results Laboratory Tests 01/23/25 04:54 Chemistry Test 01/23/25 04:54 Albumin 3.2 g/dL (3.2-4.8) Calcium Level 8.5 mg/dL (8.7-10.4) L Total Protein 5.8 g/dL (5.7-8.2) LFT Test 01/23/25 04:54 Alanine Aminotransferase (ALT) 11 U/L (7-40) Alkaline Phosphatase 76 U/L (46-116) Aspartate Amino Transferase (AST) 11 U/L (13-40) L Total Bilirubin 0.2 mg/dL (0.2-1.0) Urinalysis Test 01/18/25 06:30 Urine Color Yellow (Yellow) Urine Clarity Clear (Clear) Urine pH 5.5 (5.0-9.0) Urine Specific [place] > 1.050 (1.001-1.035) Urine Protein 1+ (Negative) H Urine Ketones 3+ (Negative) H Urine Blood Negative /uL (Negative) Urine Nitrite Negative (Negative) Urine Bilirubin Negative (Negative) Urine Urobilinogen Normal mg/dL (Negative) Urine Leukocyte Esterase Negative /uL (Negative) Urine RBC 5 /hpf (0 - 4) Urine Microscopic WBC 21 /HPF (0-5) H Urine Squamous Epithelial Cells Mod /hpf (<5) Urine Bacteria None seen /hpf (None Seen) Urine Mucus Few (None Seen) Urine Glucose Normal mg/dL (Normal) Microbiology Microbiology Date/Time Source Procedure Growth Status 01/20/25 16:22 Stool Stool Culture - Preliminary Resulted 01/20/25 16:22 Stool Shiga Toxin I & II - Final Resulted Assessment/Plan Assessment/Plan Possible small bowel obstruction/ileus Intractable nausea vomiting Diarrhea Abdominal pain Neuroendocrine tumor with possible Mets to liver Status post right hemicolectomy Plan: Discussed with Dr. Germain Labs and CTs results reviewed with patient and at bedside Patient in the process of being transferred to [facility] Plan discussed with: Patient, Spouse Date of Service: Jan 23, 2025 Billing Provider: CHELA JEROME Common Visit Codes: [id number] INP/OBS CARE(HIGH) CHELA JEROME Jan 23, 2025 13:55
[2025-01-23 16:30] VITALS: BP 148/90; PULSE 73; RESP 18; TEMP 98.6; O2SAT 96
[2025-01-23 21:00] VITALS: BP 139/77; PULSE 72; RESP 16; TEMP 97.8; O2SAT 95
[2025-01-24] VITALS (7 sets, daily range): BP systolic 113–145; BP diastolic 74–89; PULSE 60–74; RESP 16; TEMP 36.7; O2SAT 96–98
--- NOTE | 2025-01-24 13:29 | DVHPN2 ---
Subjective Patient denies any nausea and vomiting over the past for 4 hours Reviewed: Care Plan, H&P, Labs, Medications, Previous Orders Changes from previous H/P or p: No Changes General: Per HPI Gastrointestinal: Nausea, Vomiting, Abdominal Pain, Diarrhea Objective Vitals Vital Signs Date Time Temp Pulse Resp B/P (MAP) Pulse Ox O2 Delivery O2 Flow Rate FiO2 01/24/25 09:30 97.8 73 16 126/82 (97) 96 97.8 01/24/25 07:50 Room Air* 0 21 Intake/Output Intake and Output 01/24/25 07:00 Intake Total 750 ml Balance 750 ml IV Total 750 ml # Voids 10 # Bowel Movements 3 General Appearance: Alert, Oriented X3, Cooperative, mild distress HEENT: Atraumatic, PERRLA Lungs: Clear to auscultation, Normal air movement Cardiovascular: Normal S1, Normal S2 Abdomen: Other (Hypoactive bowel sounds, [id number] distention,+ generalized tenderness) Skin: Dry, Intact Psych/Mental Status: Mental status NL, Mood NL Medications Current Medications Medications Dose Ordered Sig/Pedro Pablo Route Start Time Stop Time Status Last Admin Dose Admin Sodium Chloride 10 ml Q8HR IV 01/18/25 06:00 01/24/25 05:52 10 ML Ondansetron HCl 4 mg Q4HP PRN IV 01/18/25 05:30 01/21/25 04:15 4 MG Enoxaparin Sodium 40 mg DAILY SC 01/18/25 10:00 01/24/25 10:05 40 MG Acetaminophen 650 mg Q6HP PRN PO 01/18/25 05:30 01/19/25 19:21 650 MG Morphine Sulfate 2 mg Q3HPRN PRN IV 01/18/25 11:15 01/19/25 05:05 2 MG Diphenhydramine HCl 25 mg Q4HP PRN IV 01/18/25 16:15 Sucralfate 1 gm QID@0600,1130,1700,2200 PO 01/21/25 11:30 01/24/25 12:00 1 GM Enteral Nutritional Formula 240 ml BIDWM PO 01/21/25 18:00 01/21/25 18:18 240 ML Enteral Nutritional Formula 4 oz BIDWM PO 01/21/25 18:00 01/21/25 18:18 4 OZ Pantoprazole Sodium 40 mg BID PO 01/21/25 10:30 01/24/25 10:03 40 MG Prednisone 20 mg DAILY PO 01/23/25 10:00 01/24/25 10:03 20 MG Laboratory Results Laboratory Tests 01/23/25 04:54 Urinalysis Test 01/18/25 06:30 Urine Color Yellow (Yellow) Urine Clarity Clear (Clear) Urine pH 5.5 (5.0-9.0) Urine Specific Dexter > 1.050 (1.001-1.035) Urine Protein 1+ (Negative) H Urine Ketones 3+ (Negative) H Urine Blood Negative /uL (Negative) Urine Nitrite Negative (Negative) Urine Bilirubin Negative (Negative) Urine Urobilinogen Normal mg/dL (Negative) Urine Leukocyte Esterase Negative /uL (Negative) Urine RBC 5 /hpf (0 - 4) Urine Microscopic WBC 21 /HPF (0-5) H Urine Squamous Epithelial Cells Mod /hpf (<5) Urine Bacteria None seen /hpf (None Seen) Urine Mucus Few (None Seen) Urine Glucose Normal mg/dL (Normal) Microbiology Microbiology Date/Time Source Procedure Growth Status 01/20/25 16:22 Stool Stool Culture - Final Complete 01/20/25 16:22 Stool Shiga Toxin I & II - Final Complete Labs and/or images reviewed: Labs reviewed by me, Image(s) reviewed by me Assessment/Plan Assessment/Plan Impression: -questionable ileus versus gastroparesis -rule out bowel obstruction -neuroendocrine tumor with metastasis -dyslipidemia Plan: Events: Patient had return of nausea and vomiting, abdominal pain with bloating, as well as persistent diarrhea. Did not tolerate regular diet. -change IV fluids to D5 NS plus 40 mEq potassium chloride -NPO hydralazine as far as tolerated -GI consultation -pain management -PPI, continue Carafate -social service consultation for transfer to [facility] Total time spent with patient discussing and formulating plan of care: 35 minutes. This medical document was created using an electronic medical record system with [employer] ([employer] / [employer]) dictation system. Although this document has been carefully reviewed, there may still be some phonetic and typographical errors. These areas are purely typographical due to imperfections of the software programs, and do not reflect any compromise in the patient's medical care. Plan discussed with: Patient, Other (Rn) My Orders Orders - SAW RUIZ [employer] Procedure Category Date Status Time D5w/Sod Chl 0.9%/Kcl PHA 01/24/25 Logged [id number] 13:30 Date of Service: Jan 24, 2025 Billing Provider: SAW RUIZ NP Common Visit Codes: [id number] INP/OBS CARE(HIGH) SAW RUIZ NP Jan 24, 2025 13:29
--- NOTE | 2025-01-24 15:41 | DVHPN2 ---
Progress Note Date Seen: Jan 24, 2025 Resident Creating Document: ONI BURK RESIDENT Medical Necessity Reason Pt with a Central, PICC or Fol: No Subjective Review of Systems Patient NPO, reports 1 bowel movement. Reports feeling better. Objective vital signs Vital Sign Date Time Temp Pulse Resp B/P (MAP) Pulse Ox O2 Delivery O2 Flow Rate FiO2 01/24/25 15:26 36.7 60 16 98 01/24/25 13:30 131/80 (97) 01/24/25 07:50 Room Air* 0 21 Total Intake and Output 01/23/25 01/23/25 01/24/25 15:00 23:00 07:00 Intake Total 750 ml Balance 750 ml medications Current Medications Medications Dose Ordered Sig/Pedro Pablo Route Start Time Stop Time Status Last Admin Dose Admin Sodium Chloride 10 ml Q8HR IV 01/18/25 06:00 01/24/25 05:52 10 ML Ondansetron HCl 4 mg Q4HP PRN IV 01/18/25 05:30 01/21/25 04:15 4 MG Enoxaparin Sodium 40 mg DAILY SC 01/18/25 10:00 01/24/25 10:05 40 MG Acetaminophen 650 mg Q6HP PRN PO 01/18/25 05:30 01/19/25 19:21 650 MG Morphine Sulfate 2 mg Q3HPRN PRN IV 01/18/25 11:15 01/19/25 05:05 2 MG Diphenhydramine HCl 25 mg Q4HP PRN IV 01/18/25 16:15 Sucralfate 1 gm QID@0600,1130,1700,2200 PO 01/21/25 11:30 01/24/25 12:00 1 GM Enteral Nutritional Formula 240 ml BIDWM PO 01/21/25 18:00 01/21/25 18:18 240 ML Enteral Nutritional Formula 4 oz BIDWM PO 01/21/25 18:00 01/21/25 18:18 4 OZ Pantoprazole Sodium 40 mg BID PO 01/21/25 10:30 01/24/25 10:03 40 MG Prednisone 20 mg DAILY PO 01/23/25 10:00 01/24/25 10:03 20 MG Examination Patient lying in bed, in no acute distress General: Well-built, afebrile, palor, mucosae are moist Cardiovascular: Regular S1 and S2. No murmurs, gallops or rubs. No JVD elevation. No pedal edema Respiratory: Normal B/L air entry on room air. Clear lung sounds on auscultation Abdomen: Soft, generalized tenderness, mild distention, normoactive bowel sounds, no rebound tenderness, Genitourinary: Deferred MSK/skin: Seen ambulating Psych/Mental Status: A/Ox3 laboratory and microbiology Laboratory Tests 01/23/25 04:54 Test 01/23/25 04:54 Range/Units Serum Glucose 119 H 74-106 mg/dL Microbiology Date/Time Source Procedure Growth Status 01/20/25 16:22 Stool Stool Culture - Final Complete 01/20/25 16:22 Stool Shiga Toxin I & II - Final Complete Labs and/or images reviewed: Labs reviewed by me, Image(s) reviewed by me Problem List/Assessment/Plan Problem List/Assessment/Plan Likely small-bowel obstruction/ileus Intractable nausea and vomiting 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 Continue supportive care, patient is in the process to go to [facility] for further management Patient reports taking lanreotide injection for the 1st time following which her symptoms appeared. Stool WBC negative. Stool culture prelim negative. C diff negative. Detailed dietary modifications were done Patient was told to avoid Imodium were too many narcotics as that might worsen her ileus She can try Metamucil Try probiotics Carafate suspension 1 g 4 times a day Protonix 40 mg p.o. twice a day Plan discussed with patient, at bedside, all questions answered Case discussed with Dr. Germain Plan discussed with: Patient Dietary Evaluation Review Recommendations by RD: Increase Calorie Intake Comments: Pt meets criteria for Severe Protein-Calorie Malnutrition in the setting of acute illness based on severe wt loss 10.2kg/13% in 3 months and PO intake <50% Estimated Energy Requirement x 5 days Nutrition Recommendation; 1) Consider TPN/PPN to supply >75% estimated needs 2) Advance diet as medically feasible 3) Monitor NPO status, lab values, weight trend, and I/O Expected Outcomes/Goals: GI symptoms to improve Intake to meet >75% estimated needs FU 2-3 days Food and Nutrition Intake (Sev: <50% est energy req 5days Interpretation of weight loss: >7.5% in 3 months Protein Calorie Malnutrition: Severe Is there a minimum of two crit: Yes ONI BURK RESIDENT Jan 24, 2025 15:41
[2025-01-24] MEDS: D5W/SOD CHL 0.9%/KCL 40MEQ 1,000 ML IV ONE (15:49)
== END 2025-01-24 18:45 | disposition short-term general hospital (02) | DRG 389 ==
LOC: ER 03:50 → OVERFLOW 05:30 → EAST 15:38
PROVIDERS: ADMIT Nurse Practitioner Acute Care; ATTEND Nurse Practitioner Acute Care
DX: K56.699 Other intestinal obstruction unspecified as to partial versus complete obstruction (principal); C7A.8 Other malignant neuroendocrine tumors; C7B.8 Other secondary neuroendocrine tumors; R16.0 Hepatomegaly, not elsewhere classified; E78.5 Hyperlipidemia, unspecified; D75.1 Secondary polycythemia; I10 Essential (primary) hypertension; K31.84 Gastroparesis; N80.9 Endometriosis, unspecified; Z82.3 Family history of stroke; Z82.49 Family history of ischemic heart disease and other diseases of the circulatory system; Z83.3 Family history of diabetes mellitus; Z90.49 Acquired absence of other specified parts of digestive tract; Z90.710 Acquired absence of both cervix and uterus; Z90.721 Acquired absence of ovaries, unilateral; Z92.21 Personal history of antineoplastic chemotherapy; Z93.3 Colostomy status
CPT/HCPCS: 36415; 36600; 74018; 74176; 74177; 74250; 80048; 80053; 80307; 81001; 82805; 83605; 83690; 83735; 84484; 85007; 85025; 85027; 85048; 85610; 85730; 87045; 87427; 87493; G0378; J2405; J2470; J3490